=== PATIENT | female | born 1995 | race Caucasian/White ===

== ENCOUNTER 2016-07-03 21:50 | Emergency (ER) | payer OTHER ==
[~2016-07-03 21:50] MED LIST: BACT400T PO; CIPR500S PO; CIPR500T89 PO; CLAR1TAB2 PO; CYCL10TA PO; GABA-283 PO; LIDO1SOL7 IC; NEUR300C PO; PERC5TAB6 PO; claritin OR
[2016-07-04 00:49] LABS: CONTROL LINE UCG INT CTR LINE PRESENT
[2016-07-04] MEDS ORDERED: KETOROLAC 30 MG/ML VIAL (J1885) As Ordered ONE (01:28)
[2016-07-04 01:31] LABS: BASO % 0.5 % (0.0-1.0); EOS # 0.1 K/mm3 (0.0-0.50); EOS % 1.8 % (0.0-3.0); LARGE UNSTAINED CELL # 0.2 K/mm3 (0.0-0.4); LYMPH # 1.6 K/mm3 (1.5-6.5); LYMPH % 26.9 % (24.0-44.0); MEAN CORPUSCULAR HEMOGLOBIN 28.2 pg (27.0-33.0); MEAN CORPUSCULAR HGB CONC 32.5 g/dl (32.0-36.5); MEAN CORPUSCULAR VOLUME 86.7 fl (80.0-96.0); MONO # 0.5 K/mm3 (0.0-0.8); MONO % 7.8 % (0.0-5.0); NEUTROPHILS # 3.5 K/mm3 (1.8-7.7); PLATELET COUNT, AUTOMATED 230 k/mm3 (150-450); RED CELL DISTRIBUTION WIDTH 11.7 % (11.5-14.5); WHITE BLOOD COUNT 5.9 K/mm3 (4.0-10.0)
[2016-07-04 01:53] LABS: ALBUMIN 4.1 GM/DL (3.2-5.2); ALBUMIN/GLOBULIN RATIO 1.05 (1.00-1.93); ALKALINE PHOSPHATASE 76 U/L (45-117); ALT/SGPT 15 U/L (12-78); AMYLASE 45 U/L (25-115); ANION GAP 11 MEQ/L (8-16); AST/SGOT 11 U/L (15-37); BILIRUBIN,DIRECT < 0.1 MG/DL (0.0-0.2); BILIRUBIN,TOTAL 0.3 MG/DL (0.2-1.0); BLOOD UREA NITROGEN 12 MG/DL (7-18); CALCIUM LEVEL 8.8 MG/DL (8.5-10.1); CARBON DIOXIDE LEVEL 27 MEQ/L (21-32); CHLORIDE LEVEL 105 MEQ/L (98-107); CREATININE FOR GFR 0.77 MG/DL (0.55-1.02); GLOMERULAR FILTRATION RATE > 60.0 (>60); GLUCOSE, FASTING 85 MG/DL (70-105); POTASSIUM SERUM 3.7 MEQ/L (3.5-5.1); SODIUM LEVEL 143 MEQ/L (136-145)
[2016-07-04] MEDS ORDERED: ISOVUE-370 76% 100ML VIAL (Q9967) As Ordered ONE (01:57)
--- NOTE | 2016-07-04 02:40 | REPUSA ---
CLINICAL HISTORY: Abdominal pain TECHNIQUE : A CT of the abdomen and pelvis was performed following the administration of oral and int ravenous contrast from the level of the heart to the proximal femoral diaphyses. Multiplanar reformat s were also obtained in coronal and sagittal projections. COMPARISON: CT abdomen pelvis 03/31/2016 FINDINGS: LOWER CHEST: The lung bases are clear. Heart is normal in size. No pleural or pericardial effusion is seen. LIVER: The liver is normal in size and contour. No hepatic lesion is seen. The portal and hepatic vei ns are patent. BILIARY SYSTEM: No intrahepatic biliary ductal dilatation is seen. The common duct is normal in calib er. The gallbladder is unremarkable with no focal or diffuse wall thickening seen. No pericholecystic fluid is seen. No calcified biliary calculi are identified. PANCREAS: The pancreas is normal in size, contour and density. No solid or cystic pancreatic mass is seen. No pancreatic duct dilatation is seen. SPLEEN: The spleen is normal in size and without focal lesion. ADRENALS: The adrenal glands are unremarkable. KIDNEYS/URETERS: The kidneys are normal in size. There is a posterior right interpole cortical defect with low-attenuation on axial image 50. No stone, gross mass, suspicious cystic lesion, or hydroneph rosis. URINARY BLADDER: The urinary bladder is unremarkable without calcified stone, wall thickening or dive rticula seen. UTERUS/ADNEXA: Within normal size limits with no suspicious lesion. AORTA AND ILIAC ARTERIES: No aneurysmal dilatation of the aorta or iliac arteries is seen. LYMPH NODES: No enlarged adenopathy. GASTROINTESTINAL: Stomach, duodenum , appendix on axial images 67-94, and bowel normal in caliber wit h no abnormal dilatation, stenosis, or wall thickening. PERITONEUM/RETROPERITONEUM: No ascites or suspicious fluid collection, extraluminal air, or suspiciou s mass. ABDOMINAL/PELVIC WALL: No hernia is identified. OSSEOUS STRUCTURES/SOFT TISSUES: No suspicious osseous lesion, acute fracture, or soft tissue abnorma lity. IMPRESSION : Posterior right interpole cortical defect with low attenuation noted which may represent scarring or prior infarct, although in proper clinical setting focal pyelonephritis should also be considered.
[2016-07-04] MEDS ORDERED: DICYCLOMINE 10 MG CAP As Ordered ONE (03:42)
--- NOTE | 2016-07-04 03:50 | EDDOCDS ---
Nurse's Notes [facility] Name: Ambika Pond Age: 21 yrs Sex: Female : 1995 Arrival Date: 07/03/2016 Time: 21:50 Bed 12 Private MD: No Pcp Diagnosis: Abdominal and pelvic pain;Vomiting Presentation: 07/03 22:16 Presenting complaint: Patient states: right sided flank pain and fever x3 days. States ttb she has been vomiting. Denies symptoms. Acute neurological deficits are not present. Mechanism of Injury: No Mechanism of Injury. Adult Sepsis Screening: The patient does not have new or worsening altered mentation. Patient's respiratory rate is less than 22. Systolic blood pressure is greater than 100. Patient has a qSOFA score of 0- Negative Sepsis Screen. Suicide/Homicide risk assessment- the patient denies having any suicidal and/or homicidal ideations and does not present with any other emotional, behavioral or mental health complaints. Status: Patient is not a vehicle service attendant or dependent. Transition of care: patient was not received from another setting of care. 22:16 Acuity: TYRONE Level 3 ttb 22:16 Method Of Arrival: Walkin/Carried/Asstd ttb Triage Assessment: 22:19 General: Appears in no apparent distress, well nourished, well groomed, Behavior is ttb appropriate for age, cooperative, pleasant. Pain: Location: right flank Pain currently is 7 out of 10 on a pain scale. HIV screening NA for this visit Offered previously. Neurological: Level of Consciousness is awake, alert. Cardiovascular: Chest pain is denied. Respiratory: No deficits noted. Airway is patent Denies cough, shortness of breath. GI: Reports vomiting, Denies constipation, cramping, diarrhea, nausea. : Reports pain in right flank(s) Denies burning with urination, urinary frequency, urgency. Musculoskeletal: Range of motion intact in all extremities. 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 Tylenol 325 mg Oral tab 2 tabs every 4 hours (Last dose: 07/03/2016 15:00) - PMHx: Kidney stones; urethral stricture; UTI's, Frequent; - PSHx: Exploratory lap; kidney stents; urethral stricture repair; nephrostomy tube; ear surgery to left ear; Tonsillectomy; Lithotripsy; - Social history: Smoking status: Patient states former smoker of tobacco. Patient/guardian denies using alcohol, street drugs, No barriers to communication noted, The patient speaks fluent Syrian, Speaks appropriately for age. - Family history: Not pertinent. - : The pt / caregiver states he / she is not on anticoagulants. Home medication list is obtained from the patient. - Exposure Risk Screening:: None identified. Screenin/10 01:24 Screening information is obtained from the patient. Fall risk: No risks identified. kas2 Assistance ADL's: requires no assistance with activities of daily living. Abuse/DV Screen: The patient / caregiver reports he/she is: not in a situation that causes fear, pain or injury. Nutritional screening: No deficits noted. Advance Directives: Currently, there is no health care proxy. There is no active DNR order. There is no living will. There is no Power of Mold Repairer. home support is adequate. Assessment: 01:22 General: Appears in no apparent distress, uncomfortable, well nourished, well groomed, kas2 Behavior is appropriate for age, cooperative. Pain: Location: right flank area Pain currently is 4 out of 10 on a pain scale. Neurological: Level of Consciousness is awake, alert, Oriented to person, place, time. Cardiovascular: Capillary refill < 3 seconds Heart tones S1 S2 present Rhythm is sinus rhythm No ectopy. Respiratory: Airway is patent Respiratory effort is even, unlabored, Respiratory pattern is regular, symmetrical, Breath sounds are clear bilaterally. GI: Abdomen is flat, non- distended Bowel sounds present X 4 quads. Abd is soft and non tender X 4 quads. : No deficits noted. Derm: Skin is intact, is healthy with good turgor, Skin is dry, Skin is pink, warm & dry. Skin temperature is warm. 02:24 General: Patient sitting up in bed watching TV. Appears comfortable. No apparent kas2 distress. Denies pain or discomfort at this time. Call russell within reach. Will continue to monitor.. Vital Signs: 07/03 21:52 BP 156 / 97; Pulse 111; Resp 18 S; Temp 97.9(O); Pulse Ox 100% on R/A; Weight 72.57 kg dd6 (R); Height 5 ft. 9 in. (175.26 cm) (R); 07/04 00:49 BP 140 / 89; Pulse 88; Resp 18; Temp 98.1; Pulse Ox 97% ; Pain 8/10; jlm 03:48 BP 138 / 79; Pulse 82; Resp 18; Temp 98.0(O); Pulse Ox 99% on R/A; Pain 0/10; kas2 07/03 21:52 Body Mass Index 23.63 (72.57 kg, 175.26 cm) dd6 Vitals: 07/03 21:52 Log In Time: July 03, 2016 at 21:50. dd6 ED Course: 21:51 Patient visited by Hugh Roberts PCA. dd6 21:51 No Pcp is Private Physician. dd6 21:51 Patient moved to Waiting dd6 21:53 Patient moved to Pre RCE dd6 22:17 Triage Initiated ttb 22:34 UA Sent. ar3 07/04 00:50 Patient visited by Noemí Buck, Pump Tester. [facility] 01:01 Yoko Lancaster RN is Primary Nurse. ajs 01:01 Patient moved to 12 ajs 01:16 Israel Rabago DO is Attending Physician. mm11 01:16 Patient visited by Israel Rabago DO. mm11 01:22 Patient visited by Israel Rabago DO. mm11 01:24 Inserted saline lock: 20 gauge in left antecubital area and blood collected. [facility] patient tolerated the procedure well. No procedures done that require assistance. 01:25 Patient visited by Yoko Lancaster RN. kas2 01:25 Amylase Sent. kas2 01:26 Basic Metabolic Profile Sent. kas2 01:26 CBC with Diff Sent. kas2 01:26 Lipase Sent. kas2 01:26 Liver Profile Sent. kas2 02:25 Patient visited by Yoko Lancaster RN. kas2 02:51 CT ABD & PELVIS: IV Contrast Only Returned. EDMS 03:19 Patient visited by Yoko Lancaster RN. kas2 03:30 [facility] Payment Agreement was scanned into [employer] and attached to record. [facility] 03:37 Referral List is Referral Physician. mm11 03:48 Discontinued IV bleeding controlled, pressure dressing applied, No redness/swelling at [facility] site. 03:49 Patient visited by Yoko Lancaster RN. [facility] 03:49 The patient / caregiver is instructed regarding the plan of care and ED course. kas2 Administered Medications: 01:31 Drug: NS 0.9% 1000 ml [sodium chloride 0.9 % intravenous solution] Route: IV; Rate: kas2 bolus; Site: left antecubital; 01:32 Drug: ketorolac 30 mg [ketorolac 30 mg/mL (1 mL) injection solution (1 mL)] Route: IVP; kas2 Site: left antecubital; 03:47 Drug: Dicyclomine 10 mg [dicyclomine 10 mg capsule (1 caps)] Route: PO; kas2 Order Results: Lab Order: UA; SPEC'M 07/03/16 22:34 Test: APPEARANCE, URINE; Value: CLEAR; Range: CLEAR; Status: F Test: COLOR, URINE; Value: YELLOW; Range: YELLOW; Status: F Test: PH,URINE; Value: 5.0; Range: 5.0-9.0; Units: UNITS; Status: F Test: SPECIFIC GRAVITY URINE AUTO; Value: 1.013; Range: 1.002-1.035; Status: F Test: PROTEIN, URINE AUTO; Value: NEGATIVE; Range: NEGATIVE; Units: mg/dL; Status: F Test: GLUCOSE, URINE (UA) AUTO; Value: NEGATIVE; Range: NEGATIVE; Units: mg/dL; Status: F Test: KETONE, URINE AUTO; Value: NEGATIVE; Range: NEGATIVE; Units: mg/dL; Status: F Test: UROBILINOGEN, URINE AUTO; Value: 0.2; Range: 0.0-2.0; Units: mg/dL; Status: F Test: BILIRUBIN, URINE AUTO; Value: NEGATIVE; Range: NEGATIVE; Status: F Test: NITRITE, URINE AUTO; Value: NEGATIVE; Range: NEGATIVE; Status: F Test: LEUKOCYTE ESTERASE, URINE AUTO; Value: NEGATIVE; Range: NEGATIVE; Status: F Test: BLOOD, URINE BLOOD; Value: NEGATIVE; Range: NEGATIVE; Status: F Test: WBC, URINE AUTO; Value: 2; Range: 0-3; Units: /HPF; Status: F Test: RBC, URINE AUTO; Value: 4; Range: 0-3; Abnormal: Above high normal; Units: /HPF; Status: F Test: BACTERIA, URINE AUTO; Value: 1+; Range: NEGATIVE; Abnormal: Above high normal; Status: F Test: SQUAMOUS EPITHELIAL CELL UR AU; Value: 1; Range: 0-6; Units: /HPF; Status: F Test: MUCUS, URINE; Value: SMALL; Range: NEGATIVE; Status: F Test: HYALINE CAST, URINE AUTO; Value: 0; Range: 0-1; Units: /LPF; Status: F Lab Order: UCG- In Lab; SPEC' 07/03/16 21:50 Test: URINE PREG TEST; Value: NEGATIVE; Range: NEGATIVE; Status: F Lab Order: Amylase; SPEC' 07/04/16 01:21 Test: AMYLASE; Value: 45; Range: 25-115; Units: U/L; Status: F Lab Order: Basic Metabolic Profile; SPEC 07/04/16 01:21 Test: GLUCOSE, FASTING; Value: 85; Range: 70-105; Units: MG/DL; Status: F Test: BLOOD UREA NITROGEN; Value: 12; Range: 7-18; Units: MG/DL; Status: F Test: CREATININE FOR GFR; Value: 0.77; Range: 0.55-1.02; Units: MG/DL; Status: F Test: GLOMERULAR FILTRATION RATE; Value: > 60.0; Range: >60; Status: F Test: SODIUM LEVEL; Value: 143; Range: 136-145; Units: MEQ/L; Status: F Test: POTASSIUM SERUM; Value: 3.7; Range: 3.5-5.1; Units: MEQ/L; Status: F Test: CHLORIDE LEVEL; Value: 105; Range: 98-107; Units: MEQ/L; Status: F Test: CARBON DIOXIDE LEVEL; Value: 27; Range: 21-32; Units: MEQ/L; Status: F Test: ANION GAP; Value: 11; Range: 8-16; Units: MEQ/L; Status: F Test: CALCIUM LEVEL; Value: 8.8; Range: 8.5-10.1; Units: MG/DL; Status: F Test Note: ; Units are mL/min/1.73 m2 Chronic Kidney Disease Staging per NKF: Stage I & II GFR >=60 Normal to Mildly Decreased Stage III GFR 30-59 Moderately Decreased Stage IV GFR 15-29 Severely Decreased Stage V GFR <15 Very Little GFR Left ESRD GFR <15 on [employer] Lab Order: CBC with Diff; SPEC'M 07/04/16 01:21 Test: WHITE BLOOD COUNT; Value: 5.9; Range: 4.0-10.0; Units: K/mm3; Status: F Test: RED BLOOD COUNT; Value: 4.44; Range: 4.00-5.40; Units: M/mm3; Status: F Test: HEMOGLOBIN; Value: 12.5; Range: 12.0-16.0; Units: g/dl; Status: F Test: HEMATOCRIT; Value: 38.5; Range: 36.0-47.0; Units: %; Status: F Test: MEAN CORPUSCULAR VOLUME; Value: 86.7; Range: 80.0-96.0; Units: fl; Status: F Test: MEAN CORPUSCULAR HEMOGLOBIN; Value: 28.2; Range: 27.0-33.0; Units: pg; Status: F Test: MEAN CORPUSCULAR HGB CONC; Value: 32.5; Range: 32.0-36.5; Units: g/dl; Status: F Test: RED CELL DISTRIBUTION WIDTH; Value: 11.7; Range: 11.5-14.5; Units: %; Status: F Test: PLATELET COUNT, AUTOMATED; Value: 230; Range: 150-450; Units: k/mm3; Status: F Test: NEUTROPHILS %; Value: 60.0; Range: 36.0-66.0; Units: %; Status: F Test: LYMPH %; Value: 26.9; Range: 24.0-44.0; Units: %; Status: F Test: MONO %; Value: 7.8; Range: 0.0-5.0; Abnormal: Above high normal; Units: %; Status: F Test: EOS %; Value: 1.8; Range: 0.0-3.0; Units: %; Status: F Test: BASO %; Value: 0.5; Range: 0.0-1.0; Units: %; Status: F Test: LARGE UNSTAINED CELL %; Value: 3.0; Range: 0.0-4.0; Units: %; Status: F Test: NEUTROPHILS #; Value: 3.5; Range: 1.8-7.7; Units: K/mm3; Status: F Test: LYMPH #; Value: 1.6; Range: 1.5-6.5; Units: K/mm3; Status: F Test: MONO #; Value: 0.5; Range: 0.0-0.8; Units: K/mm3; Status: F Test: EOS #; Value: 0.1; Range: 0.0-0.50; Units: K/mm3; Status: F Test: BASO #; Value: 0.0; Range: 0.0-0.2; Units: K/mm3; Status: F Test: LARGE UNSTAINED CELL #; Value: 0.2; Range: 0.0-0.4; Units: K/mm3; Status: F Lab Order: Lipase; SPEC'M 07/04/16 01:21 Test: LIPASE; Value: 69; Range: 73-393; Abnormal: Below low normal; Units: U/L; Status: F Lab Order: Liver Profile; SPEC'M 07/04/16 01:21 Test: AST/SGOT; Value: 11; Range: 15-37; Abnormal: Below low normal; Units: U/L; Status: F Test: ALT/SGPT; Value: 15; Range: 12-78; Units: U/L; Status: F Test: ALKALINE PHOSPHATASE; Value: 76; Range: 45-117; Units: U/L; Status: F Test: BILIRUBIN,TOTAL; Value: 0.3; Range: 0.2-1.0; Units: MG/DL; Status: F Test: BILIRUBIN,DIRECT; Value: < 0.1; Range: 0.0-0.2; Units: MG/DL; Status: F Test: TOTAL PROTEIN; Value: 8.0; Range: 6.4-8.2; Units: GM/DL; Status: F Test: ALBUMIN; Value: 4.1; Range: 3.2-5.2; Units: GM/DL; Status: F Test: ALBUMIN/GLOBULIN RATIO; Value: 1.05; Range: 1.00-1.93; Status: F Radiology Order: CT ABD & PELVIS: IV Contrast Only Test: CT ABD & PELVIS: IV Contrast Only REASON FOR EXAMINATION: Appendicitis; ; CLINICAL HISTORY: Abdominal pain; TECHNIQUE : A CT of the abdomen and pelvis was performed following the administration of oral and int; ravenous contrast from the level of the heart to the proximal femoral diaphyses. Multiplanar reformat; s were also obtained in coronal and sagittal projections.; COMPARISON: CT abdomen pelvis 03/31/2016; FINDINGS:; LOWER CHEST: The lung bases are clear. Heart is normal in size. No pleural or pericardial effusion is; seen.; LIVER: The liver is normal in size and contour. No hepatic lesion is seen. The portal and hepatic vei; ns are patent.; BILIARY SYSTEM: No intrahepatic biliary ductal dilatation is seen. The common duct is normal in calib; er. The gallbladder is unremarkable with no focal or diffuse wall thickening seen. No pericholecystic; fluid is seen. No calcified biliary calculi are identified.; PANCREAS: The pancreas is normal in size, contour and density. No solid or cystic pancreatic mass is; seen. No pancreatic duct dilatation is seen.; SPLEEN: The spleen is normal in size and without focal lesion.; ADRENALS: The adrenal glands are unremarkable.; KIDNEYS/URETERS: The kidneys are normal in size. There is a posterior right interpole cortical defect; with low-attenuation on axial image 50. No stone, gross mass, suspicious cystic lesion, or hydroneph; rosis.; URINARY BLADDER: The urinary bladder is unremarkable without calcified stone, wall thickening or dive; rticula seen.; UTERUS/ADNEXA: Within normal size limits with no suspicious lesion.; AORTA AND ILIAC ARTERIES: No aneurysmal dilatation of the aorta or iliac arteries is seen.; LYMPH NODES: No enlarged adenopathy.; GASTROINTESTINAL: Stomach, duodenum , appendix on axial images 67-94, and bowel normal in caliber wit; h no abnormal dilatation, stenosis, or wall thickening.; PERITONEUM/RETROPERITONEUM: No ascites or suspicious fluid collection, extraluminal air, or suspiciou; s mass.; ABDOMINAL/PELVIC WALL: No hernia is identified.; OSSEOUS STRUCTURES/SOFT TISSUES: No suspicious osseous lesion, acute fracture, or soft tissue abnorma; lity.; IMPRESSION :; Posterior right interpole cortical defect with low attenuation noted which may represent scarring or; prior infarct, although in proper clinical setting focal pyelonephritis should also be considered.; ; Outcome: 03:37 Discharge ordered by Provider. mm11 03:48 Discharge Assessment: patient administered narcotics - no. The following High Risk [facility] Discharge criteria are identified: None. Discharged to home ambulatory. Condition: good Condition: stable Condition: improved. CT Study completed. Property :Personal belongings accompany Pt. 03:49 Patient left the ED. [facility] Signatures: Dispatcher [employer] EDMS Israel Rabago DO DO mm11 Hugh Roberts, SHAREPOINT MANAGER SHAREPOINT MANAGER dd6 Clare Barry, SHAREPOINT MANAGER SHAREPOINT MANAGER ar3 Julee Car Teresa, RN RN ttNoemí Gauthier, Pump Tester Unit Mandie Chavez Kim,JAMES RN kas2 MTDD
--- NOTE | 2016-07-04 03:50 | EDDOCDS ---
Physician Documentation [facility] Name: Ambika Pond Age: 21 yrs Sex: Female : 1995 Arrival Date: 07/03/2016 Time: 21:50 Bed 12 Private MD: No Pcp Disposition: 07/04/16 03:37 Discharged to Home/Self Care. Impression: Abdominal and pelvic pain, Vomiting. - Condition is Stable. - Discharge Instructions: Abdominal Pain, Adult, Nausea and Vomiting. - Prescriptions for ZOFRAN ODT 4 mg - dissolve 1 tablet by ORAL route 4 times per day As needed do not chew, do not swallow whole; 10 tablet. - Medication Reconciliation, Local Pharmacy Hours form. - Follow up: Referral List; When: Call to arrange an appointment; Reason: To establish care. - Problem is an ongoing problem. - Symptoms have improved. Historical: - Allergies: Ampicillin (Hives); Conscious sedation causes conversion disorder; - Home Meds: 1. Tylenol 325 mg Oral tab 2 tabs every 4 hours (Last dose: 07/03/2016 15:00) - PMHx: Kidney stones; urethral stricture; UTI's, Frequent; - PSHx: Exploratory lap; kidney stents; urethral stricture repair; nephrostomy tube; ear surgery to left ear; Tonsillectomy; Lithotripsy; - Social history: Smoking status: Patient states former smoker of tobacco. Patient/guardian denies using alcohol, street drugs, No barriers to communication noted, The patient speaks fluent Polish, Speaks appropriately for age. - Family history: Not pertinent. - : The pt / caregiver states he / she is not on anticoagulants. Home medication list is obtained from the patient. - Exposure Risk Screening:: None identified. 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 9 in. (175.26 cm) (R); 07/04 00:49 BP 140 / 89; Pulse 88; Resp 18; Temp 98.1; Pulse Ox 97% ; Pain 8/10; jlm 03:48 BP 138 / 79; Pulse 82; Resp 18; Temp 98.0(O); Pulse Ox 99% on R/A; Pain 0/10; kas2 07/03 21:52 Body Mass Index 23.63 (72.57 kg, 175.26 cm) dd6 MDM: 07/03 22:26 UA Ordered. EDMS 23:47 UCG- In Lab Ordered. EDMS 23:47 Urine Culture Ordered. EDMS 07/04 01:18 UA Reviewed. mm11 01:18 UCG- In Lab Reviewed. mm11 01:23 NS 0.9% 1000 ml IV at bolus once ordered. mm11 01:23 ketorolac 30 mg IVP once ordered. mm11 01:23 Undress patient appropriately for examination ordered. mm11 01:24 Amylase Ordered. EDMS 01:24 Basic Metabolic Profile Ordered. EDMS 01:24 CBC with Diff Ordered. EDMS 01:24 Lipase Ordered. EDMS 01:24 Liver Profile Ordered. EDMS 01:24 CT ABD & PELVIS: IV Contrast Only Ordered. EDMS 01:24 NOTHING BY MOUTH+DIET ordered. EDMS 01:55 CBC with Diff Reviewed. mm11 01:55 Lipase Reviewed. mm11 01:55 Liver Profile Reviewed. mm11 01:55 Amylase Reviewed. mm11 01:55 Basic Metabolic Profile Reviewed. mm11 02:48 Financial registration complete. [facility] 03:19 CT ABD & PELVIS: IV Contrast Only Reviewed. mm11 03:30 [facility] Payment Agreement was scanned into [employer] and attached to record. [facility] 03:37 Dicyclomine 10 mg PO once ordered. mm11 Administered Medications: 01:31 Drug: NS 0.9% 1000 ml [sodium chloride 0.9 % intravenous solution] Route: IV; Rate: kas2 bolus; Site: left antecubital; 01:32 Drug: ketorolac 30 mg [ketorolac 30 mg/mL (1 mL) injection solution (1 mL)] Route: IVP; kas2 Site: left antecubital; 03:47 Drug: Dicyclomine 10 mg [dicyclomine 10 mg capsule (1 caps)] Route: PO; kas2 Signatures: Dispatcher [employer] EDMS Israel Rabago DO DO mm11 Deirdre Turcios RN RN ttb Hook, Sandra Yoko Linton RN RN kas2 The chart was reviewed and I authenticate all verbal orders and agree with the evaluation and treatment provided.Attachments: 03:30 [facility] Payment Agreement [facility] MTDD
--- NOTE | 2016-07-06 04:50 | EDDOCDS ---
Physician Documentation [facility] Name: Ambika Pond Age: 21 yrs Sex: Female : 1995 Arrival Date: 07/03/2016 Time: 21:50 Bed 12 Private MD: No Pcp Disposition: 07/04/16 03:37 Discharged to Home/Self Care. Impression: Abdominal and pelvic pain, Vomiting. - Condition is Stable. - Discharge Instructions: Abdominal Pain, Adult, Nausea and Vomiting. - Prescriptions for ZOFRAN ODT 4 mg - dissolve 1 tablet by ORAL route 4 times per day As needed do not chew, do not swallow whole; 10 tablet. - Medication Reconciliation, Local Pharmacy Hours form. - Follow up: Referral List; When: Call to arrange an appointment; Reason: To establish care. - Problem is an ongoing problem. - Symptoms have improved. Historical: - Allergies: Ampicillin (Hives); Conscious sedation causes conversion disorder; - Home Meds: 1. Tylenol 325 mg Oral tab 2 tabs every 4 hours (Last dose: 07/03/2016 15:00) - PMHx: Kidney stones; urethral stricture; UTI's, Frequent; - PSHx: Exploratory lap; kidney stents; urethral stricture repair; nephrostomy tube; ear surgery to left ear; Tonsillectomy; Lithotripsy; - Social history: Smoking status: Patient states former smoker of tobacco. Patient/guardian denies using alcohol, street drugs, No barriers to communication noted, The patient speaks fluent Tajik, Speaks appropriately for age. - Family history: Not pertinent. - : The pt / caregiver states he / she is not on anticoagulants. Home medication list is obtained from the patient. - Exposure Risk Screening:: None identified. 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 9 in. (175.26 cm) (R); 07/04 00:49 BP 140 / 89; Pulse 88; Resp 18; Temp 98.1; Pulse Ox 97% ; Pain 8/10; jlm 03:48 BP 138 / 79; Pulse 82; Resp 18; Temp 98.0(O); Pulse Ox 99% on R/A; Pain 0/10; kas2 07/03 21:52 Body Mass Index 23.63 (72.57 kg, 175.26 cm) dd6 MDM: 07/03 22:26 UA Ordered. EDMS 23:47 UCG- In Lab Ordered. EDMS 23:47 Urine Culture Ordered. EDMS 07/04 01:18 UA Reviewed. mm11 01:18 UCG- In Lab Reviewed. mm11 01:23 NS 0.9% 1000 ml IV at bolus once ordered. mm11 01:23 ketorolac 30 mg IVP once ordered. mm11 01:23 Undress patient appropriately for examination ordered. mm11 01:24 Amylase Ordered. EDMS 01:24 Basic Metabolic Profile Ordered. EDMS 01:24 CBC with Diff Ordered. EDMS 01:24 Lipase Ordered. EDMS 01:24 Liver Profile Ordered. EDMS 01:24 CT ABD & PELVIS: IV Contrast Only Ordered. EDMS 01:24 NOTHING BY MOUTH+DIET ordered. EDMS 01:55 CBC with Diff Reviewed. mm11 01:55 Lipase Reviewed. mm11 01:55 Liver Profile Reviewed. mm11 01:55 Amylase Reviewed. mm11 01:55 Basic Metabolic Profile Reviewed. mm11 02:48 Financial registration complete. [facility] 03:19 CT ABD & PELVIS: IV Contrast Only Reviewed. mm11 03:30 [facility] Payment Agreement was scanned into [employer] and attached to record. [facility] 03:37 Dicyclomine 10 mg PO once ordered. mm11 07:53 T-Sheet-- Draft Copy was scanned into [employer] and attached to record. 10:44 Radiology Report was scanned into [employer] and attached to record. gb Administered Medications: 01:31 Drug: NS 0.9% 1000 ml [sodium chloride 0.9 % intravenous solution] Route: IV; Rate: kas2 bolus; Site: left antecubital; 01:32 Drug: ketorolac 30 mg [ketorolac 30 mg/mL (1 mL) injection solution (1 mL)] Route: IVP; kas2 Site: left antecubital; 03:47 Drug: Dicyclomine 10 mg [dicyclomine 10 mg capsule (1 caps)] Route: PO; kas2 Signatures: Dispatcher [employer] EDMS Betancourt Emerita, Reg Reg gb Israel Rabago, DO mm11 Deirdre Turcios RN RN Mandie Rees [facility] Yoko LancasterRN RN kas2 The chart was reviewed and I authenticate all verbal orders and agree with the evaluation and treatment provided.Attachments: 03:30 [facility] Payment Agreement [facility] 07:53 T-Sheet-- Draft Copy Chart Complete MTDD
--- NOTE | 2016-07-06 04:50 | EDDOCDS ---
Physician Documentation [facility] Name: Ambika Pond Age: 21 yrs Sex: Female : 1995 Arrival Date: 07/03/2016 Time: 21:50 Bed 12 Private MD: No Pcp Disposition: 07/04/16 03:37 Discharged to Home/Self Care. Impression: Abdominal and pelvic pain, Vomiting. - Condition is Stable. - Discharge Instructions: Abdominal Pain, Adult, Nausea and Vomiting. - Prescriptions for ZOFRAN ODT 4 mg - dissolve 1 tablet by ORAL route 4 times per day As needed do not chew, do not swallow whole; 10 tablet. - Medication Reconciliation, Local Pharmacy Hours form. - Follow up: Referral List; When: Call to arrange an appointment; Reason: To establish care. - Problem is an ongoing problem. - Symptoms have improved. Historical: - Allergies: Ampicillin (Hives); Conscious sedation causes conversion disorder; - Home Meds: 1. Tylenol 325 mg Oral tab 2 tabs every 4 hours (Last dose: 07/03/2016 15:00) - PMHx: Kidney stones; urethral stricture; UTI's, Frequent; - PSHx: Exploratory lap; kidney stents; urethral stricture repair; nephrostomy tube; ear surgery to left ear; Tonsillectomy; Lithotripsy; - Social history: Smoking status: Patient states former smoker of tobacco. Patient/guardian denies using alcohol, street drugs, No barriers to communication noted, The patient speaks fluent Nepali, Speaks appropriately for age. - Family history: Not pertinent. - : The pt / caregiver states he / she is not on anticoagulants. Home medication list is obtained from the patient. - Exposure Risk Screening:: None identified. 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 9 in. (175.26 cm) (R); 07/04 00:49 BP 140 / 89; Pulse 88; Resp 18; Temp 98.1; Pulse Ox 97% ; Pain 8/10; jlm 03:48 BP 138 / 79; Pulse 82; Resp 18; Temp 98.0(O); Pulse Ox 99% on R/A; Pain 0/10; kas2 07/03 21:52 Body Mass Index 23.63 (72.57 kg, 175.26 cm) dd6 MDM: 07/03 22:26 UA Ordered. EDMS 23:47 UCG- In Lab Ordered. EDMS 23:47 Urine Culture Ordered. EDMS 07/04 01:18 UA Reviewed. mm11 01:18 UCG- In Lab Reviewed. mm11 01:23 NS 0.9% 1000 ml IV at bolus once ordered. mm11 01:23 ketorolac 30 mg IVP once ordered. mm11 01:23 Undress patient appropriately for examination ordered. mm11 01:24 Amylase Ordered. EDMS 01:24 Basic Metabolic Profile Ordered. EDMS 01:24 CBC with Diff Ordered. EDMS 01:24 Lipase Ordered. EDMS 01:24 Liver Profile Ordered. EDMS 01:24 CT ABD & PELVIS: IV Contrast Only Ordered. EDMS 01:24 NOTHING BY MOUTH+DIET ordered. EDMS 01:55 CBC with Diff Reviewed. mm11 01:55 Lipase Reviewed. mm11 01:55 Liver Profile Reviewed. mm11 01:55 Amylase Reviewed. mm11 01:55 Basic Metabolic Profile Reviewed. mm11 02:48 Financial registration complete. [facility] 03:19 CT ABD & PELVIS: IV Contrast Only Reviewed. mm11 03:30 [facility] Payment Agreement was scanned into [employer] and attached to record. [facility] 03:37 Dicyclomine 10 mg PO once ordered. mm11 07:53 T-Sheet-- Draft Copy was scanned into [employer] and attached to record. 10:44 Radiology Report was scanned into [employer] and attached to record. gb Administered Medications: 01:31 Drug: NS 0.9% 1000 ml [sodium chloride 0.9 % intravenous solution] Route: IV; Rate: kas2 bolus; Site: left antecubital; 01:32 Drug: ketorolac 30 mg [ketorolac 30 mg/mL (1 mL) injection solution (1 mL)] Route: IVP; kas2 Site: left antecubital; 03:47 Drug: Dicyclomine 10 mg [dicyclomine 10 mg capsule (1 caps)] Route: PO; kas2 Signatures: Dispatcher [employer] EDMS Betancourt Emerita, Reg Reg gb Israel Rabago, DO mm11 Deirdre Turcios RN RN Mandie Rees [facility] Yoko LancasterRN RN kas2 The chart was reviewed and I authenticate all verbal orders and agree with the evaluation and treatment provided.Attachments: 03:30 [facility] Payment Agreement [facility] 07:53 T-Sheet-- Draft Copy Chart Complete MTDD
--- NOTE | 2016-07-06 04:50 | EDDOCDS ---
Nurse's Notes [facility] Name: Ambika Pond Age: 21 yrs Sex: Female : 1995 Arrival Date: 07/03/2016 Time: 21:50 Bed 12 Private MD: No Pcp Diagnosis: Abdominal and pelvic pain;Vomiting Presentation: 07/03 22:16 Presenting complaint: Patient states: right sided flank pain and fever x3 days. States ttb she has been vomiting. Denies symptoms. Acute neurological deficits are not present. Mechanism of Injury: No Mechanism of Injury. Adult Sepsis Screening: The patient does not have new or worsening altered mentation. Patient's respiratory rate is less than 22. Systolic blood pressure is greater than 100. Patient has a qSOFA score of 0- Negative Sepsis Screen. Suicide/Homicide risk assessment- the patient denies having any suicidal and/or homicidal ideations and does not present with any other emotional, behavioral or mental health complaints. Status: Patient is not a professional services manager or dependent. Transition of care: patient was not received from another setting of care. 22:16 Acuity: TYRONE Level 3 ttb 22:16 Method Of Arrival: Walkin/Carried/Asstd ttb Triage Assessment: 22:19 General: Appears in no apparent distress, well nourished, well groomed, Behavior is ttb appropriate for age, cooperative, pleasant. Pain: Location: right flank Pain currently is 7 out of 10 on a pain scale. HIV screening NA for this visit Offered previously. Neurological: Level of Consciousness is awake, alert. Cardiovascular: Chest pain is denied. Respiratory: No deficits noted. Airway is patent Denies cough, shortness of breath. GI: Reports vomiting, Denies constipation, cramping, diarrhea, nausea. : Reports pain in right flank(s) Denies burning with urination, urinary frequency, urgency. Musculoskeletal: Range of motion intact in all extremities. 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 Tylenol 325 mg Oral tab 2 tabs every 4 hours (Last dose: 07/03/2016 15:00) - PMHx: Kidney stones; urethral stricture; UTI's, Frequent; - PSHx: Exploratory lap; kidney stents; urethral stricture repair; nephrostomy tube; ear surgery to left ear; Tonsillectomy; Lithotripsy; - Social history: Smoking status: Patient states former smoker of tobacco. Patient/guardian denies using alcohol, street drugs, No barriers to communication noted, The patient speaks fluent Panamanian, Speaks appropriately for age. - Family history: Not pertinent. - : The pt / caregiver states he / she is not on anticoagulants. Home medication list is obtained from the patient. - Exposure Risk Screening:: None identified. Screenin/10 01:24 Screening information is obtained from the patient. Fall risk: No risks identified. kas2 Assistance ADL's: requires no assistance with activities of daily living. Abuse/DV Screen: The patient / caregiver reports he/she is: not in a situation that causes fear, pain or injury. Nutritional screening: No deficits noted. Advance Directives: Currently, there is no health care proxy. There is no active DNR order. There is no living will. There is no Power of Solid Waste Facility Operator. home support is adequate. Assessment: 01:22 General: Appears in no apparent distress, uncomfortable, well nourished, well groomed, kas2 Behavior is appropriate for age, cooperative. Pain: Location: right flank area Pain currently is 4 out of 10 on a pain scale. Neurological: Level of Consciousness is awake, alert, Oriented to person, place, time. Cardiovascular: Capillary refill < 3 seconds Heart tones S1 S2 present Rhythm is sinus rhythm No ectopy. Respiratory: Airway is patent Respiratory effort is even, unlabored, Respiratory pattern is regular, symmetrical, Breath sounds are clear bilaterally. GI: Abdomen is flat, non- distended Bowel sounds present X 4 quads. Abd is soft and non tender X 4 quads. : No deficits noted. Derm: Skin is intact, is healthy with good turgor, Skin is dry, Skin is pink, warm & dry. Skin temperature is warm. 02:24 General: Patient sitting up in bed watching TV. Appears comfortable. No apparent kas2 distress. Denies pain or discomfort at this time. Call russell within reach. Will continue to monitor.. Vital Signs: 07/03 21:52 BP 156 / 97; Pulse 111; Resp 18 S; Temp 97.9(O); Pulse Ox 100% on R/A; Weight 72.57 kg dd6 (R); Height 5 ft. 9 in. (175.26 cm) (R); 07/04 00:49 BP 140 / 89; Pulse 88; Resp 18; Temp 98.1; Pulse Ox 97% ; Pain 8/10; jlm 03:48 BP 138 / 79; Pulse 82; Resp 18; Temp 98.0(O); Pulse Ox 99% on R/A; Pain 0/10; kas2 07/03 21:52 Body Mass Index 23.63 (72.57 kg, 175.26 cm) dd6 Vitals: 07/03 21:52 Log In Time: July 03, 2016 at 21:50. dd6 ED Course: 21:51 Patient visited by Hugh Roberts PCA. dd6 21:51 No Pcp is Private Physician. dd6 21:51 Patient moved to Waiting dd6 21:53 Patient moved to Pre RCE dd6 22:17 Triage Initiated ttb 22:34 UA Sent. ar3 07/04 00:50 Patient visited by Noemí Buck, Brass Bobbin Winder. [facility] 01:01 Yoko Lancaster RN is Primary Nurse. ajs 01:01 Patient moved to 12 ajs 01:16 Israel Rabago DO is Attending Physician. mm11 01:16 Patient visited by Israel Rabago DO. mm11 01:22 Patient visited by Israel Rabago DO. mm11 01:24 Inserted saline lock: 20 gauge in left antecubital area and blood collected. The [facility]2 patient tolerated the procedure well. No procedures done that require assistance. 01:25 Patient visited by Yoko Lancaster RN. kas2 01:25 Amylase Sent. kas2 01:26 Basic Metabolic Profile Sent. kas2 01:26 CBC with Diff Sent. kas2 01:26 Lipase Sent. kas2 01:26 Liver Profile Sent. kas2 02:25 Patient visited by Yoko Lancaster RN. kas2 02:51 CT ABD & PELVIS: IV Contrast Only Returned. EDMS 03:19 Patient visited by Yoko Lancaster RN. kas2 03:30 [facility] Payment Agreement was scanned into [employer] and attached to record. [facility] 03:37 Referral List is Referral Physician. mm11 03:48 Discontinued IV bleeding controlled, pressure dressing applied, No redness/swelling at [facility] site. 03:49 Patient visited by Yoko Lancaster RN. [facility] 03:49 The patient / caregiver is instructed regarding the plan of care and ED course. kas2 07:53 T-Sheet-- Draft Copy was scanned into [employer] and attached to record. 10:44 Radiology Report was scanned into [employer] and attached to record. gb Administered Medications: 01:31 Drug: NS 0.9% 1000 ml [sodium chloride 0.9 % intravenous solution] Route: IV; Rate: kas2 bolus; Site: left antecubital; 01:32 Drug: ketorolac 30 mg [ketorolac 30 mg/mL (1 mL) injection solution (1 mL)] Route: IVP; kas2 Site: left antecubital; 03:47 Drug: Dicyclomine 10 mg [dicyclomine 10 mg capsule (1 caps)] Route: PO; kas2 Order Results: Lab Order: UA; SPEC'M 07/03/16 22:34 Test: APPEARANCE, URINE; Value: CLEAR; Range: CLEAR; Status: F Test: COLOR, URINE; Value: YELLOW; Range: YELLOW; Status: F Test: PH,URINE; Value: 5.0; Range: 5.0-9.0; Units: UNITS; Status: F Test: SPECIFIC GRAVITY URINE AUTO; Value: 1.013; Range: 1.002-1.035; Status: F Test: PROTEIN, URINE AUTO; Value: NEGATIVE; Range: NEGATIVE; Units: mg/dL; Status: F Test: GLUCOSE, URINE (UA) AUTO; Value: NEGATIVE; Range: NEGATIVE; Units: mg/dL; Status: F Test: KETONE, URINE AUTO; Value: NEGATIVE; Range: NEGATIVE; Units: mg/dL; Status: F Test: UROBILINOGEN, URINE AUTO; Value: 0.2; Range: 0.0-2.0; Units: mg/dL; Status: F Test: BILIRUBIN, URINE AUTO; Value: NEGATIVE; Range: NEGATIVE; Status: F Test: NITRITE, URINE AUTO; Value: NEGATIVE; Range: NEGATIVE; Status: F Test: LEUKOCYTE ESTERASE, URINE AUTO; Value: NEGATIVE; Range: NEGATIVE; Status: F Test: BLOOD, URINE BLOOD; Value: NEGATIVE; Range: NEGATIVE; Status: F Test: WBC, URINE AUTO; Value: 2; Range: 0-3; Units: /HPF; Status: F Test: RBC, URINE AUTO; Value: 4; Range: 0-3; Abnormal: Above high normal; Units: /HPF; Status: F Test: BACTERIA, URINE AUTO; Value: 1+; Range: NEGATIVE; Abnormal: Above high normal; Status: F Test: SQUAMOUS EPITHELIAL CELL UR AU; Value: 1; Range: 0-6; Units: /HPF; Status: F Test: MUCUS, URINE; Value: SMALL; Range: NEGATIVE; Status: F Test: HYALINE CAST, URINE AUTO; Value: 0; Range: 0-1; Units: /LPF; Status: F Lab Order: UCG- In Lab; [facility]' 07/03/16 21:50 Test: URINE PREG TEST; Value: NEGATIVE; Range: NEGATIVE; Status: F Lab Order: Urine Culture; [facility] 07/03/16 21:50 Test: URINE CULTURE; Value: URINE CULTURE RESULT; Status: F Test: URINE CULTURE; Value: NO GROWTH CLINICAL SIGNIFICANCE 2 OR MORE ORGANISMS; Status: F Lab Order: Amylase; [facility] 07/04/16 01:21 Test: AMYLASE; Value: 45; Range: 25-115; Units: U/L; Status: F Lab Order: Basic Metabolic Profile; [facility] 07/04/16 01:21 Test: GLUCOSE, FASTING; Value: 85; Range: 70-105; Units: MG/DL; Status: F Test: BLOOD UREA NITROGEN; Value: 12; Range: 7-18; Units: MG/DL; Status: F Test: CREATININE FOR GFR; Value: 0.77; Range: 0.55-1.02; Units: MG/DL; Status: F Test: GLOMERULAR FILTRATION RATE; Value: > 60.0; Range: >60; Status: F Test: SODIUM LEVEL; Value: 143; Range: 136-145; Units: MEQ/L; Status: F Test: POTASSIUM SERUM; Value: 3.7; Range: 3.5-5.1; Units: MEQ/L; Status: F Test: CHLORIDE LEVEL; Value: 105; Range: 98-107; Units: MEQ/L; Status: F Test: CARBON DIOXIDE LEVEL; Value: 27; Range: 21-32; Units: MEQ/L; Status: F Test: ANION GAP; Value: 11; Range: 8-16; Units: MEQ/L; Status: F Test: CALCIUM LEVEL; Value: 8.8; Range: 8.5-10.1; Units: MG/DL; Status: F Test Note: ; Units are mL/min/1.73 m2 Chronic Kidney Disease Staging per NKF: Stage I & II GFR >=60 Normal to Mildly Decreased Stage III GFR 30-59 Moderately Decreased Stage IV GFR 15-29 Severely Decreased Stage V GFR <15 Very Little GFR Left ESRD GFR <15 on FINANCIAL ASSISTANT Lab Order: CBC with Diff; SPEC'M 07/04/16 01:21 Test: WHITE BLOOD COUNT; Value: 5.9; Range: 4.0-10.0; Units: K/mm3; Status: F Test: RED BLOOD COUNT; Value: 4.44; Range: 4.00-5.40; Units: M/mm3; Status: F Test: HEMOGLOBIN; Value: 12.5; Range: 12.0-16.0; Units: g/dl; Status: F Test: HEMATOCRIT; Value: 38.5; Range: 36.0-47.0; Units: %; Status: F Test: MEAN CORPUSCULAR VOLUME; Value: 86.7; Range: 80.0-96.0; Units: fl; Status: F Test: MEAN CORPUSCULAR HEMOGLOBIN; Value: 28.2; Range: 27.0-33.0; Units: pg; Status: F Test: MEAN CORPUSCULAR HGB CONC; Value: 32.5; Range: 32.0-36.5; Units: g/dl; Status: F Test: RED CELL DISTRIBUTION WIDTH; Value: 11.7; Range: 11.5-14.5; Units: %; Status: F Test: PLATELET COUNT, AUTOMATED; Value: 230; Range: 150-450; Units: k/mm3; Status: F Test: NEUTROPHILS %; Value: 60.0; Range: 36.0-66.0; Units: %; Status: F Test: LYMPH %; Value: 26.9; Range: 24.0-44.0; Units: %; Status: F Test: MONO %; Value: 7.8; Range: 0.0-5.0; Abnormal: Above high normal; Units: %; Status: F Test: EOS %; Value: 1.8; Range: 0.0-3.0; Units: %; Status: F Test: BASO %; Value: 0.5; Range: 0.0-1.0; Units: %; Status: F Test: LARGE UNSTAINED CELL %; Value: 3.0; Range: 0.0-4.0; Units: %; Status: F Test: NEUTROPHILS #; Value: 3.5; Range: 1.8-7.7; Units: K/mm3; Status: F Test: LYMPH #; Value: 1.6; Range: 1.5-6.5; Units: K/mm3; Status: F Test: MONO #; Value: 0.5; Range: 0.0-0.8; Units: K/mm3; Status: F Test: EOS #; Value: 0.1; Range: 0.0-0.50; Units: K/mm3; Status: F Test: BASO #; Value: 0.0; Range: 0.0-0.2; Units: K/mm3; Status: F Test: LARGE UNSTAINED CELL #; Value: 0.2; Range: 0.0-0.4; Units: K/mm3; Status: F Lab Order: Lipase; SPEC'M 07/04/16 01:21 Test: LIPASE; Value: 69; Range: 73-393; Abnormal: Below low normal; Units: U/L; Status: F Lab Order: Liver Profile; SPEC'M 07/04/16 01:21 Test: AST/SGOT; Value: 11; Range: 15-37; Abnormal: Below low normal; Units: U/L; Status: F Test: ALT/SGPT; Value: 15; Range: 12-78; Units: U/L; Status: F Test: ALKALINE PHOSPHATASE; Value: 76; Range: 45-117; Units: U/L; Status: F Test: BILIRUBIN,TOTAL; Value: 0.3; Range: 0.2-1.0; Units: MG/DL; Status: F Test: BILIRUBIN,DIRECT; Value: < 0.1; Range: 0.0-0.2; Units: MG/DL; Status: F Test: TOTAL PROTEIN; Value: 8.0; Range: 6.4-8.2; Units: GM/DL; Status: F Test: ALBUMIN; Value: 4.1; Range: 3.2-5.2; Units: GM/DL; Status: F Test: ALBUMIN/GLOBULIN RATIO; Value: 1.05; Range: 1.00-1.93; Status: F Radiology Order: CT ABD & PELVIS: IV Contrast Only Test: CT ABD & PELVIS: IV Contrast Only REASON FOR EXAMINATION: Appendicitis; ; CLINICAL HISTORY: Abdominal pain; TECHNIQUE : A CT of the abdomen and pelvis was performed following the administration of oral and int; ravenous contrast from the level of the heart to the proximal femoral diaphyses. Multiplanar reformat; s were also obtained in coronal and sagittal projections.; COMPARISON: CT abdomen pelvis 03/31/2016; FINDINGS:; LOWER CHEST: The lung bases are clear. Heart is normal in size. No pleural or pericardial effusion is; seen.; LIVER: The liver is normal in size and contour. No hepatic lesion is seen. The portal and hepatic vei; ns are patent.; BILIARY SYSTEM: No intrahepatic biliary ductal dilatation is seen. The common duct is normal in calib; er. The gallbladder is unremarkable with no focal or diffuse wall thickening seen. No pericholecystic; fluid is seen. No calcified biliary calculi are identified.; PANCREAS: The pancreas is normal in size, contour and density. No solid or cystic pancreatic mass is; seen. No pancreatic duct dilatation is seen.; SPLEEN: The spleen is normal in size and without focal lesion.; ADRENALS: The adrenal glands are unremarkable.; KIDNEYS/URETERS: The kidneys are normal in size. There is a posterior right interpole cortical defect; with low-attenuation on axial image 50. No stone, gross mass, suspicious cystic lesion, or hydroneph; rosis.; URINARY BLADDER: The urinary bladder is unremarkable without calcified stone, wall thickening or dive; rticula seen.; UTERUS/ADNEXA: Within normal size limits with no suspicious lesion.; AORTA AND ILIAC ARTERIES: No aneurysmal dilatation of the aorta or iliac arteries is seen.; LYMPH NODES: No enlarged adenopathy.; GASTROINTESTINAL: Stomach, duodenum , appendix on axial images 67-94, and bowel normal in caliber wit; h no abnormal dilatation, stenosis, or wall thickening.; PERITONEUM/RETROPERITONEUM: No ascites or suspicious fluid collection, extraluminal air, or suspiciou; s mass.; ABDOMINAL/PELVIC WALL: No hernia is identified.; OSSEOUS STRUCTURES/SOFT TISSUES: No suspicious osseous lesion, acute fracture, or soft tissue abnorma; lity.; IMPRESSION :; Posterior right interpole cortical defect with low attenuation noted which may represent scarring or; prior infarct, although in proper clinical setting focal pyelonephritis should also be considered.; ; Outcome: 03:37 Discharge ordered by Provider. mm11 03:48 Discharge Assessment: patient administered narcotics - no. The following High Risk kas2 Discharge criteria are identified: None. Discharged to home ambulatory. Condition: good Condition: stable Condition: improved. CT Study completed. Property :Personal belongings accompany Pt. 03:49 Patient left the ED. [facility] Signatures: Dispatcher [employer] EDMS Emerita Betancourt, Israel Kang, DO mm11 Hugh Roberts, MONOTYPE SETTER MONOTYPE SETTER dd6 Clare Barry, MONOTYPE SETTER MONOTYPE SETTER ar3 Julee Car Teresa, RN RN Noemí Crandall, Brass Bobbin Winder Unit Mandie Chavez Kim, RN RN kas2 Chart Complete MTDD
== END 2016-07-04 03:49 | disposition home or self-care (01) ==
LOC: M ED 21:50
DX: R11.10 Vomiting, unspecified (principal); R10.9 Unspecified abdominal pain; Z87.442 Personal history of urinary calculi; Z87.440 Personal history of urinary (tract) infections; Z96.0 Presence of urogenital implants; Z87.891 Personal history of nicotine dependence; Z88.1 Allergy status to other antibiotic agents; Z88.4 Allergy status to anesthetic agent
CPT/HCPCS: 36415; 74177; 80048; 80076; 81001; 82150; 83690; 84703; 85025; 87086; 96374; 99285; J1885; Q9967

== ENCOUNTER 2016-07-11 11:26 | Emergency (ER) | payer OTHER ==
--- NOTE | 2016-07-11 13:39 | EDDOCDS ---
Nurse's Notes [facility] Name: Ambika Pond Age: 21 yrs Sex: Female : 1995 Arrival Date: 07/11/2016 Time: 11:26 Bed I7 Private MD: No Pcp Diagnosis: Retention of urine, unspecified Presentation: 07/11 11:38 Presenting complaint: Patient states: ''Unable to Pee'' last void at 2 AM, ''I think I dwg have a UTI''. Adult Sepsis Screening: The patient does not have new or worsening altered mentation. Patient's respiratory rate is less than 22. Systolic blood pressure is greater than 100. Patient has a qSOFA score of 0- Negative Sepsis Screen. Suicide/Homicide risk assessment- the patient denies having any suicidal and/or homicidal ideations and does not present with any other emotional, behavioral or mental health complaints. Status: Patient is not a transaction advisory services manager or dependent. Transition of care: patient was not received from another setting of care. 11:38 Acuity: TYRONE Level 5 [facility] 11:38 Method Of Arrival: Walkin/Carried/Asstd [facility] Triage Assessment: 11:41 General: Appears in no apparent distress. Pain: Pain currently is 10 out of 10 on a [facility] pain scale. HIV screening NA for this visit Offered previously. 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 none - PMHx: Kidney stones; urethral stricture; UTI's, Frequent; - PSHx: Tonsillectomy; Nephrostomy tubes inserted; Kidney stents; Urethral stricture repair; - Social history: Smoking status: Patient states former smoker of tobacco. No barriers to communication noted, The patient speaks fluent Bulgarian. - Family history: Not pertinent. - : The pt / caregiver states he / she is not on anticoagulants. Home medication list is obtained from the patient. - Exposure Risk Screening:: None identified. Screenin:09 Screening information is obtained from the patient. Fall risk: No risks identified. jf3 Assistance ADL's: requires no assistance with activities of daily living. Abuse/DV Screen: The patient / caregiver reports he/she is: not in a situation that causes fear, pain or injury. Nutritional screening: No deficits noted. Advance Directives: Currently, there is no health care proxy. There is no active DNR order. home support is adequate. Assessment: 12:09 General: Appears in no apparent distress, uncomfortable, Behavior is cooperative. Pain: jf3 Location: suprapubic area. Neurological: Level of Consciousness is awake, alert, Oriented to person, place, time. Cardiovascular: Capillary refill < 3 seconds Chest pain is denied. Respiratory: Airway is patent Respiratory effort is even, unlabored, Respiratory pattern is regular, symmetrical. : Reports inability to void since this morning. Derm: Skin is pink, warm & dry. 12:58 Adult Sepsis Screening: The patient does not have new or worsening altered mentation. dsf Patient's respiratory rate is less than 22. Systolic blood pressure is greater than 100. Patient has a qSOFA score of 0- Negative Sepsis Screen. General: Appears in no apparent distress, Behavior is appropriate for age, cooperative. Pain: Location: RLQ Pain currently is 7 out of 10 on a pain scale. Neurological: Level of Consciousness is awake, alert. Cardiovascular: No deficits noted. Respiratory: No deficits noted. : Root in place to gravity drainage Urine is clear. Derm: Skin is pink, warm & dry. 13:37 General: Appears in no apparent distress, comfortable, Behavior is appropriate for age, dsf cooperative. Neurological: Level of Consciousness is awake, alert, Oriented to person, place, time. Cardiovascular: Capillary refill < 3 seconds. Respiratory: Airway is patent Respiratory effort is even, unlabored, Respiratory pattern is regular, symmetrical. : root switched to leg bag. Derm: Skin is pink, warm & dry. Vital Signs: 11:28 BP 168 / 101; Pulse 64; Resp 16; Temp 97.2; Pulse Ox 100% ; Weight 68.04 kg; Height 5 cmb ft. 9 in. (175.26 cm); Pain 0/10; 12:39 BP 122 / 88 RA (man/); jam1 13:31 BP 128 / 82; Pulse 70; Resp 18; Temp 97.4; Pulse Ox 99% ; Pain 0/10; jam1 11:28 Body Mass Index 22.15 (68.04 kg, 175.26 cm) cmb Vitals: 11:28 Log In Time: July 11, 2016 at 11:26. cmb ED Course: 11:27 Patient visited by Harika Plasencia. cmb 11:27 Patient moved to Waiting cmb 11:28 No Pcp is Private Physician. cmb 11:29 Patient moved to Pre RCE cmb 11:39 Triage Initiated dwg 11:50 Patient moved to Triage 2 mb9 11:51 Dannie Zazueta PA-C is PHCP. ar2 11:51 Crow Fitch MD is Attending Physician. ar2 11:51 Patient visited by Dannie Zazueta PA-C. ar2 11:52 Patient moved to 5 kcs 11:53 Patient moved to Triage 2 kcs 11:58 Patient moved to I srm 12:07 Bladder Scan completed Results: 725 mL. jf3 12:09 The patient / caregiver is instructed regarding the plan of care and ED course. jf3 12:10 Patient visited by Haseeb Martinez RN. jf3 12:12 Root cath inserted 16 Fr. Balloon inflated. To gravity drainage. Urine specimen dsf collected. returned clear yellow urine. 12:17 Urine Culture Sent. dsf 12:17 UA Sent. dsf 13:01 Patient visited by Geraldine Taylor RN. dsf 13:24 Andres Carson is Referral Physician. ar2 13:37 No IV's were initiated during this patient's visit. No procedures done that require dsf assistance. Point of Care Testing: Urine : 12:20 hCG Reading: Negative; Control Reading: Positive; dsf Ranges: Output: 12:48 Urine: 1400.00ml (Root); Total: 1400.00ml. dsf 13:37 Urine: 1300.00ml (Root); Total: 2700.00ml. dsf Order Results: Lab Order: UA; SPEC'M 07/11/16 12:16 Test: APPEARANCE, URINE; Value: CLEAR; Range: CLEAR; Status: F Test: COLOR, URINE; Value: STRAW; Range: YELLOW; Status: F Test: PH,URINE; Value: 6.0; Range: 5.0-9.0; Units: UNITS; Status: F Test: SPECIFIC GRAVITY URINE AUTO; Value: 1.006; Range: 1.002-1.035; Status: F Test: PROTEIN, URINE AUTO; Value: NEGATIVE; Range: NEGATIVE; Units: mg/dL; Status: F Test: GLUCOSE, URINE (UA) AUTO; Value: NEGATIVE; Range: NEGATIVE; Units: mg/dL; Status: F Test: KETONE, URINE AUTO; Value: NEGATIVE; Range: NEGATIVE; Units: mg/dL; Status: F Test: UROBILINOGEN, URINE AUTO; Value: 0.2; Range: 0.0-2.0; Units: mg/dL; Status: F Test: BILIRUBIN, URINE AUTO; Value: NEGATIVE; Range: NEGATIVE; Status: F Test: NITRITE, URINE AUTO; Value: NEGATIVE; Range: NEGATIVE; Status: F Test: LEUKOCYTE ESTERASE, URINE AUTO; Value: 1+; Range: NEGATIVE; Abnormal: Above high normal; Status: F Test: BLOOD, URINE BLOOD; Value: NEGATIVE; Range: NEGATIVE; Status: F Test: WBC, URINE AUTO; Value: 5; Range: 0-3; Abnormal: Above high normal; Units: /HPF; Status: F Test: RBC, URINE AUTO; Value: 1; Range: 0-3; Units: /HPF; Status: F Test: BACTERIA, URINE AUTO; Value: NEGATIVE; Range: NEGATIVE; Status: F Test: SQUAMOUS EPITHELIAL CELL UR AU; Value: 0; Range: 0-6; Units: /HPF; Status: F Test: MUCUS, URINE; Value: SMALL; Range: NEGATIVE; Status: F Test: HYALINE CAST, URINE AUTO; Value: 0; Range: 0-1; Units: /LPF; Status: F Outcome: 13:25 Discharge ordered by Provider. ar2 13:37 Discharge Assessment: Patient awake, alert and oriented x 3. No cognitive and/or dsf functional deficits noted. Patient verbalized understanding of disposition instructions. patient administered narcotics - no. The following High Risk Discharge criteria are identified: None. Discharged to home ambulatory. Condition: stable. Discharge instructions given to patient, Instructed on discharge instructions, follow up and referral plans. root catheter care. Demonstrated understanding of instructions, Pt was receptive of discharge instructions/ teaching. No special radiology studies were completed. Property sent home with patient. 13:38 Patient left the ED. dsf Signatures: Lucía Elizondo RN RN kcs Greene, Daniel, RN RN dwg Michelson, Staci, RN RN srm Cristine Groves, SISI GROUNDWATER MONITORING TECHNICIAN jam1 Dannie Zazueta PA-C PA-C ar2 Geraldine Taylor,RN RN annikaf Harika Plasencia Michael,RN RN mb9 Haseeb Martinez RN RN jf3 Corrections: (The following items were deleted from the chart) 12:10 12:06 General: jfJose jf3 MTDD
--- NOTE | 2016-07-11 13:39 | EDDOCDS ---
Physician Documentation [facility] Name: Ambika Pond Age: 21 yrs Sex: Female : 1995 Arrival Date: 07/11/2016 Time: 11:26 Bed I7 / 29 Private MD: No Pcp Disposition: 07/11/16 13:25 Discharged to Home/Self Care. Impression: Retention of urine, unspecified. - Condition is Stable. - Discharge Instructions: Acosta Catheter Care, Adult, Urinary Retention, Acute, Female. - Medication Reconciliation, Local Pharmacy Hours form. - Follow up: Andres Carson; When: Call to arrange an appointment; Reason: Recheck today's complaints, Continuance of care. - Problem is new. - Symptoms are unchanged. Historical: - Allergies: Ampicillin (Hives); Conscious sedation causes conversion disorder; - Home Meds: 1. none - PMHx: Kidney stones; urethral stricture; UTI's, Frequent; - PSHx: Tonsillectomy; Nephrostomy tubes inserted; Kidney stents; Urethral stricture repair; - Social history: Smoking status: Patient states former smoker of tobacco. No barriers to communication noted, The patient speaks fluent Argentine. - Family history: Not pertinent. - : The pt / caregiver states he / she is not on anticoagulants. Home medication list is obtained from the patient. - Exposure Risk Screening:: None identified. 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 9 in. (175.26 cm); Pain 0/10; 12:39 BP 122 / 88 RA (man/); jam1 13:31 BP 128 / 82; Pulse 70; Resp 18; Temp 97.4; Pulse Ox 99% ; Pain 0/10; jam1 11:28 Body Mass Index 22.15 (68.04 kg, 175.26 cm) cmb MDM: 11:56 UCG by Nursing ordered. ar2 11:56 Acosta ordered. ar2 11:56 Undress patient appropriately for examination ordered. ar2 11:57 UA Ordered. EDMS 11:57 Urine Culture Ordered. EDMS 12:33 Financial registration complete. lg 13:03 UA Reviewed. ar2 Point of Care Testing: Urine : 12:20 hCG Reading: Negative; Control Reading: Positive; dsf Ranges: Signatures: Dispatcher [employer] EDToño Ivan, RN RN dwg Starr Jones, Reg Reg lg Dannie Zazueta PA-C PA-C ar2 Geraldine Taylor RN RN dsf Haseeb Martinez RN RN jf3 MTDD
--- NOTE | 2016-07-13 14:39 | EDDOCDS ---
Physician Documentation [facility] Name: Ambika Pond Age: 21 yrs Sex: Female : 1995 Arrival Date: 07/11/2016 Time: 11:26 Bed I7 / 29 Private MD: No Pcp Disposition: 07/11/16 13:25 Discharged to Home/Self Care. Impression: Retention of urine, unspecified. - Condition is Stable. - Discharge Instructions: Acosta Catheter Care, Adult, Urinary Retention, Acute, Female. - Medication Reconciliation, Local Pharmacy Hours form. - Follow up: Andres Carson; When: Call to arrange an appointment; Reason: Recheck today's complaints, Continuance of care. - Problem is new. - Symptoms are unchanged. Historical: - Allergies: Ampicillin (Hives); Conscious sedation causes conversion disorder; - Home Meds: 1. none - PMHx: Kidney stones; urethral stricture; UTI's, Frequent; - PSHx: Tonsillectomy; Nephrostomy tubes inserted; Kidney stents; Urethral stricture repair; - Social history: Smoking status: Patient states former smoker of tobacco. No barriers to communication noted, The patient speaks fluent Belizean. - Family history: Not pertinent. - : The pt / caregiver states he / she is not on anticoagulants. Home medication list is obtained from the patient. - Exposure Risk Screening:: None identified. 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 9 in. (175.26 cm); Pain 0/10; 12:39 BP 122 / 88 RA (man/); jam1 13:31 BP 128 / 82; Pulse 70; Resp 18; Temp 97.4; Pulse Ox 99% ; Pain 0/10; jam1 11:28 Body Mass Index 22.15 (68.04 kg, 175.26 cm) cmb MDM: 11:56 UCG by Nursing ordered. ar2 11:56 Acosta ordered. ar2 11:56 Undress patient appropriately for examination ordered. ar2 11:57 UA Ordered. EDMS 11:57 Urine Culture Ordered. EDMS 12:33 Financial registration complete. lg 13:03 UA Reviewed. ar2 07/12 10:18 T-Sheet-- Draft Copy was scanned into [email or web address] and attached to record. david Point of Care Testing: Urine : 07/11 12:20 hCG Reading: Negative; Control Reading: Positive; dsf Ranges: Signatures: Dispatcher [employer] Toño Diego, RN RN dwg Emerita Betancourt, Reg Reg gb Starr Jones, Reg Reg lg Dannie Zazueta PA-C PA-C ar2 Geraldine TaylorRN RN dsf Haseeb Martinez,JAMES RN jf3 The chart was reviewed and I authenticate all verbal orders and agree with the evaluation and treatment provided.Attachments: 07/12 10:18 T-Sheet-- Draft Copy gb Chart Complete MTDD
--- NOTE | 2016-07-13 14:39 | EDDOCDS ---
Nurse's Notes [facility] Name: Ambika Pond Age: 21 yrs Sex: Female : 1995 Arrival Date: 07/11/2016 Time: 11:26 Bed I7 Private MD: No Pcp Diagnosis: Retention of urine, unspecified Presentation: 07/11 11:38 Presenting complaint: Patient states: ''Unable to Pee'' last void at 2 AM, ''I think I dwg have a UTI''. Adult Sepsis Screening: The patient does not have new or worsening altered mentation. Patient's respiratory rate is less than 22. Systolic blood pressure is greater than 100. Patient has a qSOFA score of 0- Negative Sepsis Screen. Suicide/Homicide risk assessment- the patient denies having any suicidal and/or homicidal ideations and does not present with any other emotional, behavioral or mental health complaints. Status: Patient is not a fitness services manager or dependent. Transition of care: patient was not received from another setting of care. 11:38 Acuity: TYRONE Level 5 [facility] 11:38 Method Of Arrival: Walkin/Carried/Asstd [facility] Triage Assessment: 11:41 General: Appears in no apparent distress. Pain: Pain currently is 10 out of 10 on a [facility] pain scale. HIV screening NA for this visit Offered previously. NEGATIVE ASSEMBLER: 11:41 LMP 06/21/2016 [facility] Historical: - Allergies: Ampicillin (Hives); Conscious sedation causes conversion disorder; - Home Meds: 1. none - PMHx: Kidney stones; urethral stricture; UTI's, Frequent; - PSHx: Tonsillectomy; Nephrostomy tubes inserted; Kidney stents; Urethral stricture repair; - Social history: Smoking status: Patient states former smoker of tobacco. No barriers to communication noted, The patient speaks fluent Yi. - Family history: Not pertinent. - : The pt / caregiver states he / she is not on anticoagulants. Home medication list is obtained from the patient. - Exposure Risk Screening:: None identified. Screenin:09 Screening information is obtained from the patient. Fall risk: No risks identified. jf3 Assistance ADL's: requires no assistance with activities of daily living. Abuse/DV Screen: The patient / caregiver reports he/she is: not in a situation that causes fear, pain or injury. Nutritional screening: No deficits noted. Advance Directives: Currently, there is no health care proxy. There is no active DNR order. home support is adequate. Assessment: 12:09 General: Appears in no apparent distress, uncomfortable, Behavior is cooperative. Pain: jf3 Location: suprapubic area. Neurological: Level of Consciousness is awake, alert, Oriented to person, place, time. Cardiovascular: Capillary refill < 3 seconds Chest pain is denied. Respiratory: Airway is patent Respiratory effort is even, unlabored, Respiratory pattern is regular, symmetrical. : Reports inability to void since this morning. Derm: Skin is pink, warm & dry. 12:58 Adult Sepsis Screening: The patient does not have new or worsening altered mentation. dsf Patient's respiratory rate is less than 22. Systolic blood pressure is greater than 100. Patient has a qSOFA score of 0- Negative Sepsis Screen. General: Appears in no apparent distress, Behavior is appropriate for age, cooperative. Pain: Location: RLQ Pain currently is 7 out of 10 on a pain scale. Neurological: Level of Consciousness is awake, alert. Cardiovascular: No deficits noted. Respiratory: No deficits noted. : Root in place to gravity drainage Urine is clear. Derm: Skin is pink, warm & dry. 13:37 General: Appears in no apparent distress, comfortable, Behavior is appropriate for age, dsf cooperative. Neurological: Level of Consciousness is awake, alert, Oriented to person, place, time. Cardiovascular: Capillary refill < 3 seconds. Respiratory: Airway is patent Respiratory effort is even, unlabored, Respiratory pattern is regular, symmetrical. : root switched to leg bag. Derm: Skin is pink, warm & dry. Vital Signs: 11:28 BP 168 / 101; Pulse 64; Resp 16; Temp 97.2; Pulse Ox 100% ; Weight 68.04 kg; Height 5 cmb ft. 9 in. (175.26 cm); Pain 0/10; 12:39 BP 122 / 88 RA (man/); jam1 13:31 BP 128 / 82; Pulse 70; Resp 18; Temp 97.4; Pulse Ox 99% ; Pain 0/10; jam1 11:28 Body Mass Index 22.15 (68.04 kg, 175.26 cm) cmb Vitals: 11:28 Log In Time: July 11, 2016 at 11:26. cmb ED Course: 11:27 Patient visited by Harika Plasencia. cmb 11:27 Patient moved to Waiting cmb 11:28 No Pcp is Private Physician. cmb 11:29 Patient moved to Pre RCE cmb 11:39 Triage Initiated dwg 11:50 Patient moved to Triage 2 mb9 11:51 Dannie Zazueta PA-C is PHCP. ar2 11:51 Crow Fitch MD is Attending Physician. ar2 11:51 Patient visited by Dannie Zazueta PA-C. ar2 11:52 Patient moved to 5 kcs 11:53 Patient moved to Triage 2 kcs 11:58 Patient moved to I7 / srm 12:07 Bladder Scan completed Results: 725 mL. jf3 12:09 The patient / caregiver is instructed regarding the plan of care and ED course. jf3 12:10 Patient visited by Haseeb Martinez RN. jf3 12:12 Root cath inserted 16 Fr. Balloon inflated. To gravity drainage. Urine specimen dsf collected. returned clear yellow urine. 12:17 Urine Culture Sent. dsf 12:17 UA Sent. dsf 13:01 Patient visited by Geraldine Taylor RN. dsf 13:24 Andres Carson is Referral Physician. ar2 13:37 No IV's were initiated during this patient's visit. No procedures done that require dsf assistance. 07/12 10:18 T-Sheet-- Draft Copy was scanned into [employer] and attached to record. Point of Care Testing: Urine : 07/11 12:20 hCG Reading: Negative; Control Reading: Positive; dsf Ranges: Output: 12:48 Urine: 1400.00ml (Root); Total: 1400.00ml. dsf 13:37 Urine: 1300.00ml (Root); Total: 2700.00ml. dsf Order Results: Lab Order: UA; SPEC'M 07/11/16 12:16 Test: APPEARANCE, URINE; Value: CLEAR; Range: CLEAR; Status: F Test: COLOR, URINE; Value: STRAW; Range: YELLOW; Status: F Test: PH,URINE; Value: 6.0; Range: 5.0-9.0; Units: UNITS; Status: F Test: SPECIFIC GRAVITY URINE AUTO; Value: 1.006; Range: 1.002-1.035; Status: F Test: PROTEIN, URINE AUTO; Value: NEGATIVE; Range: NEGATIVE; Units: mg/dL; Status: F Test: GLUCOSE, URINE (UA) AUTO; Value: NEGATIVE; Range: NEGATIVE; Units: mg/dL; Status: F Test: KETONE, URINE AUTO; Value: NEGATIVE; Range: NEGATIVE; Units: mg/dL; Status: F Test: UROBILINOGEN, URINE AUTO; Value: 0.2; Range: 0.0-2.0; Units: mg/dL; Status: F Test: BILIRUBIN, URINE AUTO; Value: NEGATIVE; Range: NEGATIVE; Status: F Test: NITRITE, URINE AUTO; Value: NEGATIVE; Range: NEGATIVE; Status: F Test: LEUKOCYTE ESTERASE, URINE AUTO; Value: 1+; Range: NEGATIVE; Abnormal: Above high normal; Status: F Test: BLOOD, URINE BLOOD; Value: NEGATIVE; Range: NEGATIVE; Status: F Test: WBC, URINE AUTO; Value: 5; Range: 0-3; Abnormal: Above high normal; Units: /HPF; Status: F Test: RBC, URINE AUTO; Value: 1; Range: 0-3; Units: /HPF; Status: F Test: BACTERIA, URINE AUTO; Value: NEGATIVE; Range: NEGATIVE; Status: F Test: SQUAMOUS EPITHELIAL CELL UR AU; Value: 0; Range: 0-6; Units: /HPF; Status: F Test: MUCUS, URINE; Value: SMALL; Range: NEGATIVE; Status: F Test: HYALINE CAST, URINE AUTO; Value: 0; Range: 0-1; Units: /LPF; Status: F Lab Order: Urine Culture; SPEC'M 07/11/16 12:16 Test: URINE CULTURE; Value: ORGANISM 1: ENTEROCOCCUS FAECALIS; Status: F Test: URINE CULTURE; Value: ENTEROCOCCUS FAECALIS; Status: F Test: URINE CULTURE; Value: COLONY COUNT CFU/ml >100,000; Status: F Test: URINE CULTURE; Value: GRAM POS SENSI - VITEK 67; Status: F Test: URINE CULTURE; Value: Method: VIT2; Status: F Test: URINE CULTURE; Value: TETRACYCLINE >=16 R; Status: F Test: URINE CULTURE; Value: PENICILLIN G 1 S; Status: F Test: URINE CULTURE; Value: AMPICILLIN <=2 S; Status: F Test: URINE CULTURE; Value: ERYTHROMYCIN 2 I; Status: F Test: URINE CULTURE; Value: GENTAMICIN 500 S; Status: F Test: URINE CULTURE; Value: NITROFURANTOIN <=16 S; Status: F Test: URINE CULTURE; Value: LEVOFLOXACIN 0.5 S; Status: F Test: URINE CULTURE; Value: CIPROFLOXACIN <=0.5 S; Status: F Test: URINE CULTURE; Value: VANCOMYCIN 1 S; Status: F Outcome: 13:25 Discharge ordered by Provider. ar2 13:37 Discharge Assessment: Patient awake, alert and oriented x 3. No cognitive and/or dsf functional deficits noted. Patient verbalized understanding of disposition instructions. patient administered narcotics - no. The following High Risk Discharge criteria are identified: None. Discharged to home ambulatory. Condition: stable. Discharge instructions given to patient, Instructed on discharge instructions, follow up and referral plans. root catheter care. Demonstrated understanding of instructions, Pt was receptive of discharge instructions/ teaching. No special radiology studies were completed. Property sent home with patient. 13:38 Patient left the ED. dsf Signatures: Lucía Elizondo RN RN Toño Spivey RN RN dwg Michelson, Staci, RN RN srm Cristine Groves, MANAGER CRITICAL CARE MANAGER CRITICAL CARE jam1 Emerita Betancourt, Reg Reg gb Dannie Zazueta PA-C PA-Yobani ar2 Geraldine Taylor RN RN dsf Harika Plasencia MichaelRN RN mb9 Haseeb Martinez,JAMES RN jf3 Corrections: (The following items were deleted from the chart) 12:10 12:06 General: tianna jf3 Chart Complete MTDD
--- NOTE | 2016-07-13 14:39 | EDDOCDS ---
Physician Documentation [facility] Name: Ambika Pond Age: 21 yrs Sex: Female : 1995 Arrival Date: 07/11/2016 Time: 11:26 Bed I7 / 29 Private MD: No Pcp Disposition: 07/11/16 13:25 Discharged to Home/Self Care. Impression: Retention of urine, unspecified. - Condition is Stable. - Discharge Instructions: Acosta Catheter Care, Adult, Urinary Retention, Acute, Female. - Medication Reconciliation, Local Pharmacy Hours form. - Follow up: Andres Carson; When: Call to arrange an appointment; Reason: Recheck today's complaints, Continuance of care. - Problem is new. - Symptoms are unchanged. Historical: - Allergies: Ampicillin (Hives); Conscious sedation causes conversion disorder; - Home Meds: 1. none - PMHx: Kidney stones; urethral stricture; UTI's, Frequent; - PSHx: Tonsillectomy; Nephrostomy tubes inserted; Kidney stents; Urethral stricture repair; - Social history: Smoking status: Patient states former smoker of tobacco. No barriers to communication noted, The patient speaks fluent Angolan. - Family history: Not pertinent. - : The pt / caregiver states he / she is not on anticoagulants. Home medication list is obtained from the patient. - Exposure Risk Screening:: None identified. 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 9 in. (175.26 cm); Pain 0/10; 12:39 BP 122 / 88 RA (man/); jam1 13:31 BP 128 / 82; Pulse 70; Resp 18; Temp 97.4; Pulse Ox 99% ; Pain 0/10; jam1 11:28 Body Mass Index 22.15 (68.04 kg, 175.26 cm) cmb MDM: 11:56 UCG by Nursing ordered. ar2 11:56 Acosta ordered. ar2 11:56 Undress patient appropriately for examination ordered. ar2 11:57 UA Ordered. EDMS 11:57 Urine Culture Ordered. EDMS 12:33 Financial registration complete. lg 13:03 UA Reviewed. ar2 07/12 10:18 T-Sheet-- Draft Copy was scanned into [employer] and attached to record. david Point of Care Testing: Urine : 07/11 12:20 hCG Reading: Negative; Control Reading: Positive; dsf Ranges: Signatures: Dispatcher [employer] Toño Diego, RN RN dwg Emerita Betancourt, Reg Reg gb Starr Jones, Reg Reg lg Dannie Zazueta PA-C PA-C ar2 Geraldine TaylorRN RN dsf Haseeb Martinez,JAMES RN jf3 The chart was reviewed and I authenticate all verbal orders and agree with the evaluation and treatment provided.Attachments: 07/12 10:18 T-Sheet-- Draft Copy gb Chart Complete MTDD
--- NOTE | 2016-07-14 12:14 | EDDOCDS ---
Nurse's Notes [facility] Name: Ambika Pond Age: 21 yrs Sex: Female : 1995 Arrival Date: 07/11/2016 Time: 11:26 Bed I7 Private MD: No Pcp Diagnosis: Retention of urine, unspecified Presentation: 07/11 11:38 Presenting complaint: Patient states: ''Unable to Pee'' last void at 2 AM, ''I think I dwg have a UTI''. Adult Sepsis Screening: The patient does not have new or worsening altered mentation. Patient's respiratory rate is less than 22. Systolic blood pressure is greater than 100. Patient has a qSOFA score of 0- Negative Sepsis Screen. Suicide/Homicide risk assessment- the patient denies having any suicidal and/or homicidal ideations and does not present with any other emotional, behavioral or mental health complaints. Status: Patient is not a community service coordinator or dependent. Transition of care: patient was not received from another setting of care. 11:38 Acuity: TYRONE Level 5 [facility] 11:38 Method Of Arrival: Walkin/Carried/[facility] Triage Assessment: 11:41 General: Appears in no apparent distress. Pain: Pain currently is 10 out of 10 on a [facility] pain scale. HIV screening NA for this visit Offered previously. 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 none - PMHx: Kidney stones; urethral stricture; UTI's, Frequent; - PSHx: Tonsillectomy; Nephrostomy tubes inserted; Kidney stents; Urethral stricture repair; - Social history: Smoking status: Patient states former smoker of tobacco. No barriers to communication noted, The patient speaks fluent Syriac. - Family history: Not pertinent. - : The pt / caregiver states he / she is not on anticoagulants. Home medication list is obtained from the patient. - Exposure Risk Screening:: None identified. Screenin:09 Screening information is obtained from the patient. Fall risk: No risks identified. jf3 Assistance ADL's: requires no assistance with activities of daily living. Abuse/DV Screen: The patient / caregiver reports he/she is: not in a situation that causes fear, pain or injury. Nutritional screening: No deficits noted. Advance Directives: Currently, there is no health care proxy. There is no active DNR order. home support is adequate. Assessment: 12:09 General: Appears in no apparent distress, uncomfortable, Behavior is cooperative. Pain: jf3 Location: suprapubic area. Neurological: Level of Consciousness is awake, alert, Oriented to person, place, time. Cardiovascular: Capillary refill < 3 seconds Chest pain is denied. Respiratory: Airway is patent Respiratory effort is even, unlabored, Respiratory pattern is regular, symmetrical. : Reports inability to void since this morning. Derm: Skin is pink, warm & dry. 12:58 Adult Sepsis Screening: The patient does not have new or worsening altered mentation. dsf Patient's respiratory rate is less than 22. Systolic blood pressure is greater than 100. Patient has a qSOFA score of 0- Negative Sepsis Screen. General: Appears in no apparent distress, Behavior is appropriate for age, cooperative. Pain: Location: RLQ Pain currently is 7 out of 10 on a pain scale. Neurological: Level of Consciousness is awake, alert. Cardiovascular: No deficits noted. Respiratory: No deficits noted. : Root in place to gravity drainage Urine is clear. Derm: Skin is pink, warm & dry. 13:37 General: Appears in no apparent distress, comfortable, Behavior is appropriate for age, dsf cooperative. Neurological: Level of Consciousness is awake, alert, Oriented to person, place, time. Cardiovascular: Capillary refill < 3 seconds. Respiratory: Airway is patent Respiratory effort is even, unlabored, Respiratory pattern is regular, symmetrical. : root switched to leg bag. Derm: Skin is pink, warm & dry. Vital Signs: 11:28 BP 168 / 101; Pulse 64; Resp 16; Temp 97.2; Pulse Ox 100% ; Weight 68.04 kg; Height 5 cmb ft. 9 in. (175.26 cm); Pain 0/10; 12:39 BP 122 / 88 RA (man/); jam1 13:31 BP 128 / 82; Pulse 70; Resp 18; Temp 97.4; Pulse Ox 99% ; Pain 0/10; jam1 11:28 Body Mass Index 22.15 (68.04 kg, 175.26 cm) cmb Vitals: 11:28 Log In Time: July 11, 2016 at 11:26. cmb ED Course: 11:27 Patient visited by Harika Plasencia. cmb 11:27 Patient moved to Waiting cmb 11:28 No Pcp is Private Physician. cmb 11:29 Patient moved to Pre RCE cmb 11:39 Triage Initiated dwg 11:50 Patient moved to Triage 2 mb9 11:51 Dannie Zazueta PA-C is PHCP. ar2 11:51 Crow Fitch MD is Attending Physician. ar2 11:51 Patient visited by Dannie Zazueta PA-C. ar2 11:52 Patient moved to 5 kcs 11:53 Patient moved to Triage 2 kcs 11:58 Patient moved to I7 / srm 12:07 Bladder Scan completed Results: 725 mL. jf3 12:09 The patient / caregiver is instructed regarding the plan of care and ED course. jf3 12:10 Patient visited by Haseeb Martinez RN. jf3 12:12 Root cath inserted 16 Fr. Balloon inflated. To gravity drainage. Urine specimen dsf collected. returned clear yellow urine. 12:17 Urine Culture Sent. dsf 12:17 UA Sent. dsf 13:01 Patient visited by Geraldine Taylor RN. dsf 13:24 Andres Carson is Referral Physician. ar2 13:37 No IV's were initiated during this patient's visit. No procedures done that require dsf assistance. 07/12 10:18 T-Sheet-- Draft Copy was scanned into [employer] and attached to record. Point of Care Testing: Urine : 07/11 12:20 hCG Reading: Negative; Control Reading: Positive; dsf Ranges: Output: 12:48 Urine: 1400.00ml (Root); Total: 1400.00ml. dsf 13:37 Urine: 1300.00ml (Root); Total: 2700.00ml. dsf Order Results: Lab Order: UA; SPEC'M 07/11/16 12:16 Test: APPEARANCE, URINE; Value: CLEAR; Range: CLEAR; Status: F Test: COLOR, URINE; Value: STRAW; Range: YELLOW; Status: F Test: PH,URINE; Value: 6.0; Range: 5.0-9.0; Units: UNITS; Status: F Test: SPECIFIC GRAVITY URINE AUTO; Value: 1.006; Range: 1.002-1.035; Status: F Test: PROTEIN, URINE AUTO; Value: NEGATIVE; Range: NEGATIVE; Units: mg/dL; Status: F Test: GLUCOSE, URINE (UA) AUTO; Value: NEGATIVE; Range: NEGATIVE; Units: mg/dL; Status: F Test: KETONE, URINE AUTO; Value: NEGATIVE; Range: NEGATIVE; Units: mg/dL; Status: F Test: UROBILINOGEN, URINE AUTO; Value: 0.2; Range: 0.0-2.0; Units: mg/dL; Status: F Test: BILIRUBIN, URINE AUTO; Value: NEGATIVE; Range: NEGATIVE; Status: F Test: NITRITE, URINE AUTO; Value: NEGATIVE; Range: NEGATIVE; Status: F Test: LEUKOCYTE ESTERASE, URINE AUTO; Value: 1+; Range: NEGATIVE; Abnormal: Above high normal; Status: F Test: BLOOD, URINE BLOOD; Value: NEGATIVE; Range: NEGATIVE; Status: F Test: WBC, URINE AUTO; Value: 5; Range: 0-3; Abnormal: Above high normal; Units: /HPF; Status: F Test: RBC, URINE AUTO; Value: 1; Range: 0-3; Units: /HPF; Status: F Test: BACTERIA, URINE AUTO; Value: NEGATIVE; Range: NEGATIVE; Status: F Test: SQUAMOUS EPITHELIAL CELL UR AU; Value: 0; Range: 0-6; Units: /HPF; Status: F Test: MUCUS, URINE; Value: SMALL; Range: NEGATIVE; Status: F Test: HYALINE CAST, URINE AUTO; Value: 0; Range: 0-1; Units: /LPF; Status: F Lab Order: Urine Culture; SPEC'M 07/11/16 12:16 Test: URINE CULTURE; Value: ORGANISM 1: ENTEROCOCCUS FAECALIS; Status: F Test: URINE CULTURE; Value: ENTEROCOCCUS FAECALIS; Status: F Test: URINE CULTURE; Value: COLONY COUNT CFU/ml >100,000; Status: F Test: URINE CULTURE; Value: GRAM POS SENSI - VITEK 67; Status: F Test: URINE CULTURE; Value: Method: VIT2; Status: F Test: URINE CULTURE; Value: TETRACYCLINE >=16 R; Status: F Test: URINE CULTURE; Value: PENICILLIN G 1 S; Status: F Test: URINE CULTURE; Value: AMPICILLIN <=2 S; Status: F Test: URINE CULTURE; Value: ERYTHROMYCIN 2 I; Status: F Test: URINE CULTURE; Value: GENTAMICIN 500 S; Status: F Test: URINE CULTURE; Value: NITROFURANTOIN <=16 S; Status: F Test: URINE CULTURE; Value: LEVOFLOXACIN 0.5 S; Status: F Test: URINE CULTURE; Value: CIPROFLOXACIN <=0.5 S; Status: F Test: URINE CULTURE; Value: VANCOMYCIN 1 S; Status: F Outcome: 13:25 Discharge ordered by Provider. ar2 13:37 Discharge Assessment: Patient awake, alert and oriented x 3. No cognitive and/or dsf functional deficits noted. Patient verbalized understanding of disposition instructions. patient administered narcotics - no. The following High Risk Discharge criteria are identified: None. Discharged to home ambulatory. Condition: stable. Discharge instructions given to patient, Instructed on discharge instructions, follow up and referral plans. root catheter care. Demonstrated understanding of instructions, Pt was receptive of discharge instructions/ teaching. No special radiology studies were completed. Property sent home with patient. 13:38 Patient left the ED. dsf Signatures: Lucía Elizondo RN RN Toño Spivey RN RN dwg Michelson, Staci, RN RN srm Cristine Groves, HOT STICK MAN HOT STICK MAN jam1 Emerita Betancourt, Reg Reg gb Dannie Zazueta PA-C PA-Yobani ar2 Geraldine Taylor RN RN dsf Harika Plasencia MichaelRN RN mb9 Haseeb Martinez,JAMES RN jf3 Corrections: (The following items were deleted from the chart) 12:10 12:06 General: tianna jf3 Chart Complete MTDD
--- NOTE | 2016-07-14 12:14 | EDDOCDS ---
Physician Documentation [facility] Name: Ambika Pond Age: 21 yrs Sex: Female : 1995 Arrival Date: 07/11/2016 Time: 11:26 Bed I7 / 29 Private MD: No Pcp Disposition: 07/11/16 13:25 Discharged to Home/Self Care. Impression: Retention of urine, unspecified. - Condition is Stable. - Discharge Instructions: Acosta Catheter Care, Adult, Urinary Retention, Acute, Female. - Medication Reconciliation, Local Pharmacy Hours form. - Follow up: Andres Carson; When: Call to arrange an appointment; Reason: Recheck today's complaints, Continuance of care. - Problem is new. - Symptoms are unchanged. Historical: - Allergies: Ampicillin (Hives); Conscious sedation causes conversion disorder; - Home Meds: 1. none - PMHx: Kidney stones; urethral stricture; UTI's, Frequent; - PSHx: Tonsillectomy; Nephrostomy tubes inserted; Kidney stents; Urethral stricture repair; - Social history: Smoking status: Patient states former smoker of tobacco. No barriers to communication noted, The patient speaks fluent Albanian. - Family history: Not pertinent. - : The pt / caregiver states he / she is not on anticoagulants. Home medication list is obtained from the patient. - Exposure Risk Screening:: None identified. 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 9 in. (175.26 cm); Pain 0/10; 12:39 BP 122 / 88 RA (man/); jam1 13:31 BP 128 / 82; Pulse 70; Resp 18; Temp 97.4; Pulse Ox 99% ; Pain 0/10; jam1 11:28 Body Mass Index 22.15 (68.04 kg, 175.26 cm) cmb MDM: 11:56 UCG by Nursing ordered. ar2 11:56 Acosta ordered. ar2 11:56 Undress patient appropriately for examination ordered. ar2 11:57 UA Ordered. EDMS 11:57 Urine Culture Ordered. EDMS 12:33 Financial registration complete. lg 13:03 UA Reviewed. ar2 07/12 10:18 T-Sheet-- Draft Copy was scanned into [employer] and attached to record. david Point of Care Testing: Urine : 07/11 12:20 hCG Reading: Negative; Control Reading: Positive; dsf Ranges: Signatures: Dispatcher [employer] Toño Diego, RN RN dwg Emerita Betancourt, Reg Reg gb Starr Jones, Reg Reg lg Dannie Zazueta PA-C PA-C ar2 Geraldine TaylorRN RN dsf Haseeb Martinez,JAMES RN jf3 The chart was reviewed and I authenticate all verbal orders and agree with the evaluation and treatment provided.Attachments: 07/12 10:18 T-Sheet-- Draft Copy gb Chart Complete MTDD
--- NOTE | 2016-07-14 12:14 | EDDOCDS ---
Physician Documentation [facility] Name: Ambika Pond Age: 21 yrs Sex: Female : 1995 Arrival Date: 07/11/2016 Time: 11:26 Bed I7 / 29 Private MD: No Pcp Disposition: 07/11/16 13:25 Discharged to Home/Self Care. Impression: Retention of urine, unspecified. - Condition is Stable. - Discharge Instructions: Acosta Catheter Care, Adult, Urinary Retention, Acute, Female. - Medication Reconciliation, Local Pharmacy Hours form. - Follow up: Andres Carson; When: Call to arrange an appointment; Reason: Recheck today's complaints, Continuance of care. - Problem is new. - Symptoms are unchanged. Historical: - Allergies: Ampicillin (Hives); Conscious sedation causes conversion disorder; - Home Meds: 1. none - PMHx: Kidney stones; urethral stricture; UTI's, Frequent; - PSHx: Tonsillectomy; Nephrostomy tubes inserted; Kidney stents; Urethral stricture repair; - Social history: Smoking status: Patient states former smoker of tobacco. No barriers to communication noted, The patient speaks fluent Zimbabwean. - Family history: Not pertinent. - : The pt / caregiver states he / she is not on anticoagulants. Home medication list is obtained from the patient. - Exposure Risk Screening:: None identified. 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 9 in. (175.26 cm); Pain 0/10; 12:39 BP 122 / 88 RA (man/); jam1 13:31 BP 128 / 82; Pulse 70; Resp 18; Temp 97.4; Pulse Ox 99% ; Pain 0/10; jam1 11:28 Body Mass Index 22.15 (68.04 kg, 175.26 cm) cmb MDM: 11:56 UCG by Nursing ordered. ar2 11:56 Acosta ordered. ar2 11:56 Undress patient appropriately for examination ordered. ar2 11:57 UA Ordered. EDMS 11:57 Urine Culture Ordered. EDMS 12:33 Financial registration complete. lg 13:03 UA Reviewed. ar2 07/12 10:18 T-Sheet-- Draft Copy was scanned into [employer] and attached to record. david Point of Care Testing: Urine : 07/11 12:20 hCG Reading: Negative; Control Reading: Positive; dsf Ranges: Signatures: Dispatcher [employer] Toño Diego, RN RN dwg Emerita Betancourt, Reg Reg gb Starr Jones, Reg Reg lg Dannie Zazueta PA-C PA-C ar2 Geraldine TaylorRN RN dsf Haseeb Martinez,JAMES RN jf3 The chart was reviewed and I authenticate all verbal orders and agree with the evaluation and treatment provided.Attachments: 07/12 10:18 T-Sheet-- Draft Copy gb Chart Complete MTDD
== END 2016-07-11 13:38 | disposition home or self-care (01) ==
LOC: M ED 11:26
DX: R33.9 Retention of urine, unspecified (principal); Z87.440 Personal history of urinary (tract) infections; Z93.6 Other artificial openings of urinary tract status; Z96.0 Presence of urogenital implants; Z87.891 Personal history of nicotine dependence; Z88.0 Allergy status to penicillin; Z88.8 Allergy status to other drugs, medicaments and biological substances

== ENCOUNTER → 2016-08-07 | Outpatient (CLI) | payer OTHER ==
[2016-08-07 21:27] LABS: BASO % 0.2 % (0.0-1.0); EOS # 0.1 K/mm3 (0.0-0.50); EOS % 1.4 % (0.0-3.0); LARGE UNSTAINED CELL # 0.2 K/mm3 (0.0-0.4); LARGE UNSTAINED CELL % 2.1 % (0.0-4.0); LYMPH # 1.7 K/mm3 (1.5-6.5); LYMPH % 23.6 % (24.0-44.0); MEAN CORPUSCULAR HEMOGLOBIN 27.7 pg (27.0-33.0); MEAN CORPUSCULAR HGB CONC 31.4 g/dl (32.0-36.5); MEAN CORPUSCULAR VOLUME 88.2 fl (80.0-96.0); MONO # 0.5 K/mm3 (0.0-0.8); MONO % 7.1 % (0.0-5.0); NEUTROPHILS # 4.8 K/mm3 (1.8-7.7); NEUTROPHILS % 65.5 % (36.0-66.0); PLATELET COUNT, AUTOMATED 237 k/mm3 (150-450); RED CELL DISTRIBUTION WIDTH 12.4 % (11.5-14.5); WHITE BLOOD COUNT 7.3 K/mm3 (4.0-10.0)
[2016-08-07 21:47] LABS: ANION GAP 7 MEQ/L (8-16); BLOOD UREA NITROGEN 11 MG/DL (7-18); CALCIUM LEVEL 8.7 MG/DL (8.5-10.1); CARBON DIOXIDE LEVEL 29 MEQ/L (21-32); CHLORIDE LEVEL 104 MEQ/L (98-107); CREATININE FOR GFR 0.75 MG/DL (0.55-1.02); GLOMERULAR FILTRATION RATE > 60.0 (>60); GLUCOSE, FASTING 71 MG/DL (70-105); PERCENT SATURATION 7.4 % (13.2-37.4); POTASSIUM SERUM 3.7 MEQ/L (3.5-5.1); SODIUM LEVEL 140 MEQ/L (136-145); TOTAL IRON BINDING CAPACITY 489 UG/DL (250-450)
[2016-08-07 22:45] LABS: MICROSCOPIC INDICATED? MAN YES (NO)
[2016-08-07 22:49] LABS: MICROSCOPIC EXAM PERFORMED
[2016-08-07 22:51] LABS: HYALINE CAST, URINE NONE SEEN /lpf (0-1); RBC, URINE 0-1 /hpf (0-3); SQUAMOUS EPITHELIAL CELL URINE LARGE AMOUNT /hpf (SMALL AMT)
[2016-08-07 22:52] LABS: BACTERIA, URINE MOD AMOUNT
== END ==
LOC: M WUC 18:48
PROVIDERS: ATTEND Physician Assistant
DX: R30.0 Dysuria (principal); R50.9 Fever, unspecified

== ENCOUNTER → 2016-08-28 | Outpatient (REF) | payer OTHER ==
[~2016-08-28] MED LIST changes: +DICL75TA PO
== END ==
LOC: M LAB REF 16:41
PROVIDERS: ATTEND Physician Assistant
DX: N39.0 Urinary tract infection, site not specified (principal)

== ENCOUNTER 2016-09-01 14:08 | Emergency (ER) | payer OTHER ==
[~2016-09-01] VITALS: Ht 172.7 cm; Wt 72.6 kg
[~2016-09-01 14:08] MED LIST changes: -DICL75TA PO
[2016-09-01 15:17] LABS: CONTROL LINE UCG INT CTR LINE PRESENT
[2016-09-01 15:23] LABS: BASO % 0.5 % (0.0-1.0); EOS # 0.1 K/mm3 (0.0-0.50); EOS % 1.2 % (0.0-3.0); LARGE UNSTAINED CELL # 0.1 K/mm3 (0.0-0.4); LARGE UNSTAINED CELL % 1.7 % (0.0-4.0); LYMPH # 1.2 K/mm3 (1.5-6.5); LYMPH % 17.3 % (24.0-44.0); MEAN CORPUSCULAR HEMOGLOBIN 27.6 pg (27.0-33.0); MEAN CORPUSCULAR HGB CONC 32.2 g/dl (32.0-36.5); MEAN CORPUSCULAR VOLUME 85.7 fl (80.0-96.0); MONO # 0.4 K/mm3 (0.0-0.8); MONO % 6.3 % (0.0-5.0); PLATELET COUNT, AUTOMATED 307 k/mm3 (150-450); RED CELL DISTRIBUTION WIDTH 12.3 % (11.5-14.5); WHITE BLOOD COUNT 6.9 K/mm3 (4.0-10.0)
--- NOTE | 2016-09-01 15:32 | REP ---
Urinary tract sonogram: History: Right renal colic. Comparison: CT study of the abdomen and pelvis from July 04, 2016. Findings: Scanning at the level of the urinary bladder shows no abnormality. Renal cortical echogenicity pattern is normal bilaterally and contours are smooth. There is no evidence of hydronephrosis, cyst, mass, or calculus in either kidney. The right kidney measures 11.3 x 5.6 x 4.4 cm. Left renal dimensions are 11.4 x 5.5 x 5.8 cm. Impression: Normal urinary tract sonography. Signed by Bryan Cruz MD 09/01/2016 03:23 P
[2016-09-01 15:54] VITALS: BP 161/94
[2016-09-01 15:54] LABS: ALBUMIN 4.3 GM/DL (3.2-5.2); ALBUMIN/GLOBULIN RATIO 1.19 (1.00-1.93); ALKALINE PHOSPHATASE 91 U/L (45-117); ALT/SGPT 16 U/L (12-78); ANION GAP 8 MEQ/L (8-16); AST/SGOT 11 U/L (15-37); BILIRUBIN,DIRECT 0.1 MG/DL (0.0-0.2); BILIRUBIN,TOTAL 0.3 MG/DL (0.2-1.0); BLOOD UREA NITROGEN 14 MG/DL (7-18); CALCIUM LEVEL 8.7 MG/DL (8.5-10.1); CARBON DIOXIDE LEVEL 29 MEQ/L (21-32); CHLORIDE LEVEL 105 MEQ/L (98-107); CREATININE FOR GFR 0.73 MG/DL (0.55-1.02); GLOMERULAR FILTRATION RATE > 60.0 (>60); GLUCOSE, FASTING 79 MG/DL (70-105); SODIUM LEVEL 142 MEQ/L (136-145); TOTAL PROTEIN 7.9 GM/DL (6.4-8.2)
[2016-09-01] MEDS ORDERED: DICL75TA PO (16:06)
== END 2016-09-01 16:13 | disposition home or self-care (01) ==
LOC: M ED 14:39
DX: R10.9 Unspecified abdominal pain (principal); F17.200 Nicotine dependence, unspecified, uncomplicated; Z79.899 Other long term (current) drug therapy; Z88.8 Allergy status to other drugs, medicaments and biological substances

== ENCOUNTER → 2016-10-10 | Outpatient (CLI) | payer OTHER ==
[~2016-10-10] MED LIST changes: +BACT800T5 PO; +DICL75TA PO; +FUROSEMIDE 20 MG/2 ML VIAL (J1940) As Ordered ONE; +NORCOTAB PO
--- NOTE | 2016-10-10 15:12 | REP ---
Nuclear renal scintigraphy with differential flow and function and Lasix washout venography: History: Hydronephrosis. Comparison study is from January 04, 2015. Comparison CT study is from July 04, 2016. Technique: 8.8 mCi technetium 99m MAG3 is injected and posterior flow and excretory phase images are acquired. Renal cortical regions of interest are drawn and time activity curves are plotted for renal function analysis. 20 mg of intravenous Lasix is administered and post Lasix renography washout curves are acquired. Scintigraphic findings: Posterior flow images show symmetric perfusion of the renal beds. Excretory phase images show no evidence of intrarenal mass on either side. There is symmetric labeling of the intrarenal collecting system bilaterally. Intrarenal collecting system of the right kidney is more prominent than the left consistent with right-sided hydronephrosis. Differential renal function analysis is essentially normal with 56% of overall renal cortical counts coming from the left kidney and 44% from the right kidney. Time to peak activity is normal bilaterally at 2.0 minutes. Time to half max activity is normal on the left at 6.8 minutes and delayed on the right at 19.9 minutes. The time to half max activity previously was 11.1 minutes. Otherwise, the function analysis data are similar to the prior study. Post Lasix renography demonstrates prompt washout of the intrarenal collecting systems bilaterally. Time to half Lasix activity is 5.9 minutes on the left and 6.9 minutes on the right. This mitigates against ureteral obstruction. Impression: Mild right-sided hydronephrosis again seen without evidence of significant ureteral obstruction on post Lasix renography. Post Lasix renography washout curve is improved on the right compared to the prior study. Signed by Bryan Cruz MD 10/10/2016 03:42 P
== END ==
LOC: M RAD 12:40
PROVIDERS: ATTEND Urology
DX: N13.30 Unspecified hydronephrosis (principal)

== ENCOUNTER 2016-10-14 17:26 | Emergency (ER) | payer OTHER ==
[~2016-10-14] VITALS: Ht 172.7 cm; Wt 70.3 kg
[~2016-10-14 17:26] MED LIST changes: -BACT800T5 PO; -FUROSEMIDE 20 MG/2 ML VIAL (J1940) As Ordered ONE; -NORCOTAB PO
[2016-10-14 17:27] VITALS: BP 163/93
[2016-10-14] MEDS ORDERED: NORCOTAB PO (18:01)
== END 2016-10-14 18:21 | disposition home or self-care (01) ==
LOC: M ED 17:59
DX: K08.89 Other specified disorders of teeth and supporting structures (principal)

== ENCOUNTER 2016-10-16 01:15 | Emergency (ER) | payer OTHER ==
[~2016-10-16] VITALS: Ht 172.7 cm; Wt 70.3 kg
[~2016-10-16 01:15] MED LIST changes: +NORCOTAB PO
[2016-10-16 01:49] LABS: CONTROL LINE UCG INT CTR LINE PRESENT
[2016-10-16 01:52] LABS: BASO % 0.3 % (0.0-1.0); EOS # 0.2 K/mm3 (0.0-0.50); EOS % 2.6 % (0.0-3.0); LARGE UNSTAINED CELL # 0.1 K/mm3 (0.0-0.4); LARGE UNSTAINED CELL % 1.7 % (0.0-4.0); LYMPH % 30.2 % (24.0-44.0); MEAN CORPUSCULAR HEMOGLOBIN 29.7 pg (27.0-33.0); MEAN CORPUSCULAR HGB CONC 34.2 g/dl (32.0-36.5); MEAN CORPUSCULAR VOLUME 86.9 fl (80.0-96.0); MONO # 0.4 K/mm3 (0.0-0.8); MONO % 6.4 % (0.0-5.0); NEUTROPHILS # 3.9 K/mm3 (1.8-7.7); NEUTROPHILS % 58.7 % (36.0-66.0); PLATELET COUNT, AUTOMATED 208 k/mm3 (150-450); RED CELL DISTRIBUTION WIDTH 13.1 % (11.5-14.5); WHITE BLOOD COUNT 6.6 K/mm3 (4.0-10.0)
[2016-10-16 02:08] LABS: ALBUMIN 3.9 GM/DL (3.2-5.2); ALBUMIN/GLOBULIN RATIO 1.03 (1.00-1.93); ALKALINE PHOSPHATASE 77 U/L (45-117); ALT/SGPT 25 U/L (12-78); ANION GAP 6 MEQ/L (8-16); AST/SGOT 20 U/L (15-37); BILIRUBIN,DIRECT < 0.1 MG/DL (0.0-0.2); BILIRUBIN,TOTAL 0.2 MG/DL (0.2-1.0); BLOOD UREA NITROGEN 10 MG/DL (7-18); CALCIUM LEVEL 8.1 MG/DL (8.5-10.1); CARBON DIOXIDE LEVEL 29 MEQ/L (21-32); CHLORIDE LEVEL 107 MEQ/L (98-107); GLOMERULAR FILTRATION RATE > 60.0 (>60); GLUCOSE, FASTING 89 MG/DL (70-105); POTASSIUM SERUM 3.6 MEQ/L (3.5-5.1); SODIUM LEVEL 142 MEQ/L (136-145); TOTAL PROTEIN 7.7 GM/DL (6.4-8.2)
[2016-10-16] MEDS ORDERED: MORPHINE 2 MG/ML 1ML SYRINGE IV ONE (02:45)
[2016-10-16] MEDS ORDERED: BACTRIM 160MG/800MG DS TAB PO ONE (02:45)
[2016-10-16] MEDS ORDERED: NS 1,000 ML IV ONE (03:00)
--- NOTE | 2016-10-16 03:50 | REPUSA ---
CLINICAL HISTORY: Abdominal pain. TECHNIQUE: Multiple axial, sagittal and coronal CT images were obtained through the abdomen and pelvi s without administration of oral or IV contrast material. COMMENTS: Comparison is made to the prior exam performed on 07/04/2016. 4 mm obstructing stone of the right ureterovesical junction. Mild right hydroureteronephrosis. Findin gs were not present on prior exam. 3 mm nonobstructing stone of the lower calyceal group in the left kidney. The liver is of uniform attenuation without mass or defect. There is no intra or extrahepatic biliary ductal dilatation. The spleen is normal. The gallbladder is within normal limits. The pancreas is of normal contour and attenuation characteristics. There is no evidence of adrenal mass. There is no evidence for appendicitis. There is no bowel wall thickening. No evidence for small or la rge bowel obstruction. There is no evidence of abdominal ascites or lymphadenopathy. There is no evidence of intrinsic or extrinsic bladder mass. There is no pelvic ascites or lymphadeno jake. Unchanged diverticulum of the right lateral wall of the bladder. Unchanged mild diffuse thicke joel of the wall of the bladder. Images of the lung bases show no evidence of pleural or parenchymal mass. There are no pleural effusi ons. The bony structures are free of lytic or blastic lesions. Multilevel degenerative changes are seen in volving the thoracolumbar spine. Scattered calcifications are seen involving the aorta and major branches compatible with atherosclero sis. IMPRESSION: Obstructing stone at the right ureterovesical junction. Left nephrolithiasis. Thank you for your kind referral of this patient.
[2016-10-16] MEDS ORDERED: BACT800T5 PO (03:58)
[2016-10-16 04:04] VITALS: BP 128/87
== END 2016-10-16 04:13 | disposition home or self-care (01) ==
LOC: M ED 01:47
DX: N39.0 Urinary tract infection, site not specified (principal); N20.1 Calculus of ureter; Z79.899 Other long term (current) drug therapy; Z88.0 Allergy status to penicillin; Z88.8 Allergy status to other drugs, medicaments and biological substances; F17.210 Nicotine dependence, cigarettes, uncomplicated

== ENCOUNTER 2016-10-20 14:43 | Emergency (ER) | payer OTHER ==
[~2016-10-20] VITALS: Ht 175.3 cm; Wt 70.3 kg
[~2016-10-20 14:43] MED LIST changes: +BACT800T5 PO
[2016-10-20] MEDS ORDERED: FLOM5CAP PO (14:53)
[2016-10-20] MEDS ORDERED: PERC7.5T3 PO (14:53)
[2016-10-20] MEDS ORDERED: ONDANSETRON 4MG/2ML VIAL (J2405) IV ONE (15:15)
[2016-10-20] MEDS ORDERED: KETOROLAC 30 MG/ML VIAL (J1885) IV ONE (15:15)
[2016-10-20 15:43] LABS: BASO % 0.5 % (0.0-1.0); EOS # 0.1 K/mm3 (0.0-0.50); EOS % 1.8 % (0.0-3.0); LARGE UNSTAINED CELL # 0.1 K/mm3 (0.0-0.4); LARGE UNSTAINED CELL % 1.6 % (0.0-4.0); LYMPH # 1.7 K/mm3 (1.5-6.5); LYMPH % 27.8 % (24.0-44.0); MEAN CORPUSCULAR HEMOGLOBIN 27.3 pg (27.0-33.0); MEAN CORPUSCULAR HGB CONC 31.5 g/dl (32.0-36.5); MEAN CORPUSCULAR VOLUME 86.7 fl (80.0-96.0); MONO # 0.3 K/mm3 (0.0-0.8); MONO % 5.6 % (0.0-5.0); NEUTROPHILS # 3.6 K/mm3 (1.8-7.7); NEUTROPHILS % 62.7 % (36.0-66.0); PLATELET COUNT, AUTOMATED 225 k/mm3 (150-450); RED CELL DISTRIBUTION WIDTH 12.9 % (11.5-14.5); WHITE BLOOD COUNT 5.7 K/mm3 (4.0-10.0)
[2016-10-20 16:04] LABS: ALBUMIN/GLOBULIN RATIO 1.18 (1.00-1.93); ALKALINE PHOSPHATASE 75 U/L (45-117); ALT/SGPT 19 U/L (12-78); ANION GAP 7 MEQ/L (8-16); AST/SGOT 14 U/L (15-37); BILIRUBIN,DIRECT 0.1 MG/DL (0.0-0.2); BILIRUBIN,TOTAL 0.2 MG/DL (0.2-1.0); BLOOD UREA NITROGEN 12 MG/DL (7-18); CALCIUM LEVEL 8.2 MG/DL (8.5-10.1); CARBON DIOXIDE LEVEL 28 MEQ/L (21-32); CHLORIDE LEVEL 102 MEQ/L (98-107); CREATININE FOR GFR 0.78 MG/DL (0.55-1.02); GLOMERULAR FILTRATION RATE > 60.0 (>60); GLUCOSE, FASTING 89 MG/DL (70-105); POTASSIUM SERUM 3.9 MEQ/L (3.5-5.1); SODIUM LEVEL 137 MEQ/L (136-145); TOTAL PROTEIN 7.4 GM/DL (6.4-8.2)
[2016-10-20 16:18] VITALS: BP 133/79
--- NOTE | 2016-10-20 16:24 | REP ---
RENAL ULTRASOUND: HISTORY: Pain. COMPARISON: 09/01/2016, which was normal. The kidneys are unchanged in size, shape, and echo pattern. Multiple ultrasonographic images of the right kidney show the right kidney to measure 10.9 x 4.4 x 6 cm. The renal cortical echotexture is unremarkable. There are no masses. There is good corticomedullary differentiation. There is no hydronephrosis. There are no perinephric fluid collections. Multiple ultrasonographic images of the right kidney show the left kidney to measure 11.4 x 6.2 x 5.7 cm. The renal cortical echotexture is unremarkable. There are no masses. There is good corticomedullary differentiation. There is no hydronephrosis. There are no perinephric fluid collections. Limited evaluation of the urinary bladder showed no evidence of gross abnormality. IMPRESSION: Unremarkable renal ultrasonography. Signed by Riley Aguilar DO 10/20/2016 04:48 P
== END 2016-10-20 16:21 | disposition home or self-care (01) ==
LOC: M ED 15:13
DX: R10.31 Right lower quadrant pain (principal); F33.9 Major depressive disorder, recurrent, unspecified; F90.9 Attention-deficit hyperactivity disorder, unspecified type; Z87.442 Personal history of urinary calculi; Z79.2 Long term (current) use of antibiotics; Z88.0 Allergy status to penicillin; Z88.8 Allergy status to other drugs, medicaments and biological substances; F17.210 Nicotine dependence, cigarettes, uncomplicated
CPT/HCPCS: 76775; 76830; 80048; 80076; 81001; 81025; 85025; 96374; 96375; 99283; J1885; J2405

== ENCOUNTER → 2016-10-25 | Outpatient (CLI) | payer OTHER ==
[~2016-10-25] MED LIST changes: +FLOM5CAP PO; +ISOVUE-370 76% 100ML VIAL (Q9967) As Ordered ONE; +PERC7.5T3 PO
--- NOTE | 2016-10-26 06:13 | REP ---
Clinical: Hydronephrosis. Technique: Axial precontrast, contrast enhanced, and delayed images of the abdomen and pelvis using 100 ml Isovue 370 intravenous contrast material with coronal and sagittal re-formations. Comparison: 10/16/2016, 05/14/2016 Findings: Evaluation of the urinary tract system in all phases of enhancement demonstrates mild chronic cortical scarring along the posterior aspect of the right kidney. There is no evidence for hydroureteronephrosis, perinephric stranding, obvious renal mass lesion or cyst. Visualized bilateral ureters are relatively normal; the left ureter can be followed in its entirety to the ureterovesical junction while the right ureter is identified to the mid pelvis but without obvious obstructing lesion and may be secondary to image acquisition timing. The bladder is grossly unremarkable and stable when compared to 05/14/2016 and two small calcifications inseparable from the right UVJ region are again noted and unchanged (images 130 - 136) -- which may represent small phleboliths or stable bladder calculi. Liver, spleen, pancreas, gallbladder, and bilateral adrenal glands are normal. The enteric system is unremarkable. Normal terminal ileum and appendix are identified in the right lower quadrant. Small fat containing periumbilical hernia noted. Pelvis demonstrates normal uterus / adnexa. No ascites. No free air. No adenopathy. Vasculature is normal. Musculoskeletal structures are intact without focal osseous abnormality. Impression: Urinary tract system as described above without evidence for hydronephrosis, nephrolithiasis or obvious urinary abnormality. Two small calcifications inseparable from the bladder wall at the right ureterovesical junction as noted above are unchanged compared to 05/14/2016. Signed by Gustavo Chinchilla MD 10/26/2016 06:05 A
== END ==
LOC: M RAD 16:30
PROVIDERS: ATTEND Urology
DX: N13.1 Hydronephrosis with ureteral stricture, not elsewhere classified (principal)

== ENCOUNTER 2016-10-28 11:54 | Emergency (ER) | payer OTHER ==
[~2016-10-28] VITALS: Ht 175.3 cm; Wt 70.3 kg
[~2016-10-28 11:54] MED LIST changes: -ISOVUE-370 76% 100ML VIAL (Q9967) As Ordered ONE
[2016-10-28] MEDS ORDERED: MORPHINE 2 MG/ML 1ML SYRINGE IV ONE (12:30)
[2016-10-28] MEDS ORDERED: ONDANSETRON 4MG/2ML VIAL (J2405) IV ONE (12:30)
[2016-10-28 13:30] LABS: BASO % 0.6 % (0.0-1.0); EOS # 0.1 K/mm3 (0.0-0.50); EOS % 1.7 % (0.0-3.0); LARGE UNSTAINED CELL # 0.1 K/mm3 (0.0-0.4); LARGE UNSTAINED CELL % 1.4 % (0.0-4.0); LYMPH # 1.2 K/mm3 (1.5-6.5); LYMPH % 16.4 % (24.0-44.0); MEAN CORPUSCULAR HGB CONC 32.2 g/dl (32.0-36.5); MONO # 0.4 K/mm3 (0.0-0.8); MONO % 5.4 % (0.0-5.0); NEUTROPHILS % 74.5 % (36.0-66.0); PLATELET COUNT, AUTOMATED 245 k/mm3 (150-450); RED CELL DISTRIBUTION WIDTH 13.1 % (11.5-14.5); WHITE BLOOD COUNT 6.7 K/mm3 (4.0-10.0)
[2016-10-28 13:44] LABS: CONTROL LINE HCG INT CTR LINE PRESENT
[2016-10-28] MEDS ORDERED: GASTROGRAFIN SOLUTION 30ML (Q9963) As Ordered ONE (13:45)
[2016-10-28 13:52] LABS: ANION GAP 5 MEQ/L (8-16); BLOOD UREA NITROGEN 11 MG/DL (7-18); CALCIUM LEVEL 8.6 MG/DL (8.5-10.1); CARBON DIOXIDE LEVEL 29 MEQ/L (21-32); CHLORIDE LEVEL 105 MEQ/L (98-107); CREATININE FOR GFR 0.75 MG/DL (0.55-1.02); GLOMERULAR FILTRATION RATE > 60.0 (>60); GLUCOSE, FASTING 85 MG/DL (70-105); POTASSIUM SERUM 3.9 MEQ/L (3.5-5.1); SODIUM LEVEL 139 MEQ/L (136-145)
[2016-10-28] MEDS ORDERED: GASTROGRAFIN SOLUTION 30ML (Q9963) PO ONE ×2 (13:55→14:25)
[2016-10-28] MEDS ORDERED: ISOVUE-370 76% 100ML VIAL (Q9967) As Ordered ONE (15:41)
[2016-10-28 16:28] VITALS: BP 107/65
[2016-10-28] MEDS ORDERED: CIPR500T89 PO (16:40)
--- NOTE | 2016-10-28 16:47 | REP ---
CT ABDOMEN AND PELVIS: HISTORY: Pain. COMPARISON: Three days ago. CONTRAST: 100 mL [id number]. The lung bases are clear and unchanged. The liver, gallbladder, spleen, pancreas, adrenal glands, and kidneys are unchanged. Note is again made of a wedge-shaped low density area seen involving the interpolar region of the right kidney, stable from 07/04/2016. It should be stated that on 01/04/2015, the patient had a right-sided nephrostomy tube entering that portion of the kidney. This likely represents a renal scar. There is no abnormal enhancement. The abdominal aorta and periaortic regions are within normal limits and unchanged. Today's examination shows a small amount of fluid in the right pericolic cutter. The appendix is again seen and is contrast opacified showing no evidence of an abnormality. There is no periappendiceal fatty infiltration or fatty infiltration of the mesoappendix. No free air is seen in the abdomen. The bowel loops and their mesenteries are within normal limits. There is a trace amount of free fluid in the pelvis. The cystic structures seen previously in the right adnexa is no longer present and it is potential that has caused the trace free pelvic fluid and trace fluid in the right pericolic cutter. No intraabdominal or intrapelvic mass or adenopathy is present. There is no change in the osseous structures. IMPRESSION: Minimal nonspecific findings of a small amount of free fluid in the right pericolic gutter and in the pelvis, but possibly secondary to recently decompressed right ovarian cyst. There is no evidence of an acute intraabdominal or intrapelvic inflammatory process. There is evidence of an old right renal scar, likely secondary to previous nephrostomy tube placement. That is unchanged since July 04, 2016. Other findings as described above. Signed by Riley Aguilar DO 10/29/2016 09:53 A
--- NOTE | 2016-10-28 16:51 | REP ---
PELVIC ULTRASOUND: HISTORY: Right lower quadrant pain. COMPARISON: 12/31/2014 The uterus measures 7.8 x 3.3 x 5.2 cm. The parenchymal echo pattern is within normal limits. The endometrial echo complex is unremarkable appearing measuring 9.6 mm in thickness. The right ovary measures 4.4 x 1.7 x 2.1 cm and is within normal limits for an RI of 0.40. The left ovary measures 2.6 x 2.7 x 2 cm and is within normal limits with an RI of 0.45. IMPRESSION: Unremarkable pelvic ultrasound. Signed by Riley Aguilar DO 10/29/2016 09:54 A
--- NOTE | 2016-10-28 16:53 | REP ---
RENAL ULTRASOUND: HISTORY: Right sided pain. COMPARISON: Eight days ago, which was normal. FINDINGS: Multiple ultrasonographic images of the right kidney show the right kidney to measure 10.6 x 4.1 x 5.3 cm. The renal cortical echotexture is unremarkable. There are no masses. There is good corticomedullary differentiation. There is no hydronephrosis. There are no perinephric fluid collections. Multiple ultrasonographic images of the right kidney show the left kidney to measure 11.6 x 5.6 x 4.3 cm. The renal cortical echotexture is unremarkable. There are no masses. There is good corticomedullary differentiation. There is no hydronephrosis. There are no perinephric fluid collections. IMPRESSION: Unremarkable renal ultrasonography. There is no change from the prior exam. Signed by Riley Aguilar DO 10/29/2016 09:54 A
--- NOTE | 2016-10-28 16:54 | REP ---
ABDOMINAL ULTRASOUND: HISTORY: Assess appendix as possible. The patient has right lower quadrant pain. Multiple ultrasonographic images of the right lower quadrant fail to identify the appendix. Appendicitis cannot be ruled out. Signed by Riley Aguilar DO 10/29/2016 09:54 A
== END 2016-10-28 16:46 | disposition home or self-care (01) ==
LOC: M ED 12:41
DX: R10.31 Right lower quadrant pain (principal); R30.0 Dysuria; Z87.442 Personal history of urinary calculi; F17.210 Nicotine dependence, cigarettes, uncomplicated
CPT/HCPCS: 74177; 76705; 76775; 76830; 76856; 80048; 81001; 84703; 85025; 87086; 93976; 96374; 96375; 99282; J2405; Q9963; Q9967

== ENCOUNTER → 2016-11-06 | Outpatient (CLI) | payer OTHER ==
[~2016-11-06] MED LIST changes: +OXYC1TAB23 PO; +PYRI200T5 PO
--- NOTE | 2016-11-06 17:48 | ECGEPIP ---
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
== END ==
LOC: M EKG 14:07
PROVIDERS: ATTEND Urology
DX: I10 Essential (primary) hypertension (principal)

== ENCOUNTER 2016-11-11 12:53 | Emergency (ER) | payer OTHER ==
[~2016-11-11] VITALS: Ht 172.7 cm; Wt 72.6 kg
[2016-11-11 12:53] VITALS: BP 146/99
[~2016-11-11 12:53] MED LIST changes: -OXYC1TAB23 PO; -PYRI200T5 PO
[2016-11-11] MEDS ORDERED: OXYC1TAB23 PO (13:01)
[2016-11-11] MEDS ORDERED: ONDANSETRON 4 MG ORAL DISINTEGRATING TAB (S0181) PO ONE (14:00)
[2016-11-11] MEDS ORDERED: NORCO, ANEXSIA 5/325MG TABLET (HYDROcodone/ACETAMINOPHEN) PO ONE (14:00)
[2016-11-11 14:17] LABS: BASO % 0.2 % (0.0-1.0); EOS # 0.2 K/mm3 (0.0-0.50); EOS % 2.4 % (0.0-3.0); LARGE UNSTAINED CELL # 0.1 K/mm3 (0.0-0.4); LARGE UNSTAINED CELL % 0.8 % (0.0-4.0); LYMPH # 1.2 K/mm3 (1.5-6.5); LYMPH % 13.1 % (24.0-44.0); MEAN CORPUSCULAR HEMOGLOBIN 28.9 pg (27.0-33.0); MEAN CORPUSCULAR HGB CONC 32.4 g/dl (32.0-36.5); MEAN CORPUSCULAR VOLUME 89.2 fl (80.0-96.0); MONO # 0.4 K/mm3 (0.0-0.8); MONO % 4.8 % (0.0-5.0); NEUTROPHILS # 7.1 K/mm3 (1.8-7.7); NEUTROPHILS % 78.7 % (36.0-66.0); PLATELET COUNT, AUTOMATED 249 k/mm3 (150-450); RED CELL DISTRIBUTION WIDTH 13.1 % (11.5-14.5)
[2016-11-11 14:40] LABS: ALBUMIN 3.8 GM/DL (3.2-5.2); ALBUMIN/GLOBULIN RATIO 1.12 (1.00-1.93); ALKALINE PHOSPHATASE 70 U/L (45-117); ALT/SGPT 17 U/L (12-78); ANION GAP 6 MEQ/L (8-16); AST/SGOT 13 U/L (15-37); BILIRUBIN,DIRECT 0.1 MG/DL (0.0-0.2); BILIRUBIN,TOTAL 0.3 MG/DL (0.2-1.0); BLOOD UREA NITROGEN 16 MG/DL (7-18); CALCIUM LEVEL 8.7 MG/DL (8.5-10.1); CARBON DIOXIDE LEVEL 29 MEQ/L (21-32); CHLORIDE LEVEL 105 MEQ/L (98-107); CREATININE FOR GFR 0.78 MG/DL (0.55-1.02); GLOMERULAR FILTRATION RATE > 60.0 (>60); GLUCOSE, FASTING 86 MG/DL (70-105); POTASSIUM SERUM 4.5 MEQ/L (3.5-5.1); SODIUM LEVEL 140 MEQ/L (136-145); TOTAL PROTEIN 7.2 GM/DL (6.4-8.2)
--- NOTE | 2016-11-11 14:44 | REP ---
Clinical: Right flank pain with recent stent placement. Technique: Real time driscoll scale ultrasound examination using curved array transducer. Findings: The right kidney is normal in size, echogenicity, and reniform shape measuring 11.2 x 5.7 x 4.9 cm and mild hydronephrosis is suggested. A stent is identified in the renal pelvis and no obvious nephrolithiasis cystic or mass lesion is appreciated. The left kidney is completely normal and measures 11.6 x 5.2 x 6.0 cm. Impression: Right kidney demonstrates mild renal hydronephrosis and ureteral stent within the renal pelvis. Signed by Gustavo Chinchilla MD 11/11/2016 02:36 P
[2016-11-11] MEDS ORDERED: NORCOTAB PO (15:18)
[2016-11-11] MEDS ORDERED: PYRI200T5 PO (15:18)
[2016-11-11] MEDS ORDERED: PHENAZOPYRIDINE 100 MG TAB PO ONE (15:30)
== END 2016-11-11 15:23 | disposition home or self-care (01) ==
LOC: M ED 14:05
DX: N13.30 Unspecified hydronephrosis (principal)

== ENCOUNTER → 2016-11-29 | Outpatient (REF) | payer OTHER ==
[~2016-11-29] MED LIST changes: +OXYC1TAB23 PO; +PYRI200T5 PO
== END ==
LOC: M LAB REF 09:18
PROVIDERS: ATTEND Physician Assistant
DX: R30.0 Dysuria (principal)

== ENCOUNTER → 2016-12-13 | Outpatient (CLI) | payer OTHER ==
[~2016-12-13] MED LIST changes: +IBUP80TA PO
--- NOTE | 2016-12-14 01:06 | REP ---
Clinical: Pain. Technique: AP, lateral, bilateral oblique views left hand . Findings: The osseous structures and joint spaces are intact and normal. There is no evidence for acute fracture or dislocation. Surrounding soft tissues are unremarkable. No subcutaneous emphysema or radiodense foreign body. Impression: Normal examination. No acute fracture or dislocation. Signed by Gustavo Chinchilla MD 12/14/2016 12:58 A
== END ==
LOC: M WUC 17:24
PROVIDERS: ATTEND Physician Assistant
DX: M25.542 Pain in joints of left hand (principal)

== ENCOUNTER 2016-12-17 21:42 | Emergency (ER) | payer MEDICAID, OTHER ==
[~2016-12-17] VITALS: Ht 172.7 cm; Wt 78.5 kg
[~2016-12-17 21:42] MED LIST changes: +CIPR-249 PO; -CIPR500T89 PO; -IBUP80TA PO; +PERC5TAB12 PO; -PERC5TAB6 PO; +PERC7.5T11 PO; -PERC7.5T3 PO; +PYRI1TAB5 PO; -PYRI200T5 PO
[2016-12-17 21:43] VITALS: BP 140/85
[2016-12-18] MEDS ORDERED: CIPROFLOXACIN 500 MG TAB PO ONE (00:15)
[2016-12-18] MEDS ORDERED: NORCO 5/325MG TABLET (BULK FOR ED) PO ONE (00:15)
[2016-12-18] MEDS ORDERED: CIPR-249 PO (00:16)
[2016-12-18] MEDS ORDERED: IBUP80TA PO (22:03)
== END 2016-12-18 00:36 | disposition home or self-care (01) ==
LOC: M ED 23:40
DX: N39.0 Urinary tract infection, site not specified (principal); R10.9 Unspecified abdominal pain; G89.29 Other chronic pain

== ENCOUNTER 2016-12-18 18:44 | Emergency (ER) | payer OTHER ==
[~2016-12-18] VITALS: Ht 172.7 cm; Wt 77.8 kg
[2016-12-18] MEDS ORDERED: KETOROLAC 60 MG/2 ML VIAL (J1885) IM ONE (20:45)
[2016-12-18 21:59] VITALS: BP 122/84
[2016-12-18] MEDS ORDERED: IBUP80TA PO (22:03)
--- NOTE | 2016-12-18 22:43 | REP ---
Clinical: Trauma. Technique: AP, lateral, flexion/extension, bilateral oblique, and open-mouth views. Findings: Alignment and lordosis is maintained. There is no evidence for acute fracture / compression injury or subluxation. No significant degenerative changes are appreciated. Oblique views demonstrate patent neural foramen. Open mouth view demonstrates normal C1-C2 articulation and odontoid process. Impression: Normal cervical spine series. No evidence for acute fracture / compression injury or subluxation. Signed by Gustavo Chinchilla MD 12/18/2016 10:34 P
--- NOTE | 2016-12-18 22:44 | REP ---
Clinical: Trauma . Comparison: 05/15/2016 . Technique: PA and lateral. Findings: The mediastinum and cardiac silhouette are normal. The lung nj are clear and without acute consolidation, effusion, or pneumothorax. The skeletal structures are intact and normal. Impression: 1. No acute cardiopulmonary process. Signed by Gustavo Chinchilla MD 12/18/2016 10:35 P
== END 2016-12-18 22:08 | disposition home or self-care (01) ==
LOC: M ED 19:53
DX: R51 Headache (principal); S13.4XXA Sprain of ligaments of cervical spine, initial encounter; S20.219A Contusion of unspecified front wall of thorax, initial encounter; V49.40XA Driver injured in collision with unspecified motor vehicles in traffic accident, initial encounter; Y92.410 Unspecified street and highway as the place of occurrence of the external cause; Y93.89 Activity, other specified; Y99.9 Unspecified external cause status
CPT/HCPCS: 71020; 72052; 96372; 99282; J1885

== ENCOUNTER 2016-12-27 15:09 | Emergency (ER) | payer MEDICAID, OTHER ==
[~2016-12-27] VITALS: Ht 175.3 cm; Wt 76.9 kg
[~2016-12-27 15:09] MED LIST changes: +IBUP80TA PO
[2016-12-27] MEDS ORDERED: KETOROLAC 30 MG/ML VIAL (J1885) IV ONE (16:00)
[2016-12-27] MEDS ORDERED: NS 1,000 ML IV ONE (16:00)
[2016-12-27 18:02] LABS: BASO % 0.3 % (0.0-1.0); EOS # 0.1 K/mm3 (0.0-0.50); EOS % 0.6 % (0.0-3.0); LARGE UNSTAINED CELL # 0.1 K/mm3 (0.0-0.4); LARGE UNSTAINED CELL % 0.9 % (0.0-4.0); LYMPH # 0.6 K/mm3 (1.5-6.5); LYMPH % 5.1 % (24.0-44.0); MEAN CORPUSCULAR HEMOGLOBIN 28.8 pg (27.0-33.0); MEAN CORPUSCULAR VOLUME 87.3 fl (80.0-96.0); MONO # 0.7 K/mm3 (0.0-0.8); MONO % 6.4 % (0.0-5.0); NEUTROPHILS # 9.3 K/mm3 (1.8-7.7); NEUTROPHILS % 86.7 % (36.0-66.0); PLATELET COUNT, AUTOMATED 200 k/mm3 (150-450); RED CELL DISTRIBUTION WIDTH 12.7 % (11.5-14.5); WHITE BLOOD COUNT 10.8 K/mm3 (4.0-10.0)
--- NOTE | 2016-12-27 18:10 | REP ---
CT ABDOMEN AND PELVIS WITHOUT CONTRAST: HISTORY: Renal colic. COMPARISON: 11/11/2016 Calcifications are present in the left kidney consistent with nephrolithiasis. A small area of scarring is present in the medial right kidney. The liver, gallbladder, pancreas, spleen, and adrenal glands are normal in appearance. There is no mass adenopathy, or free fluid. The visualized lungs are clear. IMPRESSION: 1. Left nephrolithiasis. 2. There is a small area of scarring in the medial right kidney. CT PELVIS: A small linear calcification is present in the right posterior urinary bladder wall. The uterus is normal in appearance. A small cystic structure is present in the region of the left adnexa. This likely represents an ovarian cyst. There is no mass, adenopathy, or free fluid. The bony structure is intact. IMPRESSION: There is a small cystic structure in the left adnexal region likely representing a small ovarian cyst. Signed by Afshin Carcamo MD 12/27/2016 06:20 P
[2016-12-27 18:17] LABS: ALBUMIN/GLOBULIN RATIO 1.29 (1.00-1.93); ALKALINE PHOSPHATASE 71 U/L (45-117); ALT/SGPT 19 U/L (12-78); ANION GAP 10 MEQ/L (8-16); AST/SGOT 11 U/L (15-37); BILIRUBIN,DIRECT < 0.1 MG/DL (0.0-0.2); BILIRUBIN,TOTAL 0.4 MG/DL (0.2-1.0); BLOOD UREA NITROGEN 14 MG/DL (7-18); CALCIUM LEVEL 8.3 MG/DL (8.5-10.1); CARBON DIOXIDE LEVEL 24 MEQ/L (21-32); CHLORIDE LEVEL 105 MEQ/L (98-107); CREATININE FOR GFR 0.75 MG/DL (0.55-1.02); GLOMERULAR FILTRATION RATE > 60.0 (>60); GLUCOSE, FASTING 97 MG/DL (70-105); POTASSIUM SERUM 4.1 MEQ/L (3.5-5.1); SODIUM LEVEL 139 MEQ/L (136-145); TOTAL PROTEIN 7.1 GM/DL (6.4-8.2)
[2016-12-27] MEDS ORDERED: CIPROFLOXACIN 400 MG in APPROPRIATE DILUENT 1 EA IV ONE (18:30)
[2016-12-27] MEDS ORDERED: ACETAMINOPHEN TAB 650MG DOSE (2X325MG) PO ONE (18:30)
[2016-12-27] MEDS ORDERED: CIPR-249 PO (19:59)
[2016-12-27 20:05] VITALS: BP 120/72
== END 2016-12-27 20:11 | disposition home or self-care (01) ==
LOC: M ED 15:09
DX: N39.0 Urinary tract infection, site not specified (principal); R51 Headache; F17.210 Nicotine dependence, cigarettes, uncomplicated
CPT/HCPCS: 36415; 74176; 80048; 80076; 81001; 81025; 83690; 85025; 87088; 87186; 96374; 96375; 99284; J0744; J1885

== ENCOUNTER 2017-02-07 19:28 | Emergency (ER) | payer MEDICAID, OTHER ==
[~2017-02-07] VITALS: Ht 175.3 cm; Wt 76.1 kg
[2017-02-07] MEDS ORDERED: PERCOCET 5MG/325MG TAB PO ONE (21:00)
[2017-02-07 22:38] VITALS: BP 130/70
--- NOTE | 2017-02-07 22:40 | REPUSA ---
CLINICAL HISTORY: Right flank pain and history of kidney stones. COMPARISON: 12/27/2016. TECHNIQUE: Multiple axial, coronal, sagittal CT images were obtained through the abdomen and pelvis without administration of oral or IV contrast material. COMMENTS: The liver is of uniform attenuation without mass or defect. There is no intra or extrahepatic biliar y ductal dilatation. The spleen is normal. The gallbladder is within normal limits. The pancreas i s of normal contour and attenuation characteristics. There is no evidence of adrenal mass. There is a known history of re-implantation of the right ureter. There are apparent calcifications n oted in the region of the UVJ which are unchanged since the prior study. There is no evidence of hyd roureter or hydronephrosis. There are calcifications noted within the left renal medullary portion s uggesting medullary nephrocalcinosis. This was present on the prior study as well. There is no evidence for appendicitis. There is no bowel wall thickening. No evidence for small or large bowel obstruction. There is no evidence of abdominal ascites or lymphadenopathy. There is no evidence of intrinsic or extrinsic bladder mass. There is no pelvic ascites or lymphaden opathy. The uterus and ovaries are unremarkable. Images of the lung bases show no evidence of pleural or parenchymal mass. There are no pleural effus ions. The bony structures are free of lytic or blastic lesions. IMPRESSION: 1. No significant interval change. 2. There is a known history of re-implantation of the right ureter. There are apparent calcificatio ns noted in the region of the UVJ which are unchanged since the prior study. 3. There are calcifications noted within the left renal medullary portion suggesting medullary nephr ocalcinosis.
== END 2017-02-07 23:10 | disposition home or self-care (01) ==
LOC: M ED 19:28
DX: R10.9 Unspecified abdominal pain (principal); Z72.0 Tobacco use

== ENCOUNTER 2017-03-30 16:45 | Emergency (ER) | payer OTHER ==
[~2017-03-30] VITALS: Ht 175.3 cm; Wt 72.7 kg
[2017-03-30] MEDS ORDERED: KETOROLAC 30 MG/ML VIAL (J1885) IV ONE (19:15)
--- NOTE | 2017-03-30 20:00 | REPUSA ---
Clinical history: Pain. Findings: Real-time transabdominal ultrasound images of the pelvis were obtained. An anteverted uteru s is noted, measuring 6.8 x 3.8 x 4.8 cm. The uterus demonstrates normal echotexture and echogenicity . The endometrial stripe measures 10 mm and is within normal limits. The right ovary measures 2.7 x 1 .5 x 1.9 cm. The left ovary measures 4.7 x 2.5 x 2.8 cm. No adnexal masses are seen. Color Doppler fl ow is seen within both ovaries. There is no evidence of free fluid. Impression: Unremarkable ultrasound examination of the pelvis.
[2017-03-30] MEDS ORDERED: MORPHINE 4 MG/ML 1ML SYRINGE IV ONE (20:30)
[2017-03-30 20:47] LABS: BASO % 0.3 % (0.0-1.0); EOS # 0.1 10^3/uL (0.0-0.50); EOS % 1.3 % (0.0-3.0); IMMATURE GRANULOCYTE % 0.3 % (0-0); LYMPH # 2.2 10^3/uL (1.5-6.5); LYMPH % 21.7 % (24.0-44.0); MEAN CORPUSCULAR HEMOGLOBIN 28.2 pg (27.0-33.0); MEAN CORPUSCULAR HGB CONC 32.9 g/dl (32.0-36.5); MEAN CORPUSCULAR VOLUME 85.8 fl (80.0-96.0); MONO # 0.9 10^3/uL (0.0-0.8); MONO % 9.1 % (0.0-5.0); NEUTROPHILS # 6.9 10^3/uL (1.8-7.7); NEUTROPHILS % 67.3 % (36.0-66.0); PLATELET COUNT, AUTOMATED 230 10^3/uL (150-450); RED CELL DISTRIBUTION WIDTH 13.2 % (11.5-14.5); WHITE BLOOD COUNT 10.2 10^3/uL (4.0-10.0)
[2017-03-30 21:04] LABS: ANION GAP 8 MEQ/L (8-16); BLOOD UREA NITROGEN 13 MG/DL (7-18); CALCIUM LEVEL 8.5 MG/DL (8.5-10.1); CARBON DIOXIDE LEVEL 26 MEQ/L (21-32); CHLORIDE LEVEL 104 MEQ/L (98-107); CREATININE FOR GFR 0.71 MG/DL (0.55-1.02); GLOMERULAR FILTRATION RATE > 60.0 (>60); GLUCOSE, FASTING 78 MG/DL (70-105); POTASSIUM SERUM 3.7 MEQ/L (3.5-5.1); SODIUM LEVEL 138 MEQ/L (136-145)
--- NOTE | 2017-03-30 21:40 | REPUSA ---
CT of the abdomen and pelvis without contrast Clinical statement: Pain. Technique: Multiple axial CT images were obtained from the base of the lungs to the floor of the pelv is utilizing 5 mm axial slices without administration of contrast. Coronal and sagittal reconstructio ns were also obtained. Comparison: 02/07/2017. Findings: Chest: The visualized lung bases are clear. Abdomen: The kidneys are normal in size bilaterally. Surgical changes in the right ureter are stable. There is no evidence of hydronephrosis or nephrolithiasis. The liver, spleen, pancreas, gallbladder and adrenal glands are unremarkable. The aorta demonstrates normal caliber and contour. There is no a bdominal lymphadenopathy or ascites. Pelvis: The bowel is unremarkable, with no obstructive or inflammatory changes. Moderate amount of st ool fills the colon. The appendix is normal. The urinary bladder is within normal limits. There is no pelvic lymphadenopathy or ascites. The other pelvic structures appear unremarkable. Bones: There are no suspicious osseous abnormalities seen. Impression: 1. No evidence of hydronephrosis or nephrolithiasis. 2. Mild right-sided constipation. No obstructive bowel changes.
[2017-03-30] MEDS ORDERED: ULTR50TA8 PO (21:54)
[2017-03-30 21:56] VITALS: BP 132/83
[2017-03-30] MEDS ORDERED: COLA100C5 PO (21:58)
== END 2017-03-30 22:06 | disposition home or self-care (01) ==
LOC: M ED 16:45
DX: K59.00 Constipation, unspecified (principal); F33.9 Major depressive disorder, recurrent, unspecified; F90.9 Attention-deficit hyperactivity disorder, unspecified type; F91.3 Oppositional defiant disorder; F17.210 Nicotine dependence, cigarettes, uncomplicated; Z88.8 Allergy status to other drugs, medicaments and biological substances; Z88.0 Allergy status to penicillin; Z87.442 Personal history of urinary calculi; Z98.890 Other specified postprocedural states
CPT/HCPCS: 74176; 76856; 80048; 81001; 81025; 85025; 93976; 96374; 96375; 99283; J1885

== ENCOUNTER 2017-05-30 13:16 | Emergency (ER) | payer OTHER ==
[~2017-05-30] VITALS: Ht 175.3 cm; Wt 72.7 kg
[~2017-05-30 13:16] MED LIST changes: +COLA100C5 PO; +ULTR50TA8 PO
[2017-05-30] MEDS ORDERED: KETOROLAC 30 MG/ML VIAL (J1885) IV ONE (13:45)
[2017-05-30] MEDS ORDERED: NS 1,000 ML IV ONE (13:45)
[2017-05-30 13:56] LABS: BASO % 0.2 % (0.0-1.0); EOS # 0.1 10^3/uL (0.0-0.50); IMMATURE GRANULOCYTE % 0.3 % (0-0); LYMPH # 1.5 10^3/uL (1.5-6.5); LYMPH % 24.8 % (24.0-44.0); MEAN CORPUSCULAR HEMOGLOBIN 28.4 pg (27.0-33.0); MEAN CORPUSCULAR HGB CONC 32.8 g/dl (32.0-36.5); MEAN CORPUSCULAR VOLUME 86.6 fl (80.0-96.0); MONO # 0.5 10^3/uL (0.0-0.8); NEUTROPHILS # 3.9 10^3/uL (1.8-7.7); NEUTROPHILS % 64.7 % (36.0-66.0); PLATELET COUNT, AUTOMATED 239 10^3/uL (150-450); WHITE BLOOD COUNT 6.1 10^3/uL (4.0-10.0)
[2017-05-30 14:23] LABS: ALBUMIN 4.1 GM/DL (3.2-5.2); ALBUMIN/GLOBULIN RATIO 1.11 (1.00-1.93); ALKALINE PHOSPHATASE 58 U/L (45-117); ALT/SGPT 17 U/L (12-78); ANION GAP 7 MEQ/L (8-16); AST/SGOT 12 U/L (7-37); BILIRUBIN,DIRECT < 0.1 MG/DL (0.0-0.2); BILIRUBIN,TOTAL 0.2 MG/DL (0.2-1.0); BLOOD UREA NITROGEN 14 MG/DL (7-18); CALCIUM LEVEL 8.9 MG/DL (8.5-10.1); CARBON DIOXIDE LEVEL 28 MEQ/L (21-32); CHLORIDE LEVEL 106 MEQ/L (98-107); CREATININE FOR GFR 0.68 MG/DL (0.55-1.02); GLOMERULAR FILTRATION RATE > 60.0 (>60); GLUCOSE, FASTING 99 MG/DL (70-105); POTASSIUM SERUM 3.6 MEQ/L (3.5-5.1); SODIUM LEVEL 141 MEQ/L (136-145); TOTAL PROTEIN 7.8 GM/DL (6.4-8.2)
--- NOTE | 2017-05-30 14:45 | REP ---
BILATERAL RENAL ULTRASOUND COMPLETE: 05/30/2017 CLINICAL HISTORY: Right flank pain, history of kidney stones. COMPARISON: 11/11/2016, CT 03/30/2017. FINDINGS: Right kidney is 12 x 4.3 x 6 cm. Left kidney is 11.4 x 6.1 x 6.5 cm. Both kidneys show normal cortical echogenicity and thickness. I see no hydronephrosis, cyst, solid mass or visible stone in either kidney. No perinephric fluid. The bladder is only partially filled and cannot be well evaluated. No visible stone or debris. IMPRESSION: Fairly symmetric renal size without stone, mass, cyst, hydronephrosis or other acute finding. The bladder cannot be evaluated as it is not well distended. Signed by Juancarlos Hercules MD 05/30/2017 07:41 P
--- NOTE | 2017-05-30 15:30 | REP ---
CT ABDOMEN/PELVIS WITHOUT IV CONTRAST: 05/30/2017 COMPARISON: Renal ultrasound today, CT abdomen/pelvis, 03/30/2017. CLINICAL HISTORY: Right flank pain. History of stones. Negative renal ultrasound today. FINDINGS: CT ABDOMEN: Lung bases remain clear. Heart not enlarged. There is no pericardial thickening or effusion and no hiatal hernia. Stomach filled with retained food. Liver, spleen, contracted gallbladder, pancreas, and adrenal glands are normal. Kidneys show a couple of punctate densities in the upper pole pyramid on the right and a few in the interpolar and lower pole pyramids suggesting very early calcification forming in pyramids. No definite collecting system stone in the kidneys. No hydronephrosis. I see no definite hydroureter. However, there are a couple of calcifications at the bladder wall on the left about 6.3 mm, but these are unchanged from the previous study. I do know there is a history of reimplantation of the ureter. The ureter above is not dilated. There is no hydronephrosis. No other bladder findings. Uterus anteverted and unchanged. No adnexal mass. Distal left colon, sigmoid, and rectum intact. Small bowel loops in the pelvis, unremarkable. No ventral or inguinal hernia nor pathologic sized inguinal adenopathy CT PELVIS: Bone windows show the pelvis, hips, sacrum, SI joints and lumbosacral junction, unchanged. Bladder partially filled with right bladder wall with a couple of calcifications in the bladder wall near the UVJ but these are not contribute to ureteral dilatation or other findings are stable for several examinations. IMPRESSION: 1. There are a few tiny punctate densities in pyramids bilaterally that may reflect very early formation of stones but none in the collecting systems, ureters, or freely in the bladder. 2. No visible hydroureter. 3. There are two punctate calcific densities along the posterior lateral right bladder wall. These are unchanged from multiple prior studies. These may be related to prior right ureteral reimplantation surgery. No dilated ureter proximal to them nor other stones directly in the bladder or in the distal ureter. Signed by Juancarlos Hercules MD 05/30/2017 07:45 P
[2017-05-30] MEDS ORDERED: FLOM5CAP PO (16:14)
[2017-05-30] MEDS ORDERED: NORC1TAB4 PO (16:14)
[2017-05-30 16:32] VITALS: BP 119/70
== END 2017-05-30 16:35 | disposition home or self-care (01) ==
LOC: M ED 13:16
DX: R10.9 Unspecified abdominal pain (principal); N28.9 Disorder of kidney and ureter, unspecified; Z87.442 Personal history of urinary calculi; F33.9 Major depressive disorder, recurrent, unspecified; F90.9 Attention-deficit hyperactivity disorder, unspecified type; F91.3 Oppositional defiant disorder; F17.210 Nicotine dependence, cigarettes, uncomplicated
CPT/HCPCS: 36415; 74176; 76775; 80048; 80076; 81001; 81025; 83690; 85025; 96361; 96374; 99284; J1885

== ENCOUNTER 2017-06-04 14:29 | Emergency (ER) | payer OTHER ==
[~2017-06-04] VITALS: Ht 175.3 cm; Wt 72.7 kg
[2017-06-04 14:29] VITALS: BP 141/90
[~2017-06-04 14:29] MED LIST changes: +NORC1TAB4 PO
[2017-06-04] MEDS ORDERED: KETOROLAC 30 MG/ML VIAL (J1885) IV ONE (17:30)
--- NOTE | 2017-06-04 18:42 | REP ---
Urinary tract sonography: History: Right flank pain. CVA tenderness. History of stones. Comparison sonography May 30, 2017. Comparison CT study May 30, 2017. Findings: Today's sonography demonstrates new moderate degree of right-sided hydronephrosis with proximal hydroureter. No stone is visible sonographically. The hydronephrosis is new since the May 30, 2017 study. No left-sided hydronephrosis is seen. The urinary bladder is distended today as well. Right renal dimensions are 12.1 x 6.0 x 4.7 cm. The left kidney measures 11.5 x 5.4 x 6.1 cm. No mass or calculus is seen or cyst on either side. Impression: Moderate and new right-sided hydronephrosis. Etiology not defined sonographically. No stone is visible. Signed by Bryan Cruz MD 06/04/2017 07:55 P
[2017-06-04] MEDS ORDERED: MORPHINE 4 MG/ML 1ML SYRINGE IV ONE (18:45)
[2017-06-04] MEDS ORDERED: NITR100C39 PO (19:55)
[2017-06-04] MEDS ORDERED: NORCOTAB PO (19:55)
== END 2017-06-04 20:10 | disposition home or self-care (01) ==
LOC: M ED 14:29
DX: N30.90 Cystitis, unspecified without hematuria (principal); R33.8 Other retention of urine; N28.9 Disorder of kidney and ureter, unspecified; Z87.442 Personal history of urinary calculi; Z88.0 Allergy status to penicillin; Z88.8 Allergy status to other drugs, medicaments and biological substances; F17.210 Nicotine dependence, cigarettes, uncomplicated
CPT/HCPCS: 51702; 76775; 81001; 96374; 96375; 99284; J1885

== ENCOUNTER 2017-07-07 19:39 | Emergency (ER) | payer OTHER ==
[2017-07-07 20:22] LABS: KETONE, URINE AUTO RFX NEGATIVE (NEGATIVE); MUCUS, URINE RFX SMALL (NEGATIVE); NITRITE, URINE AUTO RFX NEGATIVE (NEGATIVE); RBC, URINE AUTO RFX 15 /HPF (0-3); SPECIFIC GRAVITY UR AUTO RFX 1.018 (1.002-1.035); SQUAM EPITHELIAL CELL UR AURFX 7 /HPF (0-6)
[2017-07-07 20:26] LABS: LEUKOCYTE ESTERASE UR AUTO RFX TRACE (NEGATIVE); WBC, URINE AUTO RFX 17 /HPF (0-3)
[2017-07-07] MEDS ORDERED: KETOROLAC 30 MG/ML VIAL (J1885) IV (23:15)
[2017-07-07 23:33] LABS: BASO % 0.2 % (0.0-1.0); EOS # 0.1 10^3/uL (0.0-0.50); EOS % 1.2 % (0.0-3.0); HEMATOCRIT 40.3 % (36.0-47.0); IMMATURE GRANULOCYTE % 0.3 % (0-0); LYMPH # 2.2 10^3/uL (1.5-6.5); LYMPH % 20.7 % (24.0-44.0); MEAN CORPUSCULAR HEMOGLOBIN 28.3 pg (27.0-33.0); MEAN CORPUSCULAR HGB CONC 32.3 g/dl (32.0-36.5); MEAN CORPUSCULAR VOLUME 87.6 fl (80.0-96.0); MONO # 0.9 10^3/uL (0.0-0.8); MONO % 8.9 % (0.0-5.0); NEUTROPHILS # 7.2 10^3/uL (1.8-7.7); NEUTROPHILS % 68.7 % (36.0-66.0); PLATELET COUNT, AUTOMATED 271 10^3/uL (150-450); RED CELL DISTRIBUTION WIDTH 12.9 % (11.5-14.5); WHITE BLOOD COUNT 10.5 10^3/uL (4.0-10.0)
[2017-07-07] MEDS: IBUPROFEN 600 MG TAB PO (23:55)
[2017-07-07 23:58] LABS: CONTROL LINE UCG INT CTR LINE PRESENT; URINE PREG TEST NEGATIVE (NEGATIVE)
[2017-07-07 23:59] LABS: ANION GAP 8 MEQ/L (8-16); BLOOD UREA NITROGEN 14 MG/DL (7-18); C REACTIVE PROTEIN QUANTITATIV < 0.30 MG/DL (0.00-0.30); CALCIUM LEVEL 9.3 MG/DL (8.5-10.1); CARBON DIOXIDE LEVEL 27 MEQ/L (21-32); CHLORIDE LEVEL 106 MEQ/L (98-107); CREATININE FOR GFR 0.61 MG/DL (0.55-1.02); GLOMERULAR FILTRATION RATE > 60.0 (>60); GLUCOSE, FASTING 85 MG/DL (70-105); POTASSIUM SERUM 3.8 MEQ/L (3.5-5.1); SODIUM LEVEL 141 MEQ/L (136-145)
[2017-07-08] MEDS: NITROFURANTOIN (MACROBID) 100 MG CAP PO (00:10)
[2017-07-08] MEDS: NORCO 5/325MG TABLET (BULK FOR ED) PO (00:10)
== END 2017-07-08 00:18 | disposition home or self-care (01) ==
LOC: M ED 07-08 00:18
DX: N39.0 Urinary tract infection, site not specified (principal); Z87.440 Personal history of urinary (tract) infections; Z87.442 Personal history of urinary calculi; Z96.0 Presence of urogenital implants; Z88.0 Allergy status to penicillin; Z88.8 Allergy status to other drugs, medicaments and biological substances; F17.210 Nicotine dependence, cigarettes, uncomplicated
CPT/HCPCS: 76775

== ENCOUNTER 2017-07-29 22:48 | Emergency (ER) | payer OTHER ==
[2017-07-30] MEDS: KETOROLAC 30 MG/ML VIAL (J1885) IV (01:30)
[2017-07-30 02:40] LABS: AMORPHOUS SEDIMENT RFX SMALL (NEGATIVE); KETONE, URINE AUTO RFX NEGATIVE (NEGATIVE); MUCUS, URINE RFX SMALL (NEGATIVE); NITRITE, URINE AUTO RFX NEGATIVE (NEGATIVE); RBC, URINE AUTO RFX 6 /HPF (0-3); SPECIFIC GRAVITY UR AUTO RFX 1.017 (1.002-1.035); SQUAM EPITHELIAL CELL UR AURFX 3 /HPF (0-6)
[2017-07-30 02:42] LABS: BASO # 0.1 10^3/uL (0.0-0.2); BASO % 0.6 % (0.0-1.0); EOS # 0.2 10^3/uL (0.0-0.50); EOS % 1.9 % (0.0-3.0); HEMATOCRIT 41.7 % (36.0-47.0); HEMOGLOBIN 13.8 g/dl (12.0-16.0); LEUKOCYTE ESTERASE UR AUTO RFX 3+ (NEGATIVE); LYMPH # 2.5 10^3/uL (1.5-6.5); LYMPH % 29.8 % (24.0-44.0); MEAN CORPUSCULAR HEMOGLOBIN 28.8 pg (27.0-33.0); MEAN CORPUSCULAR HGB CONC 33.1 g/dl (32.0-36.5); MEAN CORPUSCULAR VOLUME 86.9 fl (80.0-96.0); MONO # 0.9 10^3/uL (0.0-0.8); MONO % 10.4 % (0.0-5.0); NEUTROPHILS # 4.7 10^3/uL (1.8-7.7); NEUTROPHILS % 57.3 % (36.0-66.0); PLATELET COUNT, AUTOMATED 296 10^3/uL (150-450); RED CELL DISTRIBUTION WIDTH 12.8 % (11.5-14.5); WBC, URINE AUTO RFX 47 /HPF (0-3); WHITE BLOOD COUNT 8.2 10^3/uL (4.0-10.0)
[2017-07-30 02:57] LABS: CONTROL LINE HCG INT CTR LINE PRESENT; HCG, SERUM QUALITATIVE NEGATIVE (NEGATIVE)
[2017-07-30 03:05] LABS: ALBUMIN 4.1 GM/DL (3.2-5.2); ALBUMIN/GLOBULIN RATIO 1.17 (1.00-1.93); ALKALINE PHOSPHATASE 68 U/L (45-117); ALT/SGPT 19 U/L (12-78); ANION GAP 7 MEQ/L (8-16); AST/SGOT 11 U/L (7-37); BILIRUBIN,DIRECT < 0.1 MG/DL (0.0-0.2); BILIRUBIN,TOTAL 0.2 MG/DL (0.2-1.0); BLOOD UREA NITROGEN 18 MG/DL (7-18); CALCIUM LEVEL 9.2 MG/DL (8.5-10.1); CARBON DIOXIDE LEVEL 28 MEQ/L (21-32); CHLORIDE LEVEL 108 MEQ/L (98-107); CREATININE FOR GFR 0.64 MG/DL (0.55-1.30); GLOMERULAR FILTRATION RATE > 60.0 (>60); GLUCOSE, FASTING 92 MG/DL (70-100); LIPASE 98 U/L (73-393); POTASSIUM SERUM 4.1 MEQ/L (3.5-5.1); SODIUM LEVEL 143 MEQ/L (136-145); TOTAL PROTEIN 7.6 GM/DL (6.4-8.2)
[2017-07-30] MEDS: CIPROFLOXACIN 500 MG TAB PO (03:15)
[2017-07-30] MEDS: traMADol 50 MG TAB (BULK 4 TAB ED) PO (03:45)
== END 2017-07-30 03:59 | disposition home or self-care (01) ==
LOC: M ED 22:48
DX: N39.0 Urinary tract infection, site not specified (principal); Z87.442 Personal history of urinary calculi; Z88.0 Allergy status to penicillin; Z88.8 Allergy status to other drugs, medicaments and biological substances; F17.210 Nicotine dependence, cigarettes, uncomplicated
CPT/HCPCS: J1885

== ENCOUNTER → 2017-08-21 | Outpatient (REF) | payer OTHER ==
[2017-08-21 23:03] LABS: INFLUENZA A AMPLIFICATION NEGATIVE (NEGATIVE); INFLUENZA B AMPLIFICATION NEGATIVE (NEGATIVE)
== END ==
LOC: M LAB REF 15:13
DX: J11.1 Influenza due to unidentified influenza virus with other respiratory manifestations (principal)
CPT/HCPCS: 87502

== ENCOUNTER 2017-09-29 18:42 | Emergency (ER) | payer OTHER ==
[2017-09-29 19:04] LABS: CONTROL LINE UCG INT CTR LINE PRESENT; URINE PREG TEST NEGATIVE (NEGATIVE)
[2017-09-29 19:12] LABS: APPEARANCE, URINE HAZY (CLEAR); BACTERIA, URINE AUTO 2+ (NEGATIVE); BILIRUBIN, URINE AUTO NEGATIVE (NEGATIVE); BLOOD, URINE BLOOD NEGATIVE (NEGATIVE); COLOR, URINE YELLOW (YELLOW); GLUCOSE, URINE (UA) AUTO NEGATIVE (NEGATIVE); KETONE, URINE AUTO NEGATIVE (NEGATIVE); LEUKOCYTE ESTERASE, URINE AUTO 2+ (NEGATIVE); MUCUS, URINE SMALL (NEGATIVE); NITRITE, URINE AUTO NEGATIVE (NEGATIVE); PROTEIN, URINE AUTO NEGATIVE (NEGATIVE); RBC, URINE AUTO 7 /HPF (0-3); SQUAMOUS EPITHELIAL CELL UR AU 1 /HPF (0-6); UROBILINOGEN, URINE AUTO 0.2 mg/dL (0.0-2.0); WBC, URINE AUTO 117 /HPF (0-3)
[2017-09-29] MEDS: NS 500 ML IV (19:15)
[2017-09-29] MEDS: KETOROLAC 30 MG/ML VIAL (J1885) IV (19:16)
[2017-09-29 19:26] LABS: BASO % 0.4 % (0.0-1.0); EOS # 0.1 10^3/uL (0.0-0.50); HEMATOCRIT 41.2 % (36.0-47.0); HEMOGLOBIN 13.4 g/dl (12.0-15.5); IMMATURE GRANULOCYTE % 0.3 % (0-3.0); LYMPH # 2.7 10^3/uL (1.5-6.5); LYMPH % 26.6 % (24.0-44.0); MEAN CORPUSCULAR HEMOGLOBIN 27.9 pg (27.0-33.0); MEAN CORPUSCULAR HGB CONC 32.5 g/dl (32.0-36.5); MEAN CORPUSCULAR VOLUME 85.8 fl (80.0-96.0); MONO # 0.9 10^3/uL (0.0-0.8); MONO % 8.7 % (0.0-5.0); NEUTROPHILS # 6.3 10^3/uL (1.8-7.7); PLATELET COUNT, AUTOMATED 321 10^3/uL (150-450); RED CELL DISTRIBUTION WIDTH 12.6 % (11.5-14.5)
[2017-09-29 19:52] LABS: ALBUMIN 4.2 GM/DL (3.2-5.2); ALBUMIN/GLOBULIN RATIO 1.11 (1.00-1.93); ALKALINE PHOSPHATASE 64 U/L (45-117); ALT/SGPT 14 U/L (12-78); ANION GAP 7 MEQ/L (8-16); AST/SGOT 11 U/L (7-37); BILIRUBIN,DIRECT < 0.1 MG/DL (0.0-0.2); BILIRUBIN,TOTAL 0.2 MG/DL (0.2-1.0); BLOOD UREA NITROGEN 16 MG/DL (7-18); CALCIUM LEVEL 8.7 MG/DL (8.5-10.1); CARBON DIOXIDE LEVEL 27 MEQ/L (21-32); CHLORIDE LEVEL 107 MEQ/L (98-107); CREATININE FOR GFR 0.74 MG/DL (0.55-1.30); GLOMERULAR FILTRATION RATE > 60.0 (>60); GLUCOSE, FASTING 90 MG/DL (70-100); LIPASE 59 U/L (73-393); POTASSIUM SERUM 3.6 MEQ/L (3.5-5.1); SODIUM LEVEL 141 MEQ/L (136-145)
[2017-09-29] MEDS: MORPHINE 4 MG/ML 1ML VIAL (J2270) IV (21:02)
== END 2017-09-29 21:59 | disposition home or self-care (01) ==
LOC: M ED 18:42
DX: N39.0 Urinary tract infection, site not specified (principal); Z87.440 Personal history of urinary (tract) infections; Z87.442 Personal history of urinary calculi; Z79.899 Other long term (current) drug therapy; Z88.0 Allergy status to penicillin; F17.210 Nicotine dependence, cigarettes, uncomplicated
CPT/HCPCS: J2270

== ENCOUNTER 2017-10-08 15:44 | Emergency (ER) | payer OTHER ==
[2017-10-08 18:15] LABS: CONTROL LINE UCG INT CTR LINE PRESENT; URINE PREG TEST NEGATIVE (NEGATIVE)
[2017-10-08] MEDS: NS 1,000 ML IV ×2 (18:15)
[2017-10-08 18:17] LABS: APPEARANCE, URINE HAZY (CLEAR); BACTERIA, URINE AUTO 2+ (NEGATIVE); BILIRUBIN, URINE AUTO NEGATIVE (NEGATIVE); BLOOD, URINE BLOOD NEGATIVE (NEGATIVE); COLOR, URINE YELLOW (YELLOW); GLUCOSE, URINE (UA) AUTO NEGATIVE (NEGATIVE); KETONE, URINE AUTO NEGATIVE (NEGATIVE); LEUKOCYTE ESTERASE, URINE AUTO 3+ (NEGATIVE); MUCUS, URINE SMALL (NEGATIVE); NITRITE, URINE AUTO NEGATIVE (NEGATIVE); PROTEIN, URINE AUTO NEGATIVE (NEGATIVE); RBC, URINE AUTO 15 /HPF (0-3); SPECIFIC GRAVITY URINE AUTO 1.018 (1.002-1.035); SQUAMOUS EPITHELIAL CELL UR AU 4 /HPF (0-6); UROBILINOGEN, URINE AUTO 0.2 mg/dL (0.0-2.0); WBC, URINE AUTO 54 /HPF (0-3)
[2017-10-08 18:38] LABS: BASO % 0.3 % (0.0-1.0); EOS # 0.2 10^3/uL (0.0-0.50); EOS % 3.4 % (0.0-3.0); HEMATOCRIT 39.5 % (36.0-47.0); LYMPH # 2.1 10^3/uL (1.5-6.5); LYMPH % 31.1 % (24.0-44.0); MEAN CORPUSCULAR HGB CONC 32.9 g/dl (32.0-36.5); MEAN CORPUSCULAR VOLUME 84.9 fl (80.0-96.0); MONO # 0.8 10^3/uL (0.0-0.8); MONO % 11.8 % (0.0-5.0); NEUTROPHILS # 3.6 10^3/uL (1.8-7.7); NEUTROPHILS % 53.4 % (36.0-66.0); PLATELET COUNT, AUTOMATED 233 10^3/uL (150-450); RED BLOOD COUNT 4.65 10^6/uL (4.00-5.40); RED CELL DISTRIBUTION WIDTH 12.9 % (11.5-14.5); WHITE BLOOD COUNT 6.8 10^3/uL (4.0-10.0)
[2017-10-08 19:03] LABS: ANION GAP 6 MEQ/L (8-16); BLOOD UREA NITROGEN 13 MG/DL (7-18); CALCIUM LEVEL 8.7 MG/DL (8.5-10.1); CARBON DIOXIDE LEVEL 26 MEQ/L (21-32); CHLORIDE LEVEL 109 MEQ/L (98-107); CREATININE FOR GFR 0.68 MG/DL (0.55-1.30); GLOMERULAR FILTRATION RATE > 60.0 (>60); GLUCOSE, FASTING 80 MG/DL (70-100); POTASSIUM SERUM 3.8 MEQ/L (3.5-5.1); SODIUM LEVEL 141 MEQ/L (136-145)
[2017-10-08] MEDS: ONDANSETRON 4MG/2ML VIAL (J2405) IV ×2 (19:03)
[2017-10-08] MEDS: MORPHINE 4 MG/ML 1ML VIAL/SYRINGE (J2270) IV ×2 (19:04)
[2017-10-08] MEDS: CIPROFLOXACIN 500 MG TAB PO ×2 (20:30)
== END 2017-10-08 20:44 | disposition home or self-care (01) ==
LOC: M ED 15:44
DX: N30.01 Acute cystitis with hematuria (principal); N30.21 Other chronic cystitis with hematuria; F17.210 Nicotine dependence, cigarettes, uncomplicated; Z88.0 Allergy status to penicillin; Z88.4 Allergy status to anesthetic agent; Z79.2 Long term (current) use of antibiotics; Z79.899 Other long term (current) drug therapy
CPT/HCPCS: J2270

== ENCOUNTER 2017-12-18 15:55 | Emergency (ER) | payer OTHER, MEDICAID, SELFPAY ==
[2017-12-18] MEDS: MORPHINE 4 MG/ML 1ML VIAL/SYRINGE (J2270) IV (16:58)
[2017-12-18] MEDS: NS 1,000 ML IV (16:59)
[2017-12-18 17:05] LABS: BASO % 0.5 % (0.0-1.0); EOS # 0.1 10^3/uL (0.0-0.50); EOS % 1.6 % (0.0-3.0); HEMATOCRIT 39.9 % (36.0-47.0); HEMOGLOBIN 13.3 g/dl (12.0-15.5); IMMATURE GRANULOCYTE % 0.3 % (0-3.0); LYMPH % 27.5 % (24.0-44.0); MEAN CORPUSCULAR HEMOGLOBIN 28.7 pg (27.0-33.0); MEAN CORPUSCULAR HGB CONC 33.3 g/dl (32.0-36.5); MEAN CORPUSCULAR VOLUME 86.2 fl (80.0-96.0); MONO # 0.7 10^3/uL (0.0-0.8); MONO % 8.9 % (0.0-5.0); NEUTROPHILS # 4.5 10^3/uL (1.8-7.7); NEUTROPHILS % 61.2 % (36.0-66.0); PLATELET COUNT, AUTOMATED 270 10^3/uL (150-450); RED BLOOD COUNT 4.63 10^6/uL (4.00-5.40); WHITE BLOOD COUNT 7.4 10^3/uL (4.0-10.0)
[2017-12-18 17:09] LABS: KETONE, URINE AUTO RFX TRACE mg/dL (NEGATIVE); LEUKOCYTE ESTERASE UR AUTO RFX 3+ (NEGATIVE); MUCUS, URINE RFX SMALL (NEGATIVE); NITRITE, URINE AUTO RFX NEGATIVE (NEGATIVE); RBC, URINE AUTO RFX 6 /HPF (0-3); SPECIFIC GRAVITY UR AUTO RFX 1.019 (1.002-1.035); SQUAM EPITHELIAL CELL UR AURFX 3 /HPF (0-6); WBC, URINE AUTO RFX 51 /HPF (0-3)
[2017-12-18 17:37] LABS: ANION GAP 8 MEQ/L (8-16); BLOOD UREA NITROGEN 16 MG/DL (7-18); CALCIUM LEVEL 8.5 MG/DL (8.5-10.1); CARBON DIOXIDE LEVEL 28 MEQ/L (21-32); CHLORIDE LEVEL 106 MEQ/L (98-107); CREATININE FOR GFR 0.69 MG/DL (0.55-1.30); GLOMERULAR FILTRATION RATE > 60.0 (>60); GLUCOSE, FASTING 74 MG/DL (70-100); HCG, SERUM QUANTITATIVE < 1.0 MIU/ML; POTASSIUM SERUM 3.7 MEQ/L (3.5-5.1); SODIUM LEVEL 142 MEQ/L (136-145)
[2017-12-18] MEDS: CIPROFLOXACIN 500 MG TAB PO (18:02)
== END 2017-12-18 18:06 | disposition home or self-care (01) ==
LOC: M ED 15:55
DX: N39.0 Urinary tract infection, site not specified (principal); Z88.8 Allergy status to other drugs, medicaments and biological substances; Z88.0 Allergy status to penicillin; Z79.899 Other long term (current) drug therapy
CPT/HCPCS: J2270

== ENCOUNTER 2018-07-19 19:28 | Emergency (ER) | payer OTHER ==
[~2018-07-19] VITALS: Ht 175.3 cm; Wt 63.2 kg
[~2018-07-19 19:28] MED LIST changes: +AMBI10TA PO; +FLOM0.4C39 PO; -FLOM5CAP PO; -GABA-283 PO; +GABA-845 PO; +HYDR-3716 PO; +LISI10TA4 PO; +MACR100C43 PO; +MIRA3350 PO; +NITR-67 PO; +NITR100C39 PO
[2018-07-19] MEDS ORDERED: LISI10TA4 (19:42)
[2018-07-19] MEDS ORDERED: PREN1CHW4 PO (21:31)
[2018-07-19 21:48] LABS: BASO % 0.3 % (0.0-1.0); EOS # 0.2 10^3/uL (0.0-0.50); EOS % 2.9 % (0.0-3.0); HEMATOCRIT 37.5 % (36.0-47.0); HEMOGLOBIN 12.4 g/dl (12.0-15.5); LYMPH # 2.4 10^3/uL (1.5-6.5); MEAN CORPUSCULAR HEMOGLOBIN 28.3 pg (27.0-33.0); MEAN CORPUSCULAR HGB CONC 33.1 g/dl (32.0-36.5); MEAN CORPUSCULAR VOLUME 85.6 fl (80.0-96.0); MONO # 0.7 10^3/uL (0.0-0.8); MONO % 9.7 % (0.0-5.0); NEUTROPHILS # 3.5 10^3/uL (1.8-7.7); NEUTROPHILS % 51.8 % (36.0-66.0); PLATELET COUNT, AUTOMATED 256 10^3/uL (150-450); RED BLOOD COUNT 4.38 10^6/uL (4.00-5.40); WHITE BLOOD COUNT 6.8 10^3/uL (4.0-10.0)
[2018-07-19 22:31] LABS: ALBUMIN 3.5 GM/DL (3.2-5.2); ALT/SGPT 14 U/L (12-78); BILIRUBIN,DIRECT 0.1 MG/DL (0.0-0.2); BILIRUBIN,TOTAL 0.2 MG/DL (0.2-1.0); BLOOD UREA NITROGEN 11 MG/DL (7-18); CALCIUM LEVEL 8.2 MG/DL (8.5-10.1); CARBON DIOXIDE LEVEL 25 MEQ/L (21-32); CHLORIDE LEVEL 104 MEQ/L (98-107); CREATININE FOR GFR 0.59 MG/DL (0.55-1.30); GLOMERULAR FILTRATION RATE > 60.0 (>60); GLUCOSE, FASTING 79 MG/DL (70-100); HCG, SERUM QUANTITATIVE 5609 MIU/ML; SODIUM LEVEL 137 MEQ/L (136-145); TOTAL PROTEIN 6.4 GM/DL (6.4-8.2)
[2018-07-19] MEDS ORDERED: NITROFURANTOIN (MACROBID) 100 MG CAP PO ONE (22:45)
[2018-07-19] MEDS ORDERED: MACR100C43 PO (22:48)
[2018-07-19] MEDS ORDERED: LABE10TAB PO (22:48)
[2018-07-19 23:03] VITALS: BP 130/79
[2018-07-21] MEDS ORDERED: KEFL500C17 PO (08:47)
--- NOTE | 2018-07-21 09:09 | ECGEPIP ---
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
== END 2018-07-19 23:05 | disposition home or self-care (01) ==
LOC: M ED 19:28
DX: N39.0 Urinary tract infection, site not specified (principal); I10 Essential (primary) hypertension; Z88.0 Allergy status to penicillin; Z88.8 Allergy status to other drugs, medicaments and biological substances; Z88.4 Allergy status to anesthetic agent; Z79.899 Other long term (current) drug therapy

== ENCOUNTER 2018-08-16 05:14 | Emergency (ER) | payer OTHER ==
[~2018-08-16] VITALS: Ht 175.3 cm; Wt 63.6 kg
[2018-08-16 05:14] VITALS: BP 137/78
[~2018-08-16 05:14] MED LIST changes: +KEFL500C17 PO; +LABE10TAB PO; +LISI10TA4; +PREN1CHW4 PO
[2018-08-16 06:12] LABS: INFLUENZA A AMPLIFICATION NEGATIVE (NEGATIVE); INFLUENZA B AMPLIFICATION NEGATIVE (NEGATIVE)
[2018-08-16] MEDS ORDERED: ACETAMINOPHEN TAB 650MG DOSE (2X325MG) PO ONE (06:30)
[2018-08-16] MEDS ORDERED: OSEL75CA PO (07:41)
[2018-08-16] MEDS ORDERED: KEFL500C17 PO (07:41)
[2018-08-16] MEDS ORDERED: OSELTAMIVIR PHOSPHATE 75 MG CAP (TAMIFLU) PO ONE (07:45)
== END 2018-08-16 08:21 | disposition home or self-care (01) ==
LOC: M ED 05:14
DX: O99.511 Diseases of the respiratory system complicating pregnancy, first trimester (principal); J02.0 Streptococcal pharyngitis; Z20.828 Contact with and (suspected) exposure to other viral communicable diseases; O99.341 Other mental disorders complicating pregnancy, first trimester; F91.3 Oppositional defiant disorder; F98.8 Other specified behavioral and emotional disorders with onset usually occurring in childhood and adolescence; O99.331 Smoking (tobacco) complicating pregnancy, first trimester; F17.210 Nicotine dependence, cigarettes, uncomplicated; Z88.4 Allergy status to anesthetic agent; Z88.0 Allergy status to penicillin; Z3A.10 10 weeks gestation of pregnancy; Z79.899 Other long term (current) drug therapy; Z87.442 Personal history of urinary calculi

== ENCOUNTER 2018-09-14 21:22 | Emergency (ER) | payer OTHER ==
[~2018-09-14] VITALS: Ht 175.3 cm; Wt 61.4 kg
[~2018-09-14 21:22] MED LIST changes: +OSEL75CA PO
[2018-09-14 22:42] LABS: BASO % 0.2 % (0.0-1.0); EOS # 0.1 10^3/uL (0.0-0.50); EOS % 0.7 % (0.0-3.0); HEMATOCRIT 35.2 % (36.0-47.0); HEMOGLOBIN 12.1 g/dl (12.0-15.5); LYMPH # 1.8 10^3/uL (1.5-6.5); LYMPH % 14.5 % (24.0-44.0); MEAN CORPUSCULAR HEMOGLOBIN 28.5 pg (27.0-33.0); MEAN CORPUSCULAR HGB CONC 34.4 g/dl (32.0-36.5); MEAN CORPUSCULAR VOLUME 82.8 fl (80.0-96.0); MONO # 0.8 10^3/uL (0.0-0.8); MONO % 6.4 % (0.0-5.0); NEUTROPHILS # 9.5 10^3/uL (1.8-7.7); PLATELET COUNT, AUTOMATED 209 10^3/uL (150-450); RED BLOOD COUNT 4.25 10^6/uL (4.00-5.40); WHITE BLOOD COUNT 12.1 10^3/uL (4.0-10.0)
[2018-09-14 22:52] LABS: APPEARANCE, URINE HAZY (CLEAR); BACTERIA, URINE AUTO 2+ (NEGATIVE); BILIRUBIN, URINE AUTO NEGATIVE (NEGATIVE); BLOOD, URINE BLOOD 3+ (NEGATIVE); COLOR, URINE YELLOW (YELLOW); GLUCOSE, URINE (UA) AUTO NEGATIVE (NEGATIVE); KETONE, URINE AUTO 1+ mg/dL (NEGATIVE); LEUKOCYTE ESTERASE, URINE AUTO 3+ (NEGATIVE); MUCUS, URINE SMALL (NEGATIVE); NITRITE, URINE AUTO NEGATIVE (NEGATIVE); PROTEIN, URINE AUTO NEGATIVE (NEGATIVE); RBC, URINE AUTO 10 /HPF (0-3); SPECIFIC GRAVITY URINE AUTO 1.009 (1.002-1.035); SQUAMOUS EPITHELIAL CELL UR AU 1 /HPF (0-6); UROBILINOGEN, URINE AUTO 0.2 mg/dL (0.0-2.0); WBC, URINE AUTO 75 /HPF (0-3)
[2018-09-14] MEDS ORDERED: NITR50CA40 PO (23:28)
[2018-09-14] MEDS ORDERED: NITROFURANTOIN (MACROBID) 100 MG CAP PO ONE (23:30)
--- NOTE | 2018-09-14 23:42 | REPVR ---
EXAM: US , Limited EXAM DATE/TIME: 09/14/2018 10:48 PM CLINICAL HISTORY: 23 years old, female; Pain; Other: Vaginal spotting; Gestational age or lmp: 15w 3d; ; Additional info: Bleeding, preg TECHNIQUE: Imaging protocol: Real-time ultrasound of the maternal uterus with image documentation. Exam focused on the clinical indication. COMPARISON: RENAL US 12/18/2017 5:06 PM FINDINGS: GESTATION: Gestation: Single intrauterine fetus. Heart rate: heartbeat of 162 beats per minute. Presentation: Cephalic presentation. Placenta: Posterior placenta. Amniotic fluid: The amount of amniotic fluid appears normal visually. MATERNAL: Cervix: The cervix is closed measuring 4.0 cm. IMPRESSION: Single live intrauterine fetus in cephalic presentation. Electronically signed by: Konstantin Buck On 09/14/2018 23:42:52 PM
[2018-09-14 23:45] VITALS: BP 131/70
[2018-09-15 00:24] LABS: CHLAMYDIA DNA AMPLIFICATION NEGATIVE (NEGATIVE); GC DNA AMPLIFICATION NEGATIVE (NEGATIVE)
== END 2018-09-14 23:46 | disposition home or self-care (01) ==
LOC: M ED 21:22
DX: O20.9 Hemorrhage in early pregnancy, unspecified (principal); O99.012 Anemia complicating pregnancy, second trimester; O23.42 Unspecified infection of urinary tract in pregnancy, second trimester; Z88.0 Allergy status to penicillin; Z88.8 Allergy status to other drugs, medicaments and biological substances; O99.332 Smoking (tobacco) complicating pregnancy, second trimester; F17.210 Nicotine dependence, cigarettes, uncomplicated; Z3A.15 15 weeks gestation of pregnancy

== ENCOUNTER → 2018-10-25 | Outpatient (CLI) | payer OTHER, BC ==
[~2018-10-25] MED LIST changes: +HYDR-3715 PO; +LABE100T36 PO; -LIDO1SOL7 IC; +LIDO1SOL8 IC; +NITR50CA40 PO; -NORC1TAB4 PO; +NORC1TAB7 PO; -NORCOTAB PO; +PREN29TA4 PO
--- NOTE | 2018-10-25 17:10 | REP ---
HISTORY: anatomy. Multiple sonographic images of the gravid uterus show a single living intrauterine gestation in variable positions. Doppler interrogation of the heart shows a heart rate of 167 beats per minute. The placenta is posterior fundal and not low lying. The subjective amniotic fluid volume is within normal limits. The cervix measures 4.7 cm in length and is closed. BPD 4.3 cm = 18 weeks 6 days HC 16.8 cm = 19 weeks 3 days AC 15.3 cm = 20 weeks 4 days FL 3.0 cm = 19 weeks 2 days The estimated weight is 319 grams, which is at the 4th percentile for a 21 week 2 day gestational age. Structures visualized as unremarkable are as follows: Thalami, cavum septum pellucidum, cerebellum, cisterna magna, cerebral ventricles, a small choroid plexus cyst was seen on the right, spine, stomach, kidneys, urinary bladder, four chamber heart, outflow tracts, extremities, three vessel umbilical cord, cord insertion, and upper lip. IMPRESSION: Single living intrauterine gestation as described above with an estimated gestational age of 19 weeks 4 days via composite criteria and an estimated date of delivery of 03/17/2019 by today's exam. No anomalies were detected, however, I recommend a followup examination to ensure resolution of the right-sided choroid plexus cyst. Electronically Signed by Riley Aguilar DO 10/25/2018 05:14 P
== END ==
LOC: M RAD 11:12 → MERGE 11:30
PROVIDERS: ATTEND Obstetrics & Gynecology
DX: Z34.82 Encounter for supervision of other normal pregnancy, second trimester (principal); Z3A.19 19 weeks gestation of pregnancy

== ENCOUNTER 2018-10-26 20:10 | Emergency (ER) | payer BC, OTHER ==
[2018-10-26] MEDS ORDERED: MORPHINE 4 MG/ML 1ML VIAL/SYRINGE (J2270) IV ONE (21:45)
[2018-10-26 22:43] LABS: BASO % 0.1 % (0.0-1.0); EOS # 0.1 10^3/uL (0.0-0.50); EOS % 0.4 % (0.0-3.0); HEMATOCRIT 36.6 % (36.0-47.0); HEMOGLOBIN 12.2 g/dl (12.0-15.5); LYMPH # 1.5 10^3/uL (1.5-6.5); LYMPH % 12.7 % (24.0-44.0); MEAN CORPUSCULAR HGB CONC 33.3 g/dl (32.0-36.5); MEAN CORPUSCULAR VOLUME 87.1 fl (80.0-96.0); MONO # 0.8 10^3/uL (0.0-0.8); MONO % 6.4 % (0.0-5.0); NEUTROPHILS # 9.5 10^3/uL (1.8-7.7); NEUTROPHILS % 80.1 % (36.0-66.0); PLATELET COUNT, AUTOMATED 230 10^3/uL (150-450); WHITE BLOOD COUNT 11.9 10^3/uL (4.0-10.0)
[2018-10-26 23:05] LABS: ALBUMIN 3.3 GM/DL (3.2-5.2); ALT/SGPT 13 U/L (12-78); BILIRUBIN,TOTAL 0.2 MG/DL (0.2-1.0); BLOOD UREA NITROGEN 9 MG/DL (7-18); CALCIUM LEVEL 8.6 MG/DL (8.5-10.1); CARBON DIOXIDE LEVEL 27 MEQ/L (21-32); CHLORIDE LEVEL 105 MEQ/L (98-107); CREATININE FOR GFR 0.53 MG/DL (0.55-1.30); GLOMERULAR FILTRATION RATE > 60.0 (>60); GLUCOSE, FASTING 82 MG/DL (70-100); SODIUM LEVEL 138 MEQ/L (136-145); TOTAL PROTEIN 6.8 GM/DL (6.4-8.2)
--- NOTE | 2018-10-26 23:07 | REPVR ---
EXAM: US Retroperitoneal Limited, Kidneys EXAM DATE/TIME: 10/26/2018 10:18 PM CLINICAL HISTORY: 23 years old, female; Abdominal pain; Flank; Right lower quadrant (rlq); ; Additional info: HX of stones, rlq pain, preg TECHNIQUE: Imaging protocol: Real-time ultrasound of the retroperitoneum with image documentation. Examination was focused on the kidneys. COMPARISON: RENAL US 10/11/2018 4:25 PM FINDINGS: Right kidney: The right kidney measures 10.4 CM in length by 4.4 CM in thickness. There is no evidence of hydronephrosis of the right kidney. There is only a small amount of urine in the urinary bladder and the urinary bladder cannot be completely evaluated. The left kidney measures 11.9 CM in length by 5.5 CM in thickness. Left kidney: There is no evidence of hydronephrosis left kidney. Appendix: The appendix was not evaluated during this examination. Only the kidneys evaluated. IMPRESSION: No evidence of hydronephrosis right or left kidney. Electronically signed by: Anshu Bowie On 10/26/2018 23:07:26 PM
--- NOTE | 2018-10-26 23:20 | REPVR ---
EXAM: US Pelvis Limited, Transabdominal (RLQ) EXAM DATE/TIME: 10/26/2018 10:18 PM CLINICAL HISTORY: 23 years old, female; Pelvic pain; Additional info: ? Appe, rlq pain, 19w preg TECHNIQUE: Imaging protocol: Real-time transabdominal pelvic ultrasound with image documentation. Limited exam. COMPARISON: None FINDINGS: This examination is limited to the right lower quadrant. There is extensive shadowing in the right lower quadrant, likely from bowel gas. No free fluid is seen within the right lower quadrant. The cecum is not visualized. The appendix is not visualized. Appendicitis cannot be excluded by this exam, without identification of the appendix. The technologist however reports, the patient did not have pain with transducer pressure, nor rebound tenderness. No visible mesenteric fatty inflammation or enlarged ileocolic lymph nodes are seen. IMPRESSION: The appendix is not visualized. Appendicitis cannot be excluded by this exam. Findings discussed above in detail. Electronically signed by: Uri Todd On 10/26/2018 23:20:26 PM
--- NOTE | 2018-10-26 23:43 | REPVR ---
EXAM: US After First Trimester, Transabdominal EXAM DATE/TIME: 10/26/2018 10:18 PM CLINICAL HISTORY: 23 years old, female; complicated by abdominal or pelvic pain; Right lower quadrant; Second trimester; Gestational age or lmp: 19w 6d; ; Additional info: Rlq pain, 19w preg. The patient's last menstrual period is 06/07/2018. TECHNIQUE: Imaging protocol: Real-time transabdominal obstetrical ultrasound of the maternal pelvis and a second or third trimester with image documentation. COMPARISON: US OBS SINGEL GEST 10/25/2018 11:32 AM FINDINGS: The maternal cervix has a length of 3.3 cm. No endocervical fluid is seen. The internal os appears closed. The maternal ovaries are not identified. No obvious free fluid is seen within the visualized maternal pelvis. Again noted is a single intrauterine , on the current exam in breech presentation. motion is identified by the technologist. cardiac activity is seen at 165 beats per minute. Subjectively amniotic fluid volume appears to be within normal limits. A 5.3 mm left lateral ventricular choroid plexus cyst is seen. The nose and lips are not adequately visualized on the current exam although the face profile is visualized. The stomach is noted to be left-sided. diaphragm appears intact. The hydronephrosis is not seen. Fluid is seen within the urinary bladder. cranium is identified and appears normal. No nuchal cord is identified. Complete anatomy is not evaluated on this examination, however more detailed anatomy is obtained on the prior day examination. Cephalic index is 81.5, within normal limits. Head circumference to abdominal circumference is 1.10, within normal limits. Femur length to biparietal diameter is 62.3. Femur length to head circumference is 17.1, within normal limits. Femur length to abdominal circumference is 18.8. The biparietal diameter is 4.7, which is in the 53rd percentile. Head circumference is 17.10, which is in the 23rd percentile. Abdominal circumference is 15.6, which is at the 65th percentile. Femur length is 2.93 which is at the 10th percentile. Humerus length is 2.89 which is in the 25th percentile. Estimated gestational age based upon sonographic evaluation is 19 weeks and 6 days, with estimated date of delivery of 03/16/2019. Estimated weight is 323 g, plus or -48 g. Estimated weight is within the 35th percentile. The placenta is posterior in location without evidence of previa or abruption and is grade 0. No retroplacental hematoma is seen. IMPRESSION: Single intrauterine , currently in breech presentation of approximately 19 weeks and 6 days gestation, demonstrating adequate growth compared to the prior study. A 5.5 mm lateral ventricular choroid plexus cyst is identified. Other findings discussed above in detail. Electronically signed by: Uri Todd On 10/26/2018 23:42:30 PM
[2018-10-27 00:08] VITALS: BP 94/55
== END 2018-10-27 00:31 | disposition home or self-care (01) ==
LOC: M ED 20:10
DX: O23.42 Unspecified infection of urinary tract in pregnancy, second trimester (principal); Z3A.19 19 weeks gestation of pregnancy; O10.012 Pre-existing essential hypertension complicating pregnancy, second trimester; O99.342 Other mental disorders complicating pregnancy, second trimester; Z87.442 Personal history of urinary calculi; Z96.0 Presence of urogenital implants; Z79.899 Other long term (current) drug therapy; Z88.0 Allergy status to penicillin; Z88.4 Allergy status to anesthetic agent
CPT/HCPCS: 76775; 76811; 76857; 80053; 81001; 85025; 87088; 87186; 96374; 99284; J2270

== ENCOUNTER 2018-10-31 02:25 | Outpatient (CLI) | payer BC, OTHER ==
[~2018-10-31] VITALS: Ht 175.3 cm; Wt 67.3 kg
[2018-10-31 02:47] VITALS: BP 124/77
--- NOTE | 2018-10-31 08:03 | IPN ---
DATE: 10/31/2018 Ambika is a 23-year-old 1, para 0 at 20-1/7 weeks gestation, EDC 03/19/2019 based on last menstrual period and confirmed by first trimester ultrasound. She presents to labor and delivery with a complaint of question rupture of membranes at approximately 02:15. She reports that she got up to empty her bladder and voided and felt that it was just too significant amount to be urine, uncertain if he came from her vagina or her urethra. She does deny contractions, vaginal bleeding. Denies continued leakage of fluid since that episode. She does report the fetus is active. care was initiated at [facility] in the first trimester. care complicated by chronic hypertension, currently on labetalol 100 mg daily. Extensive history of urinary problems and multiple stones, urethral stricture occlusion, status post pre implanted of right ureter. She is currently on Macrobid 100 mg daily prophylactically and currently has a right renal stone, as well as being noncompliant with her care. OBSTETRICAL HISTORY: Primigravida. OBSTETRIC LABORATORIES: None. She is yet to have her labs drawn as ordered. PAST MEDICAL HISTORY: Chronic hypertension and seizures as a side effect from certain medications. Seasonal allergies. Renal stones. SURGERIES: Laparoscopic exploratory, tonsillectomy, ear surgery, kidney stent, urethral reimplantation, nephrostomy tube. SOCIAL HISTORY: The patient is . She does present by herself. She is a smoker. She denies alcohol and drug use. Denies history of sexually transmitted infections. Denies history of abuse physical, sexual and emotional allergies. ALLERGIES: PENICILLIN, PROPOFOL. CURRENT MEDICATIONS: - Zofran as needed - Macrobid 100 mg daily - vitamins - labetalol 100 mg daily - hydrocodone and acetaminophen as needed pain OBJECTIVE: Temperature 95, pulse 111, respirations 18, blood pressure is 124/77. She is alert and oriented times three. She is in no apparent distress. heart rate is 155. Sterile speculum exam: Negative Valsalva, negative pooling, negative Nitrazine, and negative ferning. Cervix is long, thick and closed. No pattern of any contractions. ASSESSMENT: Intrauterine at 20-1/7 weeks. heart rate 155. Not ruptured. PLAN: Discharge the patient home. She is to follow-up for her next scheduled visit, which is today at 11:45. I did printout her lab order and gave it to her to have her labs drawn prior to her appointment today. I did review access to care and danger signs that she should report to her provider. She has had all her questions answered and is agreeable to discharge.
== END 2018-10-31 03:23 | disposition home or self-care (01) ==
LOC: M LDO 02:25
PROVIDERS: ATTEND Advanced Practice Midwife
DX: O26.892 Other specified pregnancy related conditions, second trimester (principal); N89.8 Other specified noninflammatory disorders of vagina; O99.89 Other specified diseases and conditions complicating pregnancy, childbirth and the puerperium; N20.0 Calculus of kidney; Z3A.20 20 weeks gestation of pregnancy
CPT/HCPCS: G0378; G0463

== ENCOUNTER → 2019-01-29 | Outpatient (REF) | payer OTHER ==
[2019-01-29 13:49] LABS: APPEARANCE, URINE HAZY (CLEAR); BACTERIA, URINE AUTO NEGATIVE (NEGATIVE); BILIRUBIN, URINE AUTO NEGATIVE (NEGATIVE); BLOOD, URINE BLOOD 2+ (NEGATIVE); COLOR, URINE YELLOW (YELLOW); GLUCOSE, URINE (UA) AUTO NEGATIVE (NEGATIVE); KETONE, URINE AUTO 2+ mg/dL (NEGATIVE); LEUKOCYTE ESTERASE, URINE AUTO 1+ (NEGATIVE); MUCUS, URINE SMALL (NEGATIVE); NITRITE, URINE AUTO NEGATIVE (NEGATIVE); PROTEIN, URINE AUTO 1+ mg/dL (NEGATIVE); RBC, URINE AUTO 151 /HPF (0-3); SQUAMOUS EPITHELIAL CELL UR AU 1 /HPF (0-6); UROBILINOGEN, URINE AUTO 0.2 mg/dL (0.0-2.0); WBC, URINE AUTO 45 /HPF (0-3)
== END ==
LOC: M LAB REF 13:16
PROVIDERS: ATTEND Advanced Practice Midwife
DX: Z34.82 Encounter for supervision of other normal pregnancy, second trimester (principal)

== ENCOUNTER 2019-03-07 23:24 | Outpatient (CLI) | payer BC, OTHER ==
[~2019-03-07] VITALS: Ht 175.3 cm; Wt 71.5 kg
[~2019-03-07 23:24] MED LIST changes: +NITR1CAP27 PO; -NITR50CA40 PO
[2019-03-08 00:51] LABS: BASO % 0.2 % (0.0-1.0); EOS # 0.1 10^3/uL (0.0-0.5); EOS % 0.7 % (0.0-3.0); HEMOGLOBIN 10.7 g/dl (12.0-15.5); LYMPH # 1.9 10^3/uL (1.5-5.0); LYMPH % 22.3 % (24.0-44.0); MEAN CORPUSCULAR HEMOGLOBIN 28.9 pg (27.0-33.0); MEAN CORPUSCULAR HGB CONC 33.4 g/dl (32.0-36.5); MEAN CORPUSCULAR VOLUME 86.5 fl (80.0-96.0); MONO # 0.8 10^3/uL (0.0-0.8); MONO % 9.5 % (0.0-5.0); NEUTROPHILS # 5.6 10^3/uL (1.5-8.5); NEUTROPHILS % 66.7 % (36.0-66.0); PLATELET COUNT, AUTOMATED 178 10^3/uL (150-450); WHITE BLOOD COUNT 8.4 10^3/uL (4.0-10.0)
[2019-03-08 01:18] LABS: AMPHETAMINES URINE REFLEX NEGATIVE (NEGATIVE); BARBITURATES URINE REFLEX NEGATIVE (NEGATIVE); BENZODIAZEPINES URINE REFLEX PENDING CONFIRMATION (NEGATIVE); CANNABINOIDS URINE REFLEX NEGATIVE (NEGATIVE); COCAINE METABOLITE URINE REFLE NEGATIVE (NEGATIVE); METHADONE URINE REFLEX NEGATIVE (NEGATIVE); PHENCYCLIDINE URINE REFLEX NEGATIVE (NEGATIVE)
[2019-03-08] MEDS ORDERED: ACETAMINOPHEN 500 MG TAB PO PRN (02:00)
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
[2019-03-08 06:38] LABS: OPIATES URINE REFLEX PENDING CONFIRMATION (NEGATIVE)
[2019-03-10 10:51] LABS: HEPATITIS C VIRUS ABY INDEX 0.1 INDEX (<0.8); HIV 1&2 SCREEN CENTAUR NEGATIVE (NEGATIVE); RUBELLA IgG QUALITATIVE IMMUNE (IMMUNE)
[2019-03-12 15:34] LABS: Benzodiazepines Positive (.); GC OH-Alprazola 514 ng/mL (Cutoff=300); OH-Alprazolam Positive (.); Opiates Negative (Cutoff=200)
== END 2019-03-08 03:15 | disposition home or self-care (01) ==
LOC: M LDO 23:24
PROVIDERS: ATTEND Advanced Practice Midwife
DX: O99.89 Other specified diseases and conditions complicating pregnancy, childbirth and the puerperium (principal); Z3A.38 38 weeks gestation of pregnancy; O16.3 Unspecified maternal hypertension, third trimester
CPT/HCPCS: 36415; 59025; 76816; 76819; 76820; 80307; 85025; 85460; 86762; 86780; 86803; 86850; 87081; 87088; 87186; 87340; 87389; G0378; G0463; G0480

== ENCOUNTER 2019-03-08 22:06 | Inpatient (IN) | payer BC, OTHER ==
[~2019-03-08] VITALS: Ht 175.3 cm; Wt 72.0 kg
[~2019-03-08 22:06] MED LIST changes: -NITR1CAP27 PO; +NITR50CA40 PO
[2019-03-08 22:29] VITALS: BP 132/84
[2019-03-08 23:34] VITALS: BP 116/83
[2019-03-08] MEDS ORDERED: LACTATED RINGER'S 1000 ML IV STA (23:36)
[2019-03-08] MEDS ORDERED: PROMETHAZINE INJ 25 MG/ML VIAL (J2550) IV ONE (23:45)
[2019-03-08] MEDS ORDERED: BUTORPHANOL 2 MG/ML INJ (J0595) IV ONE (23:45)
[2019-03-08 23:55] LABS: HEMATOCRIT 33.6 % (36.0-47.0); HEMOGLOBIN 10.9 g/dl (12.0-15.5); MEAN CORPUSCULAR HEMOGLOBIN 27.9 pg (27.0-33.0); MEAN CORPUSCULAR HGB CONC 32.4 g/dl (32.0-36.5); MEAN CORPUSCULAR VOLUME 86.2 fl (80.0-96.0); PLATELET COUNT, AUTOMATED 189 10^3/uL (150-450); WHITE BLOOD COUNT 8.8 10^3/uL (4.0-10.0)
[2019-03-09] VITALS (65 sets, daily range): BP systolic 100–145; BP diastolic 56–93
[2019-03-09 00:17] LABS: ALBUMIN 2.2 GM/DL (3.2-5.2); ALT/SGPT 8 U/L (12-78); BILIRUBIN,TOTAL 0.2 MG/DL (0.2-1.0); BLOOD UREA NITROGEN 10 MG/DL (7-18); CALCIUM LEVEL 8.2 MG/DL (8.5-10.1); CARBON DIOXIDE LEVEL 21 MEQ/L (21-32); CHLORIDE LEVEL 113 MEQ/L (98-107); CREATININE FOR GFR 0.74 MG/DL (0.55-1.30); GLOMERULAR FILTRATION RATE > 60.0 (>60); GLUCOSE, FASTING 77 MG/DL (70-100); POTASSIUM SERUM 4.1 MEQ/L (3.5-5.1); SODIUM LEVEL 143 MEQ/L (136-145); TOTAL PROTEIN 5.8 GM/DL (6.4-8.2)
[2019-03-09] MEDS ORDERED: miSOPROStol 50 MCG 1/2 TAB (S0191) SL SCH (00:30)
[2019-03-09] MEDS: LR 1,000 ML IV SCH ×5 (00:50→21:30)
[2019-03-09] MEDS ORDERED: FENTANYL 2MCG/ML ROPIVACAINE 0.2% IN 0.9% NACL 100ML IVBAG As Ordered ONE (03:15)
[2019-03-09] MEDS: FENTANYL/ROPIVACAINE/NACL BAG 100 ML EPIDURAL SCH ×2 (03:57→10:13)
[2019-03-09] MEDS ORDERED: ePHEDrine SULFATE 25 MG/5 ML(5MG/ML) SYRINGE As Ordered ONE (04:17)
[2019-03-09] MEDS ORDERED: ONDANSETRON 4MG/2ML VIAL (J2405) IV PRN ×2 (06:00→13:15)
[2019-03-09] MEDS ORDERED: EPIDURAL COMMENT XX SCH (06:00)
[2019-03-09] MEDS ORDERED: NALOXONE INJ 0.4 MG/1 ML VIAL (J2310) IV PRN (06:00)
[2019-03-09] MEDS ORDERED: diphenhydrAMINE INJ 50MG/ML VIAL (J1200) IV PRN (06:00)
[2019-03-09] MEDS ORDERED: ePHEDrine SULFATE 25 MG/5 ML(5MG/ML) SYRINGE IV PRN (06:00)
[2019-03-09] MEDS ORDERED: LACTATED RINGER'S 1000 ML IV PRN (06:00)
[2019-03-09] MEDS ORDERED: REFRIGERATOR IV KEYS XX PRN (06:00)
[2019-03-09] MEDS ORDERED: EPIDURAL/PCA KEYS XX PRN (06:00)
[2019-03-09] MEDS ORDERED: OXYTOCIN 30 UNITS IN 0.9% NaCl 500ML IV BAG (J2590) As Ordered ONE (09:53)
[2019-03-09] MEDS ORDERED: ACETAMINOPHEN TAB 650MG DOSE (2X325MG) PO PRN (13:15)
[2019-03-09] MEDS ORDERED: RHOGAM 300 MCG (1500 IU) INJ (J2790) IM SCH (13:15)
[2019-03-09] MEDS ORDERED: MEASLES,MUMPS,RUBELLA VACCINE INJ (MMR-II) (90707) SC SCH (13:15)
[2019-03-09] MEDS ORDERED: PROMETHAZINE 25 MG TAB PO PRN (13:15)
[2019-03-09] MEDS ORDERED: DOCUSATE SODIUM 100 MG CAP PO PRN (13:15)
[2019-03-09] MEDS ORDERED: DIBUCAINE 1% OINTMENT 30GM TOP PRN (13:15)
[2019-03-09] MEDS ORDERED: OXYTOCIN DRIP 30 UNITS in APPROPRIATE DILUENT 1 EA IV SCH (13:30)
[2019-03-09] MEDS: IBUPROFEN 800 MG TAB PO PRN ×2 (14:22→23:50)
[2019-03-09] MEDS: NITROFURANTOIN (MACROBID) 100 MG CAP PO SCH (14:22)
[2019-03-09] MEDS: ACETAMINOPHEN 500 MG TAB PO PRN (17:47)
[2019-03-10 01:49] VITALS: BP 141/93
[2019-03-10] MEDS: LR 1,000 ML IV SCH (05:30)
[2019-03-10] MEDS: IBUPROFEN 600 MG TAB PO PRN ×2 (06:09→14:42)
[2019-03-10 06:23] VITALS: BP 114/68
--- NOTE | 2019-03-10 06:43 | IPNPDOC ---
Text Note Date of Service The patient was seen on 03/10/19. NOTE Day 1 Status post , uncomplicated Subjective Pain is well controlled. Lochia decreasing and minimal. Voiding spontaneously. Tolerating a regular diet. Ambulating without any assistance. Denies any subjective fever/chills/nausea/vomiting/headache/visual changes/shortness of breath/chest pain. Breast feeding. Objective Vitals: Normotensive, normal heart rate, afebrile, adequate urine output. Heart: regular, rate, and rhythm. no murmurs/gallops/rubs Lungs: clear to auscultation bilaterally, no wheezes/crackles/rales/ronchi Abd: soft, nontender, nondistended, uterine fundus is at the umbilicus and firm Ext: no significant edema, nontender, negative Michelle's bilaterally. Assessment/Plan: 23 yo G1 now P1. day 1. Recovering well. Hemodynamically stable, afebrile, good pain control. -Routine care -CPS consultation -Discharge to home tomorrow -Routine infectious, fever, pain, and bleeding precautions reviewed VS,Fishbone, I+O VS, Fishbone, I+O Vital Signs Date Time Temp Pulse Resp B/P (MAP) Pulse Ox O2 Delivery O2 Flow Rate FiO2 03/10/19 06:23 98.3 58 17 114/68 (83) 100 I&O- Last 24 Hours up to 6 AM 03/10/19 06:00 Intake Total 2780.8 ml Output Total 2600 ml Balance 180.8 ml GME ATTESTATION GME ATTESTATION My faculty preceptor for this patient encounter was physically present during the encounter and was fully available. All aspects of the patient interview, examination, medical decision making process, and medical care plan development were reviewed and approved by the faculty preceptor. The faculty preceptor is aware and concurs with the plan as stated in the body of this note and will attest to such by his/her cosignature. BRYSON PATHAK DO Mar 10, 2019 06:43
[2019-03-10] MEDS: PRENATAL VITAMINS CHEWABLE TABLET PO SCH (09:09)
[2019-03-10] MEDS: NITROFURANTOIN (MACROBID) 100 MG CAP PO SCH (09:10)
[2019-03-10] MEDS: LABETALOL 100 MG TAB PO SCH (09:10)
[2019-03-10 09:55] VITALS: BP 116/78
[2019-03-10 14:00] VITALS: BP 135/83
[2019-03-10 18:03] VITALS: BP 129/72
[2019-03-10] MEDS: ACETAMINOPHEN 500 MG TAB PO PRN (20:19)
[2019-03-10 22:12] VITALS: BP 141/84
[2019-03-11] MEDS: IBUPROFEN 800 MG TAB PO PRN (02:20)
[2019-03-11 02:34] VITALS: BP 131/87
[2019-03-11 06:10] VITALS: BP 138/78
[2019-03-11] MEDS: NITROFURANTOIN (MACROBID) 100 MG CAP PO SCH (08:29)
[2019-03-11] MEDS: LABETALOL 100 MG TAB PO SCH (08:29)
[2019-03-11] MEDS: PRENATAL VITAMINS CHEWABLE TABLET PO SCH (08:29)
== END 2019-03-11 12:10 | disposition home or self-care (01) | DRG 560 ==
LOC: M LDO 22:06 → M LDI 22:49 → M OBS 03-09 15:48
PROVIDERS: ADMIT Obstetrics & Gynecology; ATTEND Obstetrics & Gynecology
PROC: 10E0XZZ Delivery of Products of Conception, External Approach (ICD-10-PCS; principal; 2019-03-09)
PROC: 10907ZC Drainage of Amniotic Fluid, Therapeutic from Products of Conception, Via Natural or Artificial Opening (ICD-10-PCS; 2019-03-09)
DX: O10.92 Unspecified pre-existing hypertension complicating childbirth (principal); Z3A.38 38 weeks gestation of pregnancy; Z37.0 Single live birth; Z91.19 Patient's noncompliance with other medical treatment and regimen

== ENCOUNTER 2019-04-02 20:23 | Emergency (ER) | payer BC, OTHER ==
[~2019-04-02] VITALS: Ht 175.3 cm; Wt 65.9 kg
[2019-04-02 20:23] VITALS: BP 149/99
[~2019-04-02 20:23] MED LIST changes: +NITR1CAP27 PO; -NITR50CA40 PO
[2019-04-02] MEDS ORDERED: AMBI10TA PO (20:42)
[2019-04-02 22:26] LABS: HEMATOCRIT 37.4 % (36.0-47.0); HEMOGLOBIN 11.7 g/dl (12.0-15.5); MEAN CORPUSCULAR HEMOGLOBIN 27.9 pg (27.0-33.0); MEAN CORPUSCULAR HGB CONC 31.3 g/dl (32.0-36.5); MEAN CORPUSCULAR VOLUME 89.3 fl (80.0-96.0); PLATELET COUNT, AUTOMATED 273 10^3/uL (150-450); RED BLOOD COUNT 4.19 10^6/uL (4.00-5.40); WHITE BLOOD COUNT 7.9 10^3/uL (4.0-10.0)
[2019-04-02 22:51] LABS: BLOOD UREA NITROGEN 13 MG/DL (7-18); CALCIUM LEVEL 8.5 MG/DL (8.5-10.1); CARBON DIOXIDE LEVEL 32 MEQ/L (21-32); CHLORIDE LEVEL 106 MEQ/L (98-107); GLOMERULAR FILTRATION RATE > 60.0 (>60); GLUCOSE, FASTING 83 MG/DL (70-100); POTASSIUM SERUM 4.2 MEQ/L (3.5-5.1); SODIUM LEVEL 142 MEQ/L (136-145)
--- NOTE | 2019-04-03 00:43 | REPVR ---
PROCEDURE INFORMATION: Exam: CT Abdomen And Pelvis Without Contrast Exam date and time: 04/02/2019 11:16 PM Clinical history: 23 years old, female; Abdominal pain; Flank; Right; Patient HX: Recent post ; Additional info: R flank pain TECHNIQUE: Imaging protocol: Computed tomography of the abdomen and pelvis without contrast. Radiation optimization: All CT scans at this facility use at least one of these dose optimization techniques: automated exposure control; mA and/or kV adjustment per patient size (includes targeted exams where dose is matched to clinical indication); or iterative reconstruction. COMPARISON: CT ABD PELVIS W/O CONTRAST 06/26/2018 4:50 AM FINDINGS: Liver: Normal. No mass. Gallbladder and bile ducts: Normal. No calcified stones. No ductal dilation. Pancreas: Normal. No ductal dilation. Spleen: Normal. No splenomegaly. Adrenals: Normal. No mass. Kidneys and ureters: There are calyceal stones in both kidneys. No obstructing ureteral stones or hydronephrosis. Stomach and bowel: Unremarkable. No obstruction. No mucosal thickening. Appendix: No evidence of appendicitis. Intraperitoneal space: Unremarkable. No free air. No significant fluid collection. Vasculature: Unremarkable. No abdominal aortic aneurysm. Lymph nodes: Unremarkable. No enlarged lymph nodes. Bladder: Calcifications along the posterior surface of the urinary bladder on the right are not changed since the prior exam. Urinary bladder is otherwise unremarkable. Reproductive: Unremarkable as visualized. Bones/joints: Unremarkable. No acute fracture. Soft tissues: Unremarkable. IMPRESSION: 1. Nonobstructing calyceal stones in the kidneys. 2. Stable calcification along the right posterior urinary bladder. 3. No acute findings. Electronically signed by: Rubens Agustin On 04/03/2019 00:43:15 AM
[2019-04-03] MEDS ORDERED: CIPR-249 PO (01:13)
[2019-04-03] MEDS ORDERED: PYRI1TAB5 PO (01:13)
[2019-04-03] MEDS ORDERED: CIPROFLOXACIN 500 MG TAB PO ONE (01:15)
[2019-04-03] MEDS ORDERED: PHENAZOPYRIDINE 100 MG TAB PO ONE (01:15)
[2019-04-03] MEDS ORDERED: KETOROLAC 60 MG/2 ML VIAL (J1885) IM ONE (01:15)
== END 2019-04-03 01:26 | disposition home or self-care (01) ==
LOC: M ED 20:23
DX: N39.0 Urinary tract infection, site not specified (principal); N20.0 Calculus of kidney; Z88.0 Allergy status to penicillin; Z88.8 Allergy status to other drugs, medicaments and biological substances
CPT/HCPCS: 74176; 80048; 81001; 85027; 87088; 87186; 96372; 99283; J1885

== ENCOUNTER → 2019-05-27 | Outpatient (CLI) | payer OTHER | LOC: M OUTALCOH 10:12 | PROVIDERS: ATTEND Psychiatry & Neurology Psychiatry | DX: Z03.89 Encounter for observation for other suspected diseases and conditions ruled out (principal) ==

== ENCOUNTER 2019-06-03 12:59 | Outpatient (RCR) | payer OTHER | END 2019-06-24 | LOC: M OUTALCOH 12:59 | PROVIDERS: ATTEND Psychiatry & Neurology Psychiatry | DX: Z03.89 Encounter for observation for other suspected diseases and conditions ruled out (principal); F17.200 Nicotine dependence, unspecified, uncomplicated ==

== ENCOUNTER → 2019-07-16 | Outpatient (REF) | payer OTHER ==
[2019-07-16 13:35] LABS: AMORPHOUS SEDIMENT SMALL (NEGATIVE); APPEARANCE, URINE HAZY (CLEAR); BACTERIA, URINE AUTO 1+ (NEGATIVE); BILIRUBIN, URINE AUTO NEGATIVE (NEGATIVE); BLOOD, URINE BLOOD 1+ (NEGATIVE); COLOR, URINE YELLOW (YELLOW); GLUCOSE, URINE (UA) AUTO NEGATIVE (NEGATIVE); KETONE, URINE AUTO NEGATIVE (NEGATIVE); LEUKOCYTE ESTERASE, URINE AUTO 2+ (NEGATIVE); MUCUS, URINE SMALL (NEGATIVE); NITRITE, URINE AUTO NEGATIVE (NEGATIVE); PROTEIN, URINE AUTO NEGATIVE (NEGATIVE); RBC, URINE AUTO 2 /HPF (0-3); SPECIFIC GRAVITY URINE AUTO 1.019 (1.002-1.035); SQUAMOUS EPITHELIAL CELL UR AU 4 /HPF (0-6); UROBILINOGEN, URINE AUTO 0.2 mg/dL (0.0-2.0); WBC, URINE AUTO 15 /HPF (0-3)
== END ==
LOC: M SMT 13:07
PROVIDERS: ATTEND Nurse Practitioner Women's Health
DX: R39.198 Other difficulties with micturition (principal)

== ENCOUNTER → 2019-08-27 | Outpatient (CLI) | payer OTHER ==
[~2019-08-27] MED LIST changes: -LIDO1SOL8 IC; +LIDO2SOL17 IC
== END ==
LOC: M PLALAB 11:42
PROVIDERS: ATTEND Psychiatry & Neurology Addiction Medicine
DX: F10.99 Alcohol use, unspecified with unspecified alcohol-induced disorder (principal)

== ENCOUNTER → 2019-09-03 | Outpatient (CLI) | payer OTHER | LOC: M PLALAB 14:46 | PROVIDERS: ATTEND Psychiatry & Neurology Addiction Medicine | DX: F10.929 Alcohol use, unspecified with intoxication, unspecified (principal) ==

== ENCOUNTER 2019-09-22 08:45 | Outpatient (RCR) | payer OTHER | END 2019-09-23 | LOC: M OUTALCOH 08:45 | PROVIDERS: ATTEND Psychiatry & Neurology Psychiatry | DX: Z03.89 Encounter for observation for other suspected diseases and conditions ruled out (principal); F11.20 Opioid dependence, uncomplicated; F13.10 Sedative, hypnotic or anxiolytic abuse, uncomplicated; F17.200 Nicotine dependence, unspecified, uncomplicated ==

== ENCOUNTER → 2019-10-23 | Outpatient (RCR) | payer OTHER ==
[~2019-10-23] MED LIST changes: +CYCL-707 PO; -CYCL10TA PO
== END ==
LOC: M OUTALCOH 09-26 08:07
PROVIDERS: ATTEND Psychiatry & Neurology Addiction Medicine
DX: F13.10 Sedative, hypnotic or anxiolytic abuse, uncomplicated (principal); F11.20 Opioid dependence, uncomplicated; F17.200 Nicotine dependence, unspecified, uncomplicated; Z03.89 Encounter for observation for other suspected diseases and conditions ruled out

== ENCOUNTER 2019-11-21 13:19 | Outpatient (RCR) | payer OTHER | END 2019-11-23 | LOC: M OUTALCOH 13:19 | PROVIDERS: ATTEND Psychiatry & Neurology Addiction Medicine | DX: F13.10 Sedative, hypnotic or anxiolytic abuse, uncomplicated (principal); F11.20 Opioid dependence, uncomplicated; F17.200 Nicotine dependence, unspecified, uncomplicated ==

== ENCOUNTER 2019-12-11 09:00 | Outpatient (RCR) | payer OTHER | END 2019-12-23 | LOC: M OUTALCOH 09:00 | PROVIDERS: ATTEND Psychiatry & Neurology Addiction Medicine | DX: F13.10 Sedative, hypnotic or anxiolytic abuse, uncomplicated (principal); F11.20 Opioid dependence, uncomplicated; F17.200 Nicotine dependence, unspecified, uncomplicated ==

== ENCOUNTER 2020-01-21 15:00 | Outpatient (RCR) | payer OTHER | END 2020-01-23 | LOC: M OUTALCOH 15:00 | PROVIDERS: ATTEND Psychiatry & Neurology Addiction Medicine | DX: F13.10 Sedative, hypnotic or anxiolytic abuse, uncomplicated (principal); F11.20 Opioid dependence, uncomplicated; F17.200 Nicotine dependence, unspecified, uncomplicated ==

== ENCOUNTER → 2020-02-10 | Emergency (ER) | payer BC, OTHER ==
[~2020-02-10] MED LIST changes: +CIPROFLOXACIN 500MG TABLET ONE; +KETOROLAC 30 MG/ML 1ML VIAL As Ordered ONE; +ONDANSETRON 4MG/2ML VIAL As Ordered ONE
[2020-02-14 18:33] LABS: ALBUMIN 4.1 GM/DL (3.2-5.2); ALT/SGPT 19 U/L (12-78); BILIRUBIN,TOTAL 0.3 MG/DL (0.2-1.0); BLOOD UREA NITROGEN 11 MG/DL (7-18); CALCIUM LEVEL 9.1 MG/DL (8.5-10.1); CARBON DIOXIDE LEVEL 28 MEQ/L (21-32); CHLORIDE LEVEL 107 MEQ/L (98-107); CREATININE FOR GFR 0.68 MG/DL (0.55-1.30); GLOMERULAR FILTRATION RATE > 60.0 (>60); GLUCOSE, FASTING 88 MG/DL (70-100); LIPASE 38 U/L (73-393); POTASSIUM SERUM 4.1 MEQ/L (3.5-5.1); SODIUM LEVEL 139 MEQ/L (136-145); TOTAL PROTEIN 7.8 GM/DL (6.4-8.2)
[2020-02-14 18:37] LABS: HCG, SERUM QUALITATIVE NEGATIVE (NEGATIVE)
[2020-03-22 08:34] LABS: BASO % 0.3 % (0.0-1.0); EOS % 0.6 % (0.0-3.0); HEMATOCRIT 39.8 % (36.0-47.0); HEMOGLOBIN 12.9 g/dl (12.0-15.5); LYMPH # 1.7 10^3/uL (1.5-5.0); LYMPH % 26.3 % (24.0-44.0); MEAN CORPUSCULAR HEMOGLOBIN 26.4 pg (27.0-33.0); MEAN CORPUSCULAR HGB CONC 32.4 g/dl (32.0-36.5); MEAN CORPUSCULAR VOLUME 81.4 fl (80.0-96.0); MONO # 0.4 10^3/uL (0.0-0.8); MONO % 6.4 % (0.0-5.0); NEUTROPHILS # 4.4 10^3/uL (1.5-8.5); NEUTROPHILS % 66.1 % (36.0-66.0); PLATELET COUNT, AUTOMATED 219 10^3/uL (150-450); RED BLOOD COUNT 4.89 10^6/uL (4.00-5.40); WHITE BLOOD COUNT 6.6 10^3/uL (4.0-10.0)
[2020-03-22 09:29] LABS: APPEARANCE, URINE CLOUDY (CLEAR); BACTERIA, URINE AUTO 3+ (NEGATIVE); BILIRUBIN, URINE AUTO NEGATIVE (NEGATIVE); BLOOD, URINE BLOOD NEGATIVE (NEGATIVE); COLOR, URINE YELLOW (YELLOW); GLUCOSE, URINE (UA) AUTO NEGATIVE (NEGATIVE); KETONE, URINE AUTO 1+ mg/dL (NEGATIVE); LEUKOCYTE ESTERASE, URINE AUTO 2+ (NEGATIVE); MUCUS, URINE LARGE (NEGATIVE); NITRITE, URINE AUTO POSITIVE (NEGATIVE); PROTEIN, URINE AUTO 1+ mg/dL (NEGATIVE); RBC, URINE AUTO 16 /HPF (0-3); SPECIFIC GRAVITY URINE AUTO 1.021 (1.002-1.035); SQUAMOUS EPITHELIAL CELL UR AU 2 /HPF (0-6); TRANSITIONAL EPITHELIAL AUTO 1 /HPF; UROBILINOGEN, URINE AUTO 0.2 mg/dL (0.0-2.0); WBC, URINE AUTO TNTC /HPF (0-3)
== END | disposition home or self-care (01) ==
LOC: M ED 17:55
DX: N39.0 Urinary tract infection, site not specified (principal); R93.41 Abnormal radiologic findings on diagnostic imaging of renal pelvis, ureter, or bladder; I10 Essential (primary) hypertension; Z87.440 Personal history of urinary (tract) infections; Z87.448 Personal history of other diseases of urinary system; F17.200 Nicotine dependence, unspecified, uncomplicated; Z88.4 Allergy status to anesthetic agent; Z88.0 Allergy status to penicillin
CPT/HCPCS: 74176; 80053; 81001; 83690; 84703; 85025; 87088; 87186; 96361; 96374; 96375; 99284; J1885; J2405

== ENCOUNTER → 2020-02-23 | Outpatient (RCR) | payer OTHER ==
[~2020-02-23] MED LIST changes: -CIPROFLOXACIN 500MG TABLET ONE; -KETOROLAC 30 MG/ML 1ML VIAL As Ordered ONE; -ONDANSETRON 4MG/2ML VIAL As Ordered ONE
== END ==
LOC: M OUTALCOH 01-28 15:00
PROVIDERS: ATTEND Psychiatry & Neurology Addiction Medicine
DX: F13.10 Sedative, hypnotic or anxiolytic abuse, uncomplicated (principal); F11.20 Opioid dependence, uncomplicated; F17.200 Nicotine dependence, unspecified, uncomplicated

== ENCOUNTER 2020-03-22 14:21 | Outpatient (RCR) | payer OTHER | END 2020-03-24 | LOC: M OUTALCOH 14:21 | PROVIDERS: ATTEND Psychiatry & Neurology Addiction Medicine | DX: F13.10 Sedative, hypnotic or anxiolytic abuse, uncomplicated (principal); F11.20 Opioid dependence, uncomplicated; F17.200 Nicotine dependence, unspecified, uncomplicated ==

== ENCOUNTER 2020-04-14 13:03 | Outpatient (RCR) | payer OTHER | END 2020-04-24 | LOC: M OUTALCOH 13:03 | PROVIDERS: ATTEND Psychiatry & Neurology Addiction Medicine | DX: F13.10 Sedative, hypnotic or anxiolytic abuse, uncomplicated (principal); F11.20 Opioid dependence, uncomplicated; F17.200 Nicotine dependence, unspecified, uncomplicated ==

== ENCOUNTER → 2020-05-24 | Outpatient (RCR) | payer OTHER | LOC: M OUTALCOH 04-27 13:35 | PROVIDERS: ATTEND Psychiatry & Neurology Psychiatry | DX: F13.10 Sedative, hypnotic or anxiolytic abuse, uncomplicated (principal); F11.20 Opioid dependence, uncomplicated; F17.200 Nicotine dependence, unspecified, uncomplicated ==

== ENCOUNTER 2020-06-03 14:45 | Outpatient (RCR) | payer OTHER ==
[~2020-06-03 14:45] MED LIST changes: +LABE100T4 PO; -LABE10TAB PO
== END 2020-06-24 ==
LOC: M OUTALCOH 14:45
PROVIDERS: ATTEND Psychiatry & Neurology Psychiatry
DX: F13.10 Sedative, hypnotic or anxiolytic abuse, uncomplicated (principal); F10.20 Alcohol dependence, uncomplicated; F17.200 Nicotine dependence, unspecified, uncomplicated

== ENCOUNTER 2020-06-30 14:20 | Outpatient (RCR) | payer OTHER | END 2020-07-25 | LOC: M OUTALCOH 14:20 | PROVIDERS: ATTEND Psychiatry & Neurology Psychiatry | DX: F11.21 Opioid dependence, in remission (principal); F17.209 Nicotine dependence, unspecified, with unspecified nicotine-induced disorders; F13.99 Sedative, hypnotic or anxiolytic use, unspecified with unspecified sedative, hypnotic or anxiolytic-induced disorder ==

== ENCOUNTER 2020-08-17 16:00 | Outpatient (RCR) | payer OTHER ==
[~2020-08-17 16:00] MED LIST changes: -LABE100T36 PO; +LABE100T5 PO; +LISI10TA22; +LISI10TA22 PO; -LISI10TA4; -LISI10TA4 PO
== END 2020-08-22 ==
LOC: M OUTALCOH 16:00
PROVIDERS: ATTEND Psychiatry & Neurology Psychiatry
DX: F11.21 Opioid dependence, in remission (principal); F17.209 Nicotine dependence, unspecified, with unspecified nicotine-induced disorders

== ENCOUNTER 2020-09-20 15:00 | Outpatient (RCR) | payer OTHER | END 2020-09-22 | LOC: M OUTALCOH 15:00 | PROVIDERS: ATTEND Psychiatry & Neurology Psychiatry | DX: F11.21 Opioid dependence, in remission (principal); F17.209 Nicotine dependence, unspecified, with unspecified nicotine-induced disorders ==

== ENCOUNTER 2020-10-13 14:30 | Outpatient (RCR) | payer OTHER | END 2020-10-22 | LOC: M OUTALCOH 14:30 | PROVIDERS: ATTEND Psychiatry & Neurology Psychiatry | DX: F15.20 Other stimulant dependence, uncomplicated (principal); F12.20 Cannabis dependence, uncomplicated; F17.200 Nicotine dependence, unspecified, uncomplicated ==

== ENCOUNTER 2020-11-15 13:00 | Outpatient (RCR) | payer OTHER ==
[~2020-11-15 13:00] MED LIST changes: +GABA-283 PO; -GABA-845 PO
== END 2020-11-22 ==
LOC: M OUTALCOH 13:00
PROVIDERS: ATTEND Psychiatry & Neurology Psychiatry
DX: F11.21 Opioid dependence, in remission (principal); F17.209 Nicotine dependence, unspecified, with unspecified nicotine-induced disorders

== ENCOUNTER 2020-12-08 14:50 | Outpatient (RCR) | payer OTHER | END 2020-12-22 | LOC: M OUTALCOH 14:50 | PROVIDERS: ATTEND Psychiatry & Neurology Psychiatry | DX: F11.21 Opioid dependence, in remission (principal); F17.209 Nicotine dependence, unspecified, with unspecified nicotine-induced disorders ==

== ENCOUNTER 2021-01-10 15:40 | Outpatient (RCR) | payer OTHER | END 2021-01-22 | LOC: M OUTALCOH 15:40 | PROVIDERS: ATTEND Psychiatry & Neurology Psychiatry | DX: F11.21 Opioid dependence, in remission (principal); F17.209 Nicotine dependence, unspecified, with unspecified nicotine-induced disorders ==

== ENCOUNTER 2021-03-07 14:30 | Outpatient (RCR) | payer OTHER ==
[2021-03-15] MEDS ORDERED: ZUBS1SUB (16:07)
[2021-03-15] MEDS ORDERED: BACT800T5 PO (21:35)
[2021-03-19] MEDS ORDERED: ONDA4TAB6 PO (16:11)
[2021-03-19] MEDS ORDERED: KETO10TAB PO (16:11)
== END 2021-03-24 ==
LOC: M OUTALCOH 14:30
PROVIDERS: ATTEND Psychiatry & Neurology Psychiatry
DX: F11.21 Opioid dependence, in remission (principal); F17.209 Nicotine dependence, unspecified, with unspecified nicotine-induced disorders; F13.10 Sedative, hypnotic or anxiolytic abuse, uncomplicated

== ENCOUNTER 2021-03-15 15:56 | Emergency (ER) | payer BC, OTHER ==
[~2021-03-15] VITALS: Ht 172.7 cm; Wt 81.0 kg
[2021-03-15] MEDS ORDERED: ZUBS1SUB (16:07)
[2021-03-15 17:20] LABS: BASO % 0.2 % (0.0-1.0); EOS % 0.3 % (0.0-3.0); HEMATOCRIT 39.4 % (36.0-47.0); HEMOGLOBIN 12.4 g/dl (12.0-15.5); LYMPH # 1.1 10^3/uL (1.5-5.0); LYMPH % 11.2 % (24.0-44.0); MEAN CORPUSCULAR HEMOGLOBIN 26.9 pg (27.0-33.0); MEAN CORPUSCULAR HGB CONC 31.5 g/dl (32.0-36.5); MEAN CORPUSCULAR VOLUME 85.5 fl (80.0-96.0); MONO # 0.5 10^3/uL (0.0-0.8); MONO % 4.7 % (2.0-8.0); NEUTROPHILS # 8.4 10^3/uL (1.5-8.5); NEUTROPHILS % 83.3 % (36.0-66.0); PLATELET COUNT, AUTOMATED 189 10^3/uL (150-450); RED BLOOD COUNT 4.61 10^6/uL (4.00-5.40); WHITE BLOOD COUNT 10.1 10^3/uL (4.0-10.0)
[2021-03-15 17:21] LABS: ALT/SGPT 16 U/L (12-78); BILIRUBIN,DIRECT < 0.1 MG/DL (0.0-0.2); BILIRUBIN,TOTAL 0.3 MG/DL (0.2-1.0); BLOOD UREA NITROGEN 13 MG/DL (7-18); CALCIUM LEVEL 8.9 MG/DL (8.5-10.1); CARBON DIOXIDE LEVEL 26 MEQ/L (21-32); CHLORIDE LEVEL 107 MEQ/L (98-107); CREATININE FOR GFR 0.61 MG/DL (0.55-1.30); GLOMERULAR FILTRATION RATE > 60.0 (>60); GLUCOSE, FASTING 90 MG/DL (70-100); LIPASE 72 U/L (73-393); POTASSIUM SERUM 4.3 MEQ/L (3.5-5.1); SODIUM LEVEL 138 MEQ/L (136-145); TOTAL PROTEIN 7.8 GM/DL (6.4-8.2)
[2021-03-15 17:25] LABS: HCG, SERUM QUALITATIVE NEGATIVE (NEGATIVE)
[2021-03-15] MEDS ORDERED: CIPROFLOXACIN 400 MG in IV 1 EA IV ONE (18:10)
[2021-03-15] MEDS ORDERED: ONDANSETRON 4MG/2ML VIAL IV ONE (18:10)
[2021-03-15] MEDS ORDERED: NS 1,000 ML IV ONE (18:10)
[2021-03-15] MEDS ORDERED: KETOROLAC 30 MG/ML 1ML VIAL IV ONE (18:10)
--- NOTE | 2021-03-15 18:44 | REPVR ---
PROCEDURE INFORMATION: Exam: CT Abdomen And Pelvis Without Contrast Exam date and time: 03/15/2021 6:13 PM Age: 25 years old Clinical indication: Abdominal pain; Additional info: Right flank pain TECHNIQUE: Imaging protocol: Computed tomography of the abdomen and pelvis without contrast. Radiation optimization: All CT scans at this facility use at least one of these dose optimization techniques: automated exposure control; mA and/or kV adjustment per patient size (includes targeted exams where dose is matched to clinical indication); or iterative reconstruction. COMPARISON: CT ABD PELVIS W/O CONTRAST 02/10/2020 8:49 PM FINDINGS: Liver: Normal. No mass. Gallbladder and bile ducts: Normal. No calcified stones. No ductal dilation. Pancreas: Suggestion of minimal inflammatory changes surrounding the pancreatic head. Clinical correlation to exclude mild focal pancreatitis suggested. Spleen: Normal. No splenomegaly. Adrenal glands: Normal. No mass. Kidneys and ureters: Air within the collecting system of the right kidney. Findings may be postprocedural although infection not excluded. Stomach and bowel: There is increased feces throughout the colon consistent with constipation. Appendix: No evidence of appendicitis. Intraperitoneal space: Unremarkable. No free air. No significant fluid collection. Vasculature: Unremarkable. No abdominal aortic aneurysm. Lymph nodes: Unremarkable. No enlarged lymph nodes. Urinary bladder: Curvilinear density, likely calcific, demonstrated on the right posterior aspect of the urinary bladder stable in appearance in comparison to the prior study of 02/10/2020 and 04/02/2019. Reproductive: Unremarkable as visualized. Bones/joints: Moderate central spinal stenosis L4-L5. Soft tissues: Unremarkable. IMPRESSION: 1. Air within the collecting system of the right kidney. Findings may be postprocedural although infection not excluded. 2. There is increased feces throughout the colon consistent with constipation. 3. Suggestion of minimal inflammatory changes surrounding the pancreatic head. Clinical correlation to exclude mild focal pancreatitis suggested. 4. Curvilinear density, likely calcific, demonstrated on the right posterior aspect of the urinary bladder stable in appearance in comparison to the prior study of 02/10/2020 and 04/02/2019. Electronically signed by: Martin Schreiber On 03/15/2021 18:43:57 PM
[2021-03-15] MEDS ORDERED: diphenhydrAMINE 50MG/ML VIAL (J1200) IV ONE (19:30)
[2021-03-15] MEDS ORDERED: cefTRIAXone SOD 1 GM in D5W MINI-BAG PLUS 50 ML IV ONE (20:00)
[2021-03-15] MEDS ORDERED: BACT800T5 PO (21:35)
[2021-03-15 21:48] VITALS: BP 99/58
== END 2021-03-15 21:51 | disposition home or self-care (01) ==
LOC: M ED 15:56
DX: N10 Acute pyelonephritis (principal); Z87.442 Personal history of urinary calculi; Z87.448 Personal history of other diseases of urinary system; R56.9 Unspecified convulsions; F98.8 Other specified behavioral and emotional disorders with onset usually occurring in childhood and adolescence; F91.3 Oppositional defiant disorder; F17.200 Nicotine dependence, unspecified, uncomplicated; Z79.899 Other long term (current) drug therapy; Z88.0 Allergy status to penicillin; Z88.1 Allergy status to other antibiotic agents; Z88.8 Allergy status to other drugs, medicaments and biological substances
CPT/HCPCS: 74176; 80048; 80076; 81001; 83690; 84703; 85025; 87088; 87186; 96361; 96365; 96367; 96375; 99284; J0696; J0744; J1200; J1885; J2405

== ENCOUNTER 2021-03-19 13:32 | Emergency (ER) | payer BC, OTHER ==
[~2021-03-19] VITALS: Ht 172.7 cm; Wt 78.1 kg
[~2021-03-19 13:32] MED LIST changes: +ZUBS1SUB
[2021-03-19] MEDS ORDERED: METOCLOPRAMIDE INJ 10MG/2ML VIAL (J2765 PER 1) IV ONE (14:15)
[2021-03-19] MEDS ORDERED: NS 1,000 ML IV ONE (14:15)
[2021-03-19] MEDS ORDERED: KETOROLAC 30 MG/ML 1ML VIAL IV ONE (14:15)
[2021-03-19] MEDS ORDERED: diphenhydrAMINE 50MG/ML VIAL (J1200) IV ONE (14:15)
[2021-03-19 15:21] LABS: BASO % 0.4 % (0.0-1.0); EOS % 0.5 % (0.0-3.0); HEMATOCRIT 42.3 % (36.0-47.0); HEMOGLOBIN 13.7 g/dl (12.0-15.5); LYMPH # 1.3 10^3/uL (1.5-5.0); LYMPH % 17.6 % (24.0-44.0); MEAN CORPUSCULAR HEMOGLOBIN 26.8 pg (27.0-33.0); MEAN CORPUSCULAR HGB CONC 32.4 g/dl (32.0-36.5); MEAN CORPUSCULAR VOLUME 82.6 fl (80.0-96.0); MONO # 0.5 10^3/uL (0.0-0.8); MONO % 7.4 % (2.0-8.0); NEUTROPHILS # 5.4 10^3/uL (1.5-8.5); NEUTROPHILS % 73.8 % (36.0-66.0); PLATELET COUNT, AUTOMATED 277 10^3/uL (150-450); RED BLOOD COUNT 5.12 10^6/uL (4.00-5.40); WHITE BLOOD COUNT 7.3 10^3/uL (4.0-10.0)
[2021-03-19] MEDS ORDERED: KETO10TAB PO (16:11)
[2021-03-19] MEDS ORDERED: ONDA4TAB6 PO (16:11)
[2021-03-19 17:32] VITALS: BP 119/73
== END 2021-03-19 17:36 | disposition home or self-care (01) ==
LOC: M ED 13:32
DX: N39.0 Urinary tract infection, site not specified (principal); R10.9 Unspecified abdominal pain; Z87.448 Personal history of other diseases of urinary system; Z87.442 Personal history of urinary calculi; F98.8 Other specified behavioral and emotional disorders with onset usually occurring in childhood and adolescence; F91.3 Oppositional defiant disorder; Z79.899 Other long term (current) drug therapy; Z88.0 Allergy status to penicillin; Z88.1 Allergy status to other antibiotic agents; Z88.4 Allergy status to anesthetic agent
CPT/HCPCS: 80047; 81001; 85025; 87086; 96361; 96374; 96375; 99284; J1200; J1885; J2765

== ENCOUNTER 2021-04-22 13:10 | Emergency (ER) | payer BC, OTHER ==
[~2021-04-22] VITALS: Ht 175.3 cm; Wt 77.3 kg
[~2021-04-22 13:10] MED LIST changes: +KETO10TAB PO; +ONDA4TAB6 PO
--- OUTSIDE RECORDS SUMMARY | 2021-04-22 13:21 | CCD ---
Author Author [facility] Organization [facility] Address Unknown Phone Unavailable Support Name Relationship Address Phone [place] [address] Unavailable UN Next Of Kin Unknown Unavailable DPAO Next Of Kin [address] [place] [address] NOONE Next Of Kin Unknown Eb HULEY Next Of Kin [address] [place] [address] UNK Next Of Kin Unknown Unavailable [employer] Next Of Kin [address] [place] [address] ABRAM, LEONARDA Next Of Kin Unknown ABRAM, YANCY Next Of Kin [address] [facility] [address] [place] [id number] CONVERGYS Next Of Kin [address] [place] [address] BEUTEL, TEA Next Of Kin [address] [place] [address] BEUTAL, TAE Next Of Kin [address] [place] [address] CONVERGY'S Next Of Kin [address] [place] [address] STREAM Next Of Kin [address] [place] [address] JRC* Next Of Kin [place] [id number] CAPCHEAD Next Of Kin [address] [place] [address] UE Next Of Kin Unknown Unavailable CAPC Next Of Kin [address] [place] [address] [employer] Next Of Kin [address] [place] [address] [employer] [address] Unavailable KEZIA CORLEY Next Of Kin [address] [place] [address] Next Of Kin Unknown Unavailable BARB TATUM Next Of Kin [address] [place] [address] Angie PATTERSON Next Of Kin [address] [facility] [address] [place] [address] TREE LÓPEZ Next Of Kin [address] [place] [address] FRANCESCO LÓPEZ Next Of Kin [address] [place] [address] TEA BURTON ECON [address] [place] [address] Unavailable Abram, Yancy ECON [address] [facility] [address] [place] [address] [phone] Care Team Providers Care Fiberglass 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 Name Role Phone [facility] Unavailable Unavailable PHYSICIAN, OTHER Unavailable Unavailable Edgar Greenberg MD Unavailable Unavailable Edgar Greenberg MD Unavailable Unavailable Edgar Greenberg MD Unavailable Unavailable Edgar Greenberg MD Unavailable Unavailable Edgar Greenberg MD Unavailable Unavailable Edgar Greenberg MD Unavailable Unavailable Edgar Greenberg MD Unavailable Unavailable Edgar Greenberg MD Unavailable Unavailable Edgar Greenberg MD Unavailable Unavailable Edgar Greenberg MD Unavailable Unavailable Edgar Greenberg MD Unavailable Unavailable Edgar Greenberg MD Unavailable Unavailable Edgar Greenberg MD Unavailable Unavailable Edgar Greenberg MD Unavailable Unavailable Edgar Greenberg MD Unavailable Unavailable Edgar Greenberg MD Unavailable Unavailable Edgar Greenberg MD Unavailable Unavailable Edgar Greenberg MD Unavailable Unavailable Edgar Greenberg MD Unavailable Unavailable Edgar Greenberg MD Unavailable Unavailable Edgar Greenberg MD Unavailable Unavailable Edgar Greenberg MD Unavailable Unavailable Edgar Greenberg MD Unavailable Unavailable Edgar Greenberg MD Unavailable Unavailable Edgar Greenberg MD Unavailable Unavailable Edgar Greenberg MD Unavailable Unavailable Edgar Greenberg MD Unavailable Unavailable Edgar Greenberg MD Unavailable Unavailable Edgar Greenberg MD Unavailable Unavailable Edgar Greenberg MD Unavailable Unavailable Edgar Greenberg MD Unavailable Unavailable Britni Greenberg Moideanne VILLANUEVA Unavailable Unavailable Britni Greenberg Moideanne VILLANUEVA Unavailable Unavailable Britni Greenberg Moideanne VILLANUEVA Unavailable Unavailable Edgar Greenberg MD Unavailable Unavailable Edgar Greenberg MD Unavailable Unavailable Edgar Greenberg MD Unavailable Unavailable Britni Greenberg Moideanne VILLANUEVA Unavailable Unavailable Britni Greenberg Moideanne VILLANUEVA Unavailable Unavailable Edgar Greenberg MD Unavailable Unavailable Edgar Greenberg MD Unavailable Unavailable Edgar Greenberg MD Unavailable Unavailable Edgar Greenberg MD Unavailable Unavailable Edgar Greenberg MD Unavailable Unavailable Edgar Greenberg MD Unavailable Unavailable Edgar Greenberg MD Unavailable Unavailable Edgar Greenberg MD Unavailable Unavailable Edgar Greenberg MD Unavailable Unavailable Edgar Greenberg MD Unavailable Unavailable Edgar Greenberg MD Unavailable Unavailable Edgar Greenberg MD Unavailable Unavailable Edgar Greenberg MD Unavailable Unavailable Edgar Greenberg MD Unavailable Unavailable Edgar Greenberg MD Unavailable Unavailable Edgar Greenberg MD Unavailable Unavailable Edgar Greenberg MD Unavailable Unavailable Edgar Greenberg MD Unavailable Unavailable Rodrigo Greenbergd Unavailable Unavailable Edgar Greenberg MD Unavailable Unavailable Edgar Greenberg MD Unavailable Unavailable Edgar Greenberg MD Unavailable Unavailable Edgar Greenberg MD Unavailable Unavailable Edgar Greenberg MD Unavailable Unavailable Rodrigo Greenbergd Unavailable Unavailable Britni Greenberg Moid Unavailable Unavailable Edgar Greenberg MD Unavailable Unavailable Rodrigo Greenbergd Unavailable Unavailable Edgar Greenberg MD Unavailable Unavailable BEATA PAREDES PA Unavailable Unavailable LENABEATA MCGREGOR PA Unavailable Unavailable LENABEATA MCGREGORIC PA Unavailable Unavailable LENABEATA MCGREGORIC PA Unavailable Unavailable LENABEATA MCGREGORIC PA Unavailable Unavailable LENA, BEATA WILD PA Unavailable Unavailable LENA, BEATA WILD PA Unavailable Unavailable LENA, BEATA WILD PA Unavailable Unavailable LENA, BEATA WILD PA Unavailable Unavailable LENA, BEATA WILD PA Unavailable Unavailable LENA, BEATA WILD PA Unavailable Unavailable LENA, BEATA WILD PA Unavailable Unavailable LENA, BEATA WILD PA Unavailable Unavailable LENA, BEATA WILD PA Unavailable Unavailable LENA, BEATA WILD PA Unavailable Unavailable LENA, BEATA WILD PA Unavailable Unavailable LNEA, BEATA WILD PA Unavailable Unavailable LENA, BEATA WILD PA Unavailable Unavailable LENA, BEATA WILD PA Unavailable Unavailable LENA, BEATA WILD PA Unavailable Unavailable LENA, BEATA WILD PA Unavailable Unavailable LENA, BEATA WILD PA Unavailable Unavailable Del Real, W Karthikeyan RPA-C Unavailable Unavailable Del Real, W Karthikeyan RPA-C Unavailable Unavailable Del Real, W Karthikeyan RPA-C Unavailable Unavailable Del Real, W Karthikeyan RPA-C Unavailable Unavailable Del Real, W Karthikeyan RPA-C Unavailable Unavailable Del Real, W Karthikeyan RPA-C Unavailable Unavailable Del Real, W Karthikeyan RPA-C Unavailable Unavailable Del Real, W Karthikeyan RPA-C Unavailable Unavailable Del Real, W Karthikeyan RPA-C Unavailable Unavailable Del Real, W Karthikeyan RPA-C Unavailable Unavailable Del Real, W Karthikeyan RPA-C Unavailable Unavailable Del Real, W Karthikeyan RPA-C Unavailable Unavailable Del Real, W Karthikeyan RPA-C Unavailable Unavailable Del Real, W Karthikeyan RPA-C Unavailable Unavailable Del Real, W Karthikeyan RPA-C Unavailable Unavailable Del Real, W Karthikeyan RPA-C Unavailable Unavailable Del Real, W Karthikeyan RPA-C Unavailable Unavailable Lopez, Agnes Angelica PA Unavailable Unavailable Lopez, Agnes Angelica PA Unavailable Unavailable Lopez, Agnes Angelica PA Unavailable Unavailable Lopez, Agnes Angelica PA Unavailable Unavailable Lopez, Agnes Angelica PA Unavailable Unavailable Lopez, Agnes Angelica PA Unavailable Unavailable Lopez, Agnes Angelica PA Unavailable Unavailable Lopez, Agnes Angelica PA Unavailable Unavailable Lopez, Agnes Angelica PA Unavailable Unavailable Lopez, Agnes Angelica PA Unavailable Unavailable Lopez, Agnes Angelica PA Unavailable Unavailable Lopez, Agnes Angelica PA Unavailable Unavailable Lopez, Agnes Angelica PA Unavailable Unavailable Lopez, Agnes Angelica PA Unavailable Unavailable Lopez, Agnes Angelica PA Unavailable Unavailable Lopez, Agnes Angelica PA Unavailable Unavailable Lopez, Agnes Angelica PA Unavailable Unavailable Lopez, Agnes Angelica PA Unavailable Unavailable Lopez, Agnes Angelica PA Unavailable Unavailable Lopez, Agnes Angelica PA Unavailable Unavailable Lopez, Agnes Angelica PA Unavailable Unavailable Lopez, Agnes Angelica PA Unavailable Unavailable Lopez, Agnes Angelica PA Unavailable Unavailable Lopez, Agnes Angelica PA Unavailable Unavailable Lopez, Agnes Angelica PA Unavailable Unavailable Lopez, Agnes Angelica PA Unavailable Unavailable Lopez, Agnes Angelica PA Unavailable Unavailable Lopez, Agnes Angelica PA Unavailable Unavailable Lopez, Agnes Angelica PA Unavailable Unavailable Lopez, Agnes Angelica PA Unavailable Unavailable Lopez, Agnes Angelica PA Unavailable Unavailable Lopez, Agnes Angelica PA Unavailable Unavailable Lopez, Agnes Angelica PA Unavailable Unavailable Lopez, Agnes Angelica PA Unavailable Unavailable Lopez, Agnes Angelica PA Unavailable Unavailable Lopez, Agnes Angelica PA Unavailable Unavailable Lopez, Agnes Angelica PA Unavailable Unavailable Lopez, Agnes Angelica PA Unavailable Unavailable Lopez, Agnes Angelica PA Unavailable Unavailable Lopez, Agnes Angelica PA Unavailable Unavailable Lopez, Agnes Angelica PA Unavailable Unavailable Lopez, Agnes Angelica PA Unavailable Unavailable Lopez, Agnes Angelica PA Unavailable Unavailable Lopez, Agnes Angelica PA Unavailable Unavailable Lopez, Agnes Angelica PA Unavailable Unavailable Lopez, Agnes Angelica PA Unavailable Unavailable Lopez, Agnes Angelica PA Unavailable Unavailable Lopez, Agnes Angelica PA Unavailable Unavailable Lopez, Agnes Angelica PA Unavailable Unavailable BUNKER, R SHEILA PA Unavailable Unavailable BUNKER, R SHEILA PA Unavailable Unavailable BUNKER, R SHEILA PA Unavailable Unavailable BUNKER, R SHEILA PA Unavailable Unavailable BUNKER, R SHEILA PA Unavailable Unavailable BUNKER, R SHEILA PA Unavailable Unavailable BUNKER, R SHEILA PA Unavailable Unavailable BUNKER, R SHEILA PA Unavailable Unavailable BUNKER, R SHEILA PA Unavailable Unavailable BUNKER, R SHEILA PA Unavailable Unavailable BUNKER, R SHEILA PA Unavailable Unavailable BUNKER, R SHEILA PA Unavailable Unavailable BUNKER, R SHEILA PA Unavailable Unavailable BUNKER, R SHEILA PA Unavailable Unavailable BUNKER, R SHEILA PA Unavailable Unavailable BUNKER, R SHEILA PA Unavailable Unavailable BUNKER, R SHEILA PA Unavailable Unavailable BUNKER, R SHEILA PA Unavailable Unavailable BUNKER, R SHEILA PA Unavailable Unavailable BUNKER, R SHEILA PA Unavailable Unavailable BUNKER, R SHEILA PA Unavailable Unavailable BUNKER, R SHEILA PA Unavailable Unavailable BUNKER, R SHEILA PA Unavailable Unavailable BUNKER, R SHEILA PA Unavailable Unavailable BUNKER, R SHEILA PA Unavailable Unavailable BUNKER, R SHEILA PA Unavailable Unavailable BUNKER, R SHEILA PA Unavailable Unavailable BUNKER, R SHEILA PA Unavailable Unavailable BUNKER, R SHEILA PA Unavailable Unavailable BUNKER, R SHEILA PA Unavailable Unavailable BUNKER, R SHEILA PA Unavailable Unavailable BUNKER, R SHEILA PA Unavailable Unavailable BUNKER, R SHEILA PA Unavailable Unavailable BUNKER, R SHEILA PA Unavailable Unavailable BUNKER, R SHEILA PA Unavailable Unavailable BUNKER, R SHEILA PA Unavailable Unavailable BUNKER, R SHEILA PA Unavailable Unavailable BUNKER, R SHEILA PA Unavailable Unavailable BUNKER, R SHEILA PA Unavailable Unavailable BUNKER, R SHEILA PA Unavailable Unavailable BUNKER, R SHEILA PA Unavailable Unavailable BUNKER, R SHEILA PA Unavailable Unavailable BUNKER, R SHEILA PA Unavailable Unavailable BUNKER, R SHEILA PA Unavailable Unavailable BUNKER, R SHEILA PA Unavailable Unavailable BUNKER, R SHEIAL PA Unavailable Unavailable BUNKER, R SHEILA PA Unavailable Unavailable BUNKER, R SHEILA PA Unavailable Unavailable BUNKER, R SHEILA PA Unavailable Unavailable BUNKER, R SHEILA PA Unavailable Unavailable BUNKER, R SHEILA PA Unavailable Unavailable BUNKER, R SHEILA PA Unavailable Unavailable BUNKER, R SHEILA PA Unavailable Unavailable BUNKER, R SHEILA PA Unavailable Unavailable BUNKER, R SHEILA PA Unavailable Unavailable BUNKER, R SHEILA PA Unavailable Unavailable VITOR, L SCOTTY PA Unavailable Unavailable VITOR, L SCOTTY PA Unavailable Unavailable VITOR, L SCOTTY PA Unavailable Unavailable VITOR, L SCOTTY PA Unavailable Unavailable VITOR, L SCOTTY PA Unavailable Unavailable VITOR, L SCOTTY PA Unavailable Unavailable VITOR, L SCOTTY PA Unavailable Unavailable VITOR, L SCOTTY PA Unavailable Unavailable VITOR, L SCOTTY PA Unavailable Unavailable VITOR, L SCOTTY PA Unavailable Unavailable VITOR, L SCOTTY PA Unavailable Unavailable VITOR, L SCOTTY PA Unavailable Unavailable VITOR, L SCOTTY PA Unavailable Unavailable VITOR, L SCOTTY PA Unavailable Unavailable VITOR, L SCOTTY PA Unavailable Unavailable VITOR, L SCOTTY PA Unavailable Unavailable VITOR, L SCOTTY PA Unavailable Unavailable VITOR, L SCOTTY PA Unavailable Unavailable VITOR, L SCOTTY PA Unavailable Unavailable VITOR, L SCOTTY PA Unavailable Unavailable VITOR, L SCOTTY PA Unavailable Unavailable VITOR, L SCOTTY PA Unavailable Unavailable Yobani Trejo MD Unavailable Unavailable Yobani Trejo MD Unavailable Unavailable Yobani Trejo MD Unavailable Unavailable Yobani Trejo MD Unavailable Unavailable Yobani Trejo MD Unavailable Unavailable Yobani Trejo MD Unavailable Unavailable Yobani Trejo MD Unavailable Unavailable Yobani Trejo MD Unavailable Unavailable Yobani Trejo MD Unavailable Unavailable Yobani Trejo MD Unavailable Unavailable Yobani Trejo MD Unavailable Unavailable Yobani Trejo MD Unavailable Unavailable Yobani Trejo MD Unavailable Unavailable Yobani Trejo MD Unavailable Unavailable Yobani Trejo MD Unavailable Unavailable Yobani Trejo MD Unavailable Unavailable Yobani Trejo MD Unavailable Unavailable Yobani Trejo MD Unavailable Unavailable Yobani Trejo MD Unavailable Unavailable Yobani Trejo MD Unavailable Unavailable Yobani Trejo MD Unavailable Unavailable Yobani Trejo MD Unavailable Unavailable Yobani Trejo MD Unavailable Unavailable Yobani Trejo MD Unavailable Unavailable Yobani Trejo MD Unavailable Unavailable WOLFENDEN, T HAYDEN PA Unavailable Unavailable WOLFENDEN, T HAYDEN PA Unavailable Unavailable WOLFENDEN, T HAYDEN PA Unavailable Unavailable WOLFENDEN, T HAYDEN PA Unavailable Unavailable WOLFENDEN, T HAYDEN PA Unavailable Unavailable WOLFENDEN, T HAYDEN PA Unavailable Unavailable WOLFENDEN, T HAYDEN PA Unavailable Unavailable WOLFENDEN, T HAYDEN PA Unavailable Unavailable WOLFENDEN, T HAYDEN PA Unavailable Unavailable WOLFENDEN, T HAYDEN PA Unavailable Unavailable WOLFENDEN, T HAYDEN PA Unavailable Unavailable WOLFENDEN, T HAYDEN PA Unavailable Unavailable WOLFENDEN, T HAYDEN PA Unavailable Unavailable WOLFENDEN, T HAYDEN PA Unavailable Unavailable WOLFENDEN, T HAYDEN PA Unavailable Unavailable WOLFENDEN, T HAYDEN PA Unavailable Unavailable WOLFENDEN, T HAYDEN PA Unavailable Unavailable WOLFENDEN, T HAYDEN PA Unavailable Unavailable WOLFENDEN, T HAYDEN PA Unavailable Unavailable WOLFENDEN, T HAYDEN PA Unavailable Unavailable WOLFENDEN, T HAYDEN PA Unavailable Unavailable WOLFENDEN, T HAYDEN PA Unavailable Unavailable WOLFENDEN, T HAYDEN PA Unavailable Unavailable WOLFENDEN, T HAYDEN PA Unavailable Unavailable WOLFENDEN, T HAYDEN PA Unavailable Unavailable WOLFENDEN, T HAYDEN PA Unavailable Unavailable WOLFENDEN, T HAYDEN PA Unavailable Unavailable WOLFENDEN, T HAYDEN PA Unavailable Unavailable WOLFENDEN, T HAYDEN PA Unavailable Unavailable WOLFENDEN, T HAYDEN PA Unavailable Unavailable Del Real, W Karthikeyan RPA-C Unavailable Unavailable Del Real, W Karthikeyan RPA-C Unavailable Unavailable Del Real, W Karthikeyan RPA-C Unavailable Unavailable Del Real, W Karthikeyan RPA-C Unavailable Unavailable Del Real, W Karthikeyan RPA-C Unavailable Unavailable Del Real, W Karthikeyan RPA-C Unavailable Unavailable Del Real, W Karthikeyan RPA-C Unavailable Unavailable Del Real, W Karthikeyan RPA-C Unavailable Unavailable Del Real, W Karthikeyan RPA-C Unavailable Unavailable Del Real, W Karthikeyan RPA-C Unavailable Unavailable Del Real, W Karthikeyan RPA-C Unavailable Unavailable Del Real, W Karthikeyan RPA-C Unavailable Unavailable Del Real, W Karthikeyan RPA-C Unavailable Unavailable Del Real, W Karthikeyan RPA-C Unavailable Unavailable Del Real, W Karthikeyan RPA-C Unavailable Unavailable Del Real, W Karthikeyan RPA-C Unavailable Unavailable Del Real, W Karthikeyan RPA-C Unavailable Unavailable LENA, BEATA WILD PA Unavailable Unavailable LENA, BEATA WILD PA Unavailable Unavailable LENA, BEATA WILD PA Unavailable Unavailable LENA, BEATA WILD PA Unavailable Unavailable LENA, BEATA WILD PA Unavailable Unavailable LENA, BEATA WILD PA Unavailable Unavailable LENA, BEATA WILD PA Unavailable Unavailable LENA, BEATA WILD PA Unavailable Unavailable LENA, BEATA WILD PA Unavailable Unavailable LENA, BEATA WILD PA Unavailable Unavailable LENA, BEATA WILD PA Unavailable Unavailable LENA, BEATA WILD PA Unavailable Unavailable LENA, BEATA WILD PA Unavailable Unavailable LENA, BEATA WILD PA Unavailable Unavailable LENA, BEATA WILD PA Unavailable Unavailable LENA, BEATA WILD PA Unavailable Unavailable LENA, BEATA WILD PA Unavailable Unavailable LENA, BEATA WILD PA Unavailable Unavailable LENA, BEATA WILD PA Unavailable Unavailable LENA, BEATA WILD PA Unavailable Unavailable LENA, BEATA WILD PA Unavailable Unavailable LENA, BEATA WILD PA Unavailable Unavailable Re-disclosure Warning The records that you are about to access may contain information from federally-assisted alcohol or drug abuse programs. If such information is present, then the following federally mandated warning applies: This information has been disclosed to you from records protected by federal confidentiality rules (42 CFR part 2). The federal rules prohibit you from making any further disclosure of this information unless further disclosure is expressly permitted by the written consent of the person to whom it pertains or as otherwise permitted by 42 CFR part 2. A general authorization for the release of medical or other information is NOT sufficient for this purpose. The Federal rules restrict any use of the information to criminally investigate or prosecute any alcohol or drug abuse patient.The records that you are about to access may contain highly sensitive health information, the redisclosure of which is protected by Article 27-F of the [facility] Public Health law. If you continue you may have access to information: Regarding HIV / AIDS; Provided by facilities licensed or operated by the [facility] Office of Mental Health; or Provided by the [facility] Office for People With Developmental Disabilities. If such information is present, then the following [facility] mandated warning applies: This information has been disclosed to you from confidential records which are protected by state law. State law prohibits you from making any further disclosure of this information without the specific written consent of the person to whom it pertains, or as otherwise permitted by law. Any unauthorized further disclosure in violation of state law may result in a fine or assisted sentence or both. A general authorization for the release of medical or other information is NOT sufficient authorization for further disc losure. Family History Family Member Name Family Member Gender Family Member Status Date o f Status Description Data Source(s) Unknown Female Problem [employer] ([employer] [place]) Encounters Encounter Providers Location Date Indications Data Source(s ) Emergency Attender: SCOTTY Delgadoer: Sandro AGUILAR EMERGENCY ROOM-ER 08/25/2020 05:21:00 PM EST - 08/25/2020 07:40:00 PM [facility] Patient discharged. Outpatient Attender: OTHER PHYSICIANRef errer: SHEILA BLEVINS PAConsultant: [facility] [id number] 08/22/2020 12:06:00 PM EST [facility] Emergency Attender: HAYDEN Rizzo: Angelica AGUILAR EMERGENCY ROOM-ER 08/22/2020 10:18:00 AM EST - 08/22/2020 12:15:00 PM [facility] Patient discharged. Outpatient Attender: Traci Trejo MD 0 07/21/2020 01:31:11 PM EST - 07/21/2020 03:18:16 PM EST [facility] ([facility]) Emergency Attender: Karthikeyan Del Real RPA-CReferrer: Michael AGUILAR EMERGENCY ROOM-ER 02/15/2020 12:18:00 PM EDT - 02/15/2020 03:40:00 PM [facility] Patient discharged. Outpatient Attender: Karthikeyan Del Real RPA-CConsultant: Johnnie Ho sp [id number] 02/15/2020 11:58:00 AM EDT [facility] Emergency Attender: HAYDEN CORLEYeferrer: Mio Greenberg MD EMERGENCY ROOM-ER 06/22/2019 06:08:00 PM EST - 06/22/2019 07:48:00 PM [facility] Patient discharged. Outpatient Attender: OTHER PHYSICIANRef errer: SHEILA BLEVINS [facility]ons[facility]ant[facility] [id number] 06/22/2019 05:40:00 PM [facility] Emergency Attender: WILD Jaegererrer: Mio Greenberg MD EMERGENCY ROOM-ER 04/27/2019 09:53:00 PM EST - 04/27/2019 10:52:00 PM [facility] Patient discharged. Outpatient Attender: WILD PAREDES PAConsultant: [facility] [id number] 04/27/2019 09:36:00 PM [facility] Medications Medication Brand Name Start Date Product Form Dose Route Admi nistrative Instructions Pharmacy Instructions Status Indications Reaction Description Data Source(s) Ondansetron 4 MG Disintegrating Oral Tablet ONDANSETRON 03/20/2021 12:00:00 AM EDT tablet,disintegrating 16 DISSOLVE O NE TABLET ON TONGUE EVERY 6 TO 8 HOURS NEEDED FOR NAUSEA / VOMITING DISSOLVE ONE TABLET ON TONGUE EVERY 6 TO 8 HOURS NEEDED FOR NAUSEA / VOMITING SOLD: 03/30/2021 [facility] 5.7-1.4 mg 03/20/2021 12:00:00 AM EDT tablet, sublingual 75 PLACE 2+1/2 TABLETS UNDER THE TONGUE EVERY DAY MAXIMUM DAILY DOSE = 2 1/[address] 2+1/2 TABLETS UNDER THE TONGUE EVERY DAY MAXIMUM DAILY DOSE = 2 1/2 TABLETS SOLD: 03/30/2021 [facility] 10 mg 03/20/2021 12:00:00 AM EDT tablet 20 TAKE ONE TABLET BY MOUTH EVERY 6 HOURS NEEDED FOR PAIN TAKE ONE TABLET BY MOUTH EVERY 6 HOURS A S NEEDED FOR PAIN SOLD: 03/30/2021 [facility] 800-160 mg 03/16/2021 12:00:00 AM EDT tablet 20 TAKE ONE TABLET BY MOUTH EVERY 12 HOURS UNTIL GONE TAKE ONE TABLET BY MOUTH EVERY 12 HOURS UNTIL GONE SOLD: 03/16/2021 [facility] 100 mg 03/08/2021 12:00:00 AM EDT capsule 90 TAKE ONE CAPSULE BY MOUTH THREE TIMES A DAY DIRECTED TAKE ONE CAPSULE BY MOUTH THREE TIMES A DAY DIRECTE D SOLD: 03/16/2021 [facility] 5.7-1.4 mg 01/11/2021 12:00:00 AM EDT tablet, sublingual 75 PLACE TWO AND A HALF TABLETS BY MOUTH UNDER THE TONGUE ONCE A DAY MAXIMUM DAILY DOSE = 2 & 1/[address] TWO AND A HALF TABLETS BY MOUTH UN RACHELLE THE TONGUE ONCE A DAY MAXIMUM DAILY DOSE = 2 & 1/2 TABLETS SOLD: 02/28/2021 [facility] 5.7-1.4 mg 01/11/2021 12:00:00 AM EDT tablet, sublingual 75 PLACE TWO AND A HALF TABLETS BY MOUTH UNDER THE TONGUE ONCE A DAY MAXIMUM DAILY DOSE = 2 & 1/[address] TWO AND A HALF TABLETS BY MOUTH UN RACHELLE THE TONGUE ONCE A DAY MAXIMUM DAILY DOSE = 2 & 1/2 TABLETS SOLD: 01/22/2021 [facility] 5.7-1.4 mg 12/01/2020 12:00:00 AM EDT tablet, sublingual 75 DISSOLVE 2 & 1/2 TABLETS UNDER THE TONGUE ONCE DAILY MAXIMUM DAILY DOSE = 2 & 1/2 DISSOLVE 2 & 1/2 TABLETS UNDER THE TONGUE ONCE DAILY MAXIMUM DAILY DOSE = 2 & 1/2 SOLD: 12/14/2020 [facility] 5.7-1.4 mg 10/27/2020 12:00:00 AM EDT tablet, sublingual 75 PLACE TWO AND ONE-HALF TABLETS UNDER THE TONGUE EVERY DAY MAXIMUM DAILY DOSE = 2 1/[address] TWO AND ONE-HALF TABLETS UNDER THE TONGUE EVERY DAY MAXIMUM DAILY DOSE = 2 1/2 TABLETS SOLD: 11/08/2020 [facility] 5.7-1.4 mg 10/02/2020 12:00:00 AM EDT tablet, sublingual 63 TAKE 2 & 1/2 TABLETS UNDER THE TONGUE ONCE A DAY MAXIMUM DAILY DOSE = 2 & 1/2 TABLETS TAKE 2 & 1/2 TABLETS UNDER THE TONGUE ONCE A DAY MAXIMUM DAILY DOSE = 2 & 1/2 TABLETS SOLD: 10/11/2020 [facility] 5.7-1.4 mg 09/04/2020 12:00:00 AM EST tablet, sublingual 75 TAKE 2 AND 1/2 TABLETS UNDER THE TONGUE ONCE DAILY MAXIMUM DAILY DOSE = 2 AND 1/2 TABLETS TAKE 2 AND 1/2 TABLETS UNDER THE TONGUE ONCE DAILY MAXIMUM DAILY DOSE = 2 AND 1/2 TABLETS SOLD: 09/08/2020 [facility] 10 mg 08/26/2020 12:00:00 AM EST tablet 15 TAKE ONE TABLET BY MOUTH THREE TIMES A DAY TAKE ONE TABLET BY MOUTH THREE TIMES A DAY SOLD: 08/26/2020 [facility] 100 mg 08/22/2020 12:00:00 AM EST capsule 20 TAKE ONE CAPSULE BY MOUTH TWICE A DAY WITH FOOD FOR 10 DAYS TAKE ONE CAPSULE BY MOUTH TWICE A DAY WI TH FOOD FOR 10 DAYS SOLD: 08/22/2020 [facility] 4 mg 08/22/2020 12:00:00 AM EST tablet,disintegrating [address] ONE TABLET BY MOUTH THREE TIMES A DAY NEEDED PLACE ONE TABLET BY MOUTH THREE TIMES A DAY NEEDED SOLD: 08/22/2020 [facility] 5.7-1.4 mg 07/29/2020 12:00:00 AM EST tablet, sublingual 75 TAKE 2 & 1/2 TABLETS BY MOUTH UNDER TONGUE ONCE DAY MAXIMUM DAILY DOSE = 2 & 1/2 TABLETS TAKE 2 & 1/2 TABLETS BY MOUTH UNDER TONGUE ONCE DAY MAXIMUM DAILY DOSE = 2 & 1/2 TABLETS SOLD: 08/01/2020 [facility] 5.7-1.4 mg 06/30/2020 12:00:00 AM EST tablet, sublingual 75 PLACE TWO AND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
[2021-04-22] MEDS ORDERED: METOCLOPRAMIDE INJ 10MG/2ML VIAL (J2765 PER 1) IV ONE (17:05)
[2021-04-22] MEDS ORDERED: diphenhydrAMINE 50MG/ML VIAL (J1200) IV ONE (17:05)
[2021-04-22] MEDS ORDERED: NS 1,000 ML IV ONE (17:05)
[2021-04-22] MEDS: ACETAMINOPHEN 500 MG TAB PO ONE ×2 (17:48→20:21)
[2021-04-22 18:19] LABS: BASO % 0.4 % (0.0-1.0); EOS % 0.1 % (0.0-3.0); HEMATOCRIT 45.2 % (36.0-47.0); HEMOGLOBIN 14.3 g/dl (12.0-15.5); LYMPH # 1.4 10^3/uL (1.5-5.0); MEAN CORPUSCULAR HEMOGLOBIN 26.6 pg (27.0-33.0); MEAN CORPUSCULAR HGB CONC 31.6 g/dl (32.0-36.5); MEAN CORPUSCULAR VOLUME 84.2 fl (80.0-96.0); MONO # 0.5 10^3/uL (0.0-0.8); MONO % 6.4 % (2.0-8.0); NEUTROPHILS # 6.5 10^3/uL (1.5-8.5); NEUTROPHILS % 76.9 % (36.0-66.0); PLATELET COUNT, AUTOMATED 302 10^3/uL (150-450); RED BLOOD COUNT 5.37 10^6/uL (4.00-5.40); WHITE BLOOD COUNT 8.5 10^3/uL (4.0-10.0)
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
[2021-04-22 18:47] LABS: ALBUMIN 4.4 GM/DL (3.2-5.2); BILIRUBIN,DIRECT 0.1 MG/DL (0.0-0.2); BILIRUBIN,TOTAL 0.3 MG/DL (0.2-1.0); TOTAL PROTEIN 8.7 GM/DL (6.4-8.2)
--- NOTE | 2021-04-22 19:30 | REPVR ---
PROCEDURE INFORMATION: Exam: CT Abdomen And Pelvis Without Contrast Exam date and time: 04/22/2021 6:53 PM Age: 26 years old Clinical indication: Abdominal pain; Flank; Right; Additional info: R flank pain TECHNIQUE: Imaging protocol: Computed tomography of the abdomen and pelvis without contrast. Radiation optimization: All CT scans at this facility use at least one of these dose optimization techniques: automated exposure control; mA and/or kV adjustment per patient size (includes targeted exams where dose is matched to clinical indication); or iterative reconstruction. COMPARISON: CT ABD PELVIS W/O CONTRAST 03/15/2021 6:10 PM FINDINGS: Lungs: No suspicious mass or airspace process in the visualized lung bases. Liver: Noncontrast liver shows no obvious lesion. Gallbladder and bile ducts: Gallbladder is present and shows no evidence of gallstone. Pancreas: Noncontrast pancreas shows no obvious mass or adjacent fluid. Spleen: Noncontrast spleen shows no obvious focal deformity. Adrenal glands: Adrenal glands are normal in appearance. Kidneys and ureters: Kidneys are unremarkable aside from punctate nonobstructive left renal calculi. No hydronephrosis . Punctate calcified structures at the right posterior urinary bladder, similar to March 2019. Stomach and bowel: Limited evaluation without enteric or IV contrast. No evidence of small bowel obstruction. No evidence of acute diverticulitis. Appendix: Normal-appearing retrocecal appendix is identified, without inflammation. Intraperitoneal space: No pneumoperitoneum. Vasculature: No aortic aneurysm. Lymph nodes: Small, nonspecific mesenteric lymph nodes are present. Urinary bladder: Urinary bladder appears normal. Reproductive: Female reproductive organs appear unremarkable. Bones/joints: Bony structures show no acute fracture or destructive process. Soft tissues: Fat containing umbilical hernia is present. Other findings: No concerning asymmetry or abnormality at the GE junction. IMPRESSION: No evidence of obstructive uropathy. Nonobstructive punctate left renal calculi are present. Stable right posterior bladder calcifications unchanged since 2018. Electronically signed by: Curt Barboza On 04/22/2021 19:29:56 PM
[2021-04-22 19:55] VITALS: BP 116/61
== END 2021-04-22 20:16 | disposition home or self-care (01) ==
LOC: M ED 13:10
DX: R30.0 Dysuria (principal); R10.9 Unspecified abdominal pain; R11.2 Nausea with vomiting, unspecified; Z87.442 Personal history of urinary calculi; Z87.448 Personal history of other diseases of urinary system; F17.200 Nicotine dependence, unspecified, uncomplicated; Z84.1 Family history of disorders of kidney and ureter; Z79.899 Other long term (current) drug therapy; Z88.0 Allergy status to penicillin; Z88.1 Allergy status to other antibiotic agents; Z88.4 Allergy status to anesthetic agent
CPT/HCPCS: 74176; 80047; 80076; 81001; 83690; 84702; 85025; 87086; 96361; 96374; 96375; 99284; J1200; J2765

== ENCOUNTER 2021-07-04 15:11 | Outpatient (RCR) | payer OTHER | END 2021-07-25 | LOC: M OUTALCOH 15:11 | PROVIDERS: ATTEND Psychiatry & Neurology Psychiatry | DX: F11.21 Opioid dependence, in remission (principal); F17.209 Nicotine dependence, unspecified, with unspecified nicotine-induced disorders; F13.10 Sedative, hypnotic or anxiolytic abuse, uncomplicated ==

== ENCOUNTER 2021-09-05 14:52 | Outpatient (RCR) | payer OTHER | END 2021-09-22 | LOC: M OUTALCOH 14:52 | PROVIDERS: ATTEND Psychiatry & Neurology Psychiatry | DX: F11.21 Opioid dependence, in remission (principal); F17.209 Nicotine dependence, unspecified, with unspecified nicotine-induced disorders; F13.99 Sedative, hypnotic or anxiolytic use, unspecified with unspecified sedative, hypnotic or anxiolytic-induced disorder ==

== ENCOUNTER 2021-10-31 15:04 | Outpatient (RCR) | payer OTHER | END 2021-11-22 | LOC: M OUTALCOH 15:04 | PROVIDERS: ATTEND Psychiatry & Neurology Psychiatry | DX: F11.21 Opioid dependence, in remission (principal); F17.209 Nicotine dependence, unspecified, with unspecified nicotine-induced disorders; F13.99 Sedative, hypnotic or anxiolytic use, unspecified with unspecified sedative, hypnotic or anxiolytic-induced disorder ==

== ENCOUNTER 2021-12-12 14:37 | Outpatient (RCR) | payer OTHER | END 2021-12-22 | LOC: M OUTALCOH 14:37 | PROVIDERS: ATTEND Psychiatry & Neurology Psychiatry | DX: F11.21 Opioid dependence, in remission (principal); F17.209 Nicotine dependence, unspecified, with unspecified nicotine-induced disorders; F13.99 Sedative, hypnotic or anxiolytic use, unspecified with unspecified sedative, hypnotic or anxiolytic-induced disorder ==

== ENCOUNTER 2022-01-25 15:30 | Outpatient (RCR) | payer OTHER ==
[~2022-01-25 15:30] MED LIST changes: -LABE100T4 PO; -LABE100T5 PO; +LABE100T6 PO; +LABE100T71 PO
== END 2022-02-22 ==
LOC: M OUTALCOH 15:30
PROVIDERS: ATTEND Psychiatry & Neurology Psychiatry
DX: F11.21 Opioid dependence, in remission (principal); F17.209 Nicotine dependence, unspecified, with unspecified nicotine-induced disorders

== ENCOUNTER 2022-03-23 16:00 | Outpatient (RCR) | payer OTHER | END 2022-03-24 | LOC: M OUTALCOH 16:00 | PROVIDERS: ATTEND Psychiatry & Neurology Psychiatry | DX: F11.21 Opioid dependence, in remission (principal); F17.209 Nicotine dependence, unspecified, with unspecified nicotine-induced disorders ==

== ENCOUNTER 2022-04-04 15:00 | Outpatient (RCR) | payer OTHER | END 2022-04-24 | LOC: M OUTALCOH 15:00 | PROVIDERS: ATTEND Psychiatry & Neurology Psychiatry | DX: F11.21 Opioid dependence, in remission (principal); F17.209 Nicotine dependence, unspecified, with unspecified nicotine-induced disorders; F13.99 Sedative, hypnotic or anxiolytic use, unspecified with unspecified sedative, hypnotic or anxiolytic-induced disorder ==

== ENCOUNTER 2022-05-11 14:10 | Outpatient (RCR) | payer OTHER | END 2022-05-24 | LOC: M OUTALCOH 14:10 | PROVIDERS: ATTEND Psychiatry & Neurology Psychiatry | DX: F11.21 Opioid dependence, in remission (principal); F17.209 Nicotine dependence, unspecified, with unspecified nicotine-induced disorders ==

== ENCOUNTER 2022-06-22 15:13 | Outpatient (RCR) | payer OTHER | END 2022-06-24 | LOC: M OUTALCOH 15:13 | PROVIDERS: ATTEND Psychiatry & Neurology Psychiatry | DX: F11.21 Opioid dependence, in remission (principal); F17.209 Nicotine dependence, unspecified, with unspecified nicotine-induced disorders; F13.99 Sedative, hypnotic or anxiolytic use, unspecified with unspecified sedative, hypnotic or anxiolytic-induced disorder ==

== ENCOUNTER 2022-07-13 15:55 | Outpatient (RCR) | payer OTHER ==
[~2022-07-13 15:55] MED LIST changes: +LIDO15SO4 IC; -LIDO2SOL17 IC
== END 2022-07-25 ==
LOC: M OUTALCOH 15:55
PROVIDERS: ATTEND Psychiatry & Neurology Psychiatry
DX: F11.21 Opioid dependence, in remission (principal); F17.209 Nicotine dependence, unspecified, with unspecified nicotine-induced disorders

== ENCOUNTER 2022-08-10 11:07 | Outpatient (RCR) | payer OTHER | END 2022-08-22 | LOC: M OUTALCOH 11:07 | PROVIDERS: ATTEND Internal Medicine | DX: F11.21 Opioid dependence, in remission (principal); F17.209 Nicotine dependence, unspecified, with unspecified nicotine-induced disorders ==

== ENCOUNTER 2022-10-19 11:02 | Outpatient (RCR) | payer OTHER ==
[~2022-10-19 11:02] MED LIST changes: +LIDO15SO IC; -LIDO15SO4 IC
== END 2022-10-22 ==
LOC: M OUTALCOH 11:02
PROVIDERS: ATTEND Psychiatry & Neurology Psychiatry
DX: F11.21 Opioid dependence, in remission (principal); F17.209 Nicotine dependence, unspecified, with unspecified nicotine-induced disorders

== ENCOUNTER 2022-12-14 13:11 | Outpatient (RCR) | payer OTHER | END 2022-12-22 | LOC: M OUTALCOH 13:11 | PROVIDERS: ATTEND Psychiatry & Neurology Psychiatry | DX: F11.21 Opioid dependence, in remission (principal); F13.99 Sedative, hypnotic or anxiolytic use, unspecified with unspecified sedative, hypnotic or anxiolytic-induced disorder; F17.209 Nicotine dependence, unspecified, with unspecified nicotine-induced disorders ==

== ENCOUNTER 2023-01-29 08:42 | Outpatient (RCR) | payer OTHER ==
[~2023-01-29 08:42] MED LIST changes: -GABA-283 PO; +GABA-284 PO
== END 2023-02-22 ==
LOC: M OUTALCOH 08:42
PROVIDERS: ATTEND Psychiatry & Neurology Child & Adolescent Psychiatry
DX: F11.21 Opioid dependence, in remission (principal); F17.209 Nicotine dependence, unspecified, with unspecified nicotine-induced disorders

== ENCOUNTER 2023-03-26 08:10 | Outpatient (RCR) | payer OTHER | END 2023-04-24 | LOC: M OUTALCOH 08:10 | PROVIDERS: ATTEND Psychiatry & Neurology Child & Adolescent Psychiatry | DX: F11.21 Opioid dependence, in remission (principal); F17.209 Nicotine dependence, unspecified, with unspecified nicotine-induced disorders; F13.99 Sedative, hypnotic or anxiolytic use, unspecified with unspecified sedative, hypnotic or anxiolytic-induced disorder ==

== ENCOUNTER 2023-05-22 15:58 | Outpatient (RCR) | payer OTHER | END 2023-05-24 | LOC: M OUTALCOH 15:58 | PROVIDERS: ATTEND Psychiatry & Neurology Child & Adolescent Psychiatry | DX: F11.21 Opioid dependence, in remission (principal); F17.209 Nicotine dependence, unspecified, with unspecified nicotine-induced disorders ==

== ENCOUNTER 2023-07-16 08:08 | Outpatient (RCR) | payer OTHER ==
[~2023-07-16 08:08] MED LIST changes: -NITR1CAP27 PO; +NITR50CA51 PO
== END 2023-07-25 ==
LOC: M OUTALCOH 08:08
PROVIDERS: ATTEND Psychiatry & Neurology Child & Adolescent Psychiatry
DX: F11.21 Opioid dependence, in remission (principal); F17.209 Nicotine dependence, unspecified, with unspecified nicotine-induced disorders

== ENCOUNTER 2023-09-10 08:04 | Outpatient (RCR) | payer OTHER ==
[~2023-09-10 08:04] MED LIST changes: +LABE100T40 PO; -LABE100T71 PO; -LIDO15SO IC; +LIDO15SO8 IC
== END 2023-09-23 ==
LOC: M OUTALCOH 08:04
PROVIDERS: ATTEND Psychiatry & Neurology Psychiatry
DX: F11.21 Opioid dependence, in remission (principal); F17.209 Nicotine dependence, unspecified, with unspecified nicotine-induced disorders